=== PATIENT | female | born 1945 | race Caucasian/White ===

== ENCOUNTER 2017-01-23 23:46 | Inpatient (IN) | payer OTHER ==
[~2017-01-23] VITALS: Ht 162.6 cm; Wt 96.0 kg
[2017-01-24] VITALS (27 sets, daily range): BP systolic 75–146; BP diastolic 49–84; PULSE 64–132; TEMP 37–38.5; O2SAT 30–100; BMI 34.2
[2017-01-24] MEDS ORDERED: SODIUM CHLORIDE 0.9% 1000ML 1,000 ML IV SCH (01:45)
--- NOTE | 2017-01-24 01:50 | History and Physical ---
History & Physical Date & Time of Service: Jan 24, 2017 at 01:50 Chief Complaint: Sepsis, Unknown Source Primary Care Physician: Chato Tavarez M.D. History of Present Illness Source: family, hospital records Patient presented to the ED in [place] with family members for concern for sepsis earlier today. According to hospital records the patient was suffering from " burning up", cough and vomiting frequently in the am. Throughout the day the patient had started to develop an altered level of consciousness and brought her to the E D for evaluation. The patient was assessed and was extremely agitated in the ED. She was given 4 mg of Haldol and 4 mg of Ativan for agitation. She was found to have a lactate of 2.6 and a WBC of 11.5. The axillary temp was WNL however her rectal temp was found to be 102.5F. The patient received 2 G of Rocephin in their ED and 2 L of fluids. No source of sepsis was noted. Our hospitalist was contacted for transfer. She did receive an additional bolus of fluid en route. Past Medical/Surgical History Acute SC with stent placement HTN DMII Appendectomy Hysterectomy Family History Unable to obtain Social History Smoking Status: Unknown if Ever Smoked Smokeless Tobacco Use: Unknown Marital Status: Housing status: lives with family Immunizations History of Influenza Vaccine: Unknown History of Tetanus Vaccine?: Unknown History of Pneumococcal: Unknown History of Hepatitis B Vaccine: Unknown Allergies Coded Allergies: No Known Allergies (Unverified , 01/24/17) Home Medications Scheduled Alprazolam (Alprazolam), 1 TAB PO DAILY Atorvastatin (Lipitor), 1 TAB PO DAILY Citalopram Hydrobromide (Citalopram Hydrobromide), 1 TAB PO DAILY Clopidogrel (Plavix), 75 MG PO DAILY Famotidine (Pepcid), 40 MG PO DAILY Folic Acid (Folvite), 1 TAB PO DAILY Furosemide (Lasix), 1 TAB PO DAILY Gabapentin (Neurontin), 100 MG PO BID Glipizide (Glucotrol), 1 TAB PO BID Insulin Human NPH (Humulin N), DAILY Scheduled PRN Hydrocodone/Acetaminophen 10MG/325MG (Reliance 10MG/325MG), 1 TAB PO BID PRN for Pain Miscellaneous Medications Insulin Lispro (Human) (Humalog Kwikpen), SC Review of Systems Unable to obtain reliable ROS secondary to sedation Physical Exam General Appearance: + pertinent finding (somnolent) Head: normocephalic, atraumatic Eyes: normal inspection ENT: normal ENT inspection Neck: supple Respiratory/Chest: normal breath sounds, no respiratory distress, no accessory muscle use Cardiovascular: regular rate, rhythm, no murmur, normal peripheral pulses Abdomen/GI: normal bowel sounds, non tender, soft Back: normal inspection Extremities/Musculoskelatal: no calf tenderness, no pedal edema, normal range of motion Neurologic/Psych: + disoriented, + pertinent finding (somnolent) Skin: warm/dry, no rash, + pertinent finding (flushed) Lymphatic: no adenopathy Impression Assessment and Plan Sepsis of an unknown source - ICU admission - As there is known source for sepsis and exam is essentially benign decision was made for CT chest/ abd / pelvis - CBC/ CMP/ INR/ PTT - Lipase - Troponin/ CKMB/ CPK - Lyme/ Influenza - EKG - CT head considering level of agitation/ combativeness/ ALOC - Empirically cover with zosyn/ vanc/ levofloxacin - NSS @ 1250 cc/h - NPO - blood cultures DMII - Glipizide held - Insulin ISS with BSG AC/ HS - glycemic control consult HTN /CAD - Atorvastatin 40 mg held - Plavix and lasix 20 mg held Depression/ anxiety - Citalopram 20 mg held - alprazolam 0.5 mg daily held; Ativan 1 mg IV is available Neuropathy - Gabapentin 100 mg bid held - Hydrocodone- acet 10-325 mg held GERD - Famotidine 40 mg held - Protonix 40 mg IV daily for GI prophylaxis DVT Prophylaxis - SCD, heparin bid Son: Dimitri [phone] Attending Addendum: I have physically seen and examined this patient, have directed the resident's medical activities, and agree with the H&P as noted above with the following exceptions as noted. The patient is sedated, normocephalic and atraumatic, lying in bed and in no acute distress. HEENT--PERRL, EOMI, mucous membranes and oropharynx dry. Neck--supple, no JVD or bruits, thyroid normal, trachea midline, no adenopathy. Heart--normal S1 and S2, no extra beats, no murmurs, rubs or gallops. Lungs--decreased breath sounds throughout, no respiratory distress, no accessory muscle use. Abdomen--normal bowel sounds and soft, nontender and nondistended, no hernias or masses, no organomegaly. Extremities--no cyanosis, clubbing or edema. There are good distal pulses b/l. Dermatologic--normal skin turgor, normal color, warm and dry, no abnormal lymph nodes, no rash. Neurologic--cranial nerves II through XII grossly intact. Rheumatologic--normal range of motion. Psychiatric--sedated, intermittently disoriented Assessment and Plan: Sepsis, presumptive UTI-- Admit to the ICU. Order full Laboratories including cardiac enzymes noted above. Check Lyme and influenza Order CTA of the head, chest abdomen and pelvis to look for source. Empirically treat with Zosyn IV, vancomycin IV and Levaquin IV. NSS at 125 ML's per hour Follow urine and blood cultures. Check EKG. Diabetes mellitus-- Oral medications held Place on Accu-Cheks before meals and at bedtime or 4 times a day with NovoLog coverage per scale CAD/hypertension/CABG-- Hold atorvastatin, Plavix and Lasix until taking oral meds. Anxiety with depression-- Hold citalopram and alprazolam until taking by mouth. As a 1 mg IV every 4 hours when necessary GERD-- Hold oral famotidine. Protonix 40 mg IV daily. Neuropathy-- Hold gabapentin taking oral. Level of Care Critical Care Advanced Directives Existing Advance Directive: No Existing Living Will: No Existing Power of Sql Report Developer: No Resuscitation Status FULL RESUSCITATION VTE Prophylaxis VTE Risk Assessment Done? Y/N: Yes Risk Level: Moderate Given or contraindicated: Unfractionated heparin SQ, SCD's Social Service Consult None Apply Note Total Time: Critical Care 30 - 74 minutes Additional Copies To Chato Tavarez M.D.
[2017-01-24] MEDS ORDERED: LORAZEPAM 2 MG/ML 1 ML VIAL ONE (01:54)
[2017-01-24] MEDS ORDERED: LORAZEPAM INJ 1 MG in SYRINGE 0.5 ML IV PRN (02:00)
[2017-01-24] MEDS ORDERED: OPTIRAY 320 IV PRN (02:00)
[2017-01-24] MEDS ORDERED: PHARMACY GLYCEMIC MGMT CONSULT PRN (02:06)
[2017-01-24] MEDS ORDERED: PATIENT'S ALLERGY INFO NEEDS ENTERED SCH (02:15)
[2017-01-24] MEDS ORDERED: PATIENT'S HEIGHT AND/OR WEIGHT NEEDED SCH (02:15)
[2017-01-24] MEDS: LORAZEPAM 2 MG/ML 1 ML VIAL IV PRN ×3 (02:57→14:38)
[2017-01-24] MEDS ORDERED: LEVOFLOXACIN / D5W 750 MG in PREMIXED IN D5W 150 ML IV STA (02:58)
[2017-01-24] MEDS ORDERED: PIPERACILL/TAZOBAC IV 3.375 GM in DEXTROSE 5% 100ML 100 ML IV STA (02:59)
[2017-01-24] MEDS ORDERED: FOLI1TAB7 PO (03:04)
[2017-01-24] MEDS ORDERED: ATOR-24 PO (03:04)
[2017-01-24] MEDS ORDERED: CLOP1TAB15 PO (03:04)
[2017-01-24] MEDS ORDERED: FURO-85 PO (03:04)
[2017-01-24] MEDS ORDERED: HYDR-4079 PO (03:04)
[2017-01-24] MEDS ORDERED: INSU100I2 SC (03:04)
[2017-01-24] MEDS ORDERED: GLIP10TA9 PO (03:04)
[2017-01-24] MEDS ORDERED: ALPR-411 PO (03:04)
[2017-01-24] MEDS ORDERED: GABA-112 PO (03:04)
[2017-01-24] MEDS ORDERED: CITA20TA4 PO (03:04)
[2017-01-24] MEDS ORDERED: INSHNI (03:04)
[2017-01-24] MEDS ORDERED: FAMO40TA6 PO (03:04)
[2017-01-24 03:28] LABS: BASO % 0.1 %; BASO ABS # 0.02 K/uL (0-0.2); COMPLETE YES; HEMATOCRIT 41.6 % (37-47); IG% 0.3 %; LYMPH % 7.4 %; LYMPH ABS # 1.15 K/uL (1.2-3.4); MEAN CELL VOLUME 86.8 fL (80-100); MEAN CORPUSCULAR HGB CONC 33.4 g/dl (32-36); MEAN PLATELET VOLUME 11.5 fL (7.4-10.4); MONO % 2.7 %; NEUT % 89.5 %; PLATELET COUNT 262 K/uL (130-400); RED BLOOD COUNT 4.79 M/uL (4.2-5.4); WHITE BLOOD COUNT 15.46 K/uL (4.8-10.8)
[2017-01-24 03:35] LABS: PARTIAL THROMBOPLASTIN RATIO 0.9
[2017-01-24] MEDS ORDERED: NURSING VERBAL MED ORDER STA ×2 (03:49→06:25)
[2017-01-24 03:51] LABS: ALT/SGPT 18 U/L (12-78); AST/SGOT 15 U/L (15-37); BLOOD UREA NITROGEN 9 mg/dl (7-18); BUN/CREATININE RATIO 10.8 (10-20); CALCIUM 8.1 mg/dl (8.5-10.1); CARBON DIOXIDE 25 mmol/L (21-32); CHLORIDE 103 mmol/L (98-107); CREATININE 0.87 mg/dl (0.60-1.20); GLUCOSE 263 mg/dl (70-99); MAGNESIUM 1.3 mg/dl (1.8-2.4); POTASSIUM 3.8 mmol/L (3.5-5.1); SODIUM 138 mmol/L (136-145)
[2017-01-24] MEDS ORDERED: LORAZEPAM 2 MG/ML 1 ML VIAL IV STA (03:53)
[2017-01-24 03:58] LABS: ALB/GLOB RATIO 0.8 (0.9-2); ALKALINE PHOSPHATASE 97 U/L (45-117); CKMB/CK RATIO 7.2 (0-3.0)
[2017-01-24] MEDS ORDERED: INSULIN ASPART 100 UNITS/ML 3 ML PEN SC STA ×2 (04:03→06:48)
[2017-01-24] MEDS ORDERED: LANTUS PER UNIT CHARGE SQ STA (04:03)
[2017-01-24] MEDS ORDERED: METOPROLOL TARTRATE 1 MG/ML VIAL IV STA ×2 (04:14→04:33)
[2017-01-24] MEDS ORDERED: VANCOMYCIN CONSULT ACTIVE PRN (04:15)
[2017-01-24 04:16] LABS: LYME DISEASE AB IGG NEG (NEG); LYME DISEASE AB IGM NEG (NEG)
[2017-01-24] MEDS ORDERED: METOPROLOL TARTRATE 1 MG/ML VIAL ONE (04:22)
[2017-01-24] MEDS ORDERED: VANCOMYCIN INJ 2,000 MG in SODIUM CHLORIDE 0.9% 500ML 500 ML IV SCH (04:30)
[2017-01-24] MEDS ORDERED: INFLUENZA ADMINISTRATION CHARGE ONE (04:30)
[2017-01-24] MEDS ORDERED: INFLUENZA VACCINE HIGH DOSE 65+ 0.5 ML SYR IM. ONE (04:30)
[2017-01-24] MEDS: NSS + 20MEQ KCL 1000ML 1,000 ML IV SCH ×2 (04:30→18:36)
[2017-01-24] MEDS ORDERED: PIPERACILL/TAZOBAC CONSULT ACTIVE PRN (04:30)
[2017-01-24 04:40] LABS: INFLUENZA A PCR Neg for Influ A (NEG); INFLUENZA B PCR Neg for Influ B (NEG)
[2017-01-24] MEDS: MAGNESIUM SULFATE 1GM / D5W 1 GM in PREMIXED IN D5W 100 ML IV SCH ×2 (05:13→06:12)
--- NOTE | 2017-01-24 06:33 | DIAGNOSTIC IMAGING REPORT ---
HEAD WITHOUT CONTRAST (CT) CLINICAL HISTORY: 72 years-old Female with ALOC. Acute loss of consciousness. TECHNIQUE: Multiple axial CT images of the head were obtained without contrast. A dose lowering technique was utilized adhering to the principles of ALARA. COMPARISON: None. FINDINGS: Limited study secondary to motion No acute intracranial hemorrhage, midline shift, mass, large territorial ischemia or abnormal extra-axial collection. Mild atrophy with chronic microvascular ischemic changes. The calvarium is intact. The paranasal sinuses, mastoid air cells, and middle ear cavities are clear. IMPRESSION: 1. No acute intracranial abnormality. 2. Mild atrophy with chronic microvascular ischemic changes. The above report was generated using voice recognition software. It may contain grammatical, syntax or spelling errors. Electronically signed by: Kevan Parra M.D. 01/24/2017 6:32 AM Dictated Date/Time: 01/24/2017 6:30 AM
--- NOTE | 2017-01-24 06:40 | DIAGNOSTIC IMAGING REPORT ---
CT ABD/PELVIS IV CONTRAST ONLY CLINICAL HISTORY: sepsis unknown source COMPARISON STUDY: None. TECHNIQUE: Following the IV administration of 92 mL of Optiray-320, CT scan of the abdomen and pelvis was performed from the lung bases to the proximal femurs. Images are reviewed in the axial, sagittal, and coronal planes. IV contrast was administered without complication. A dose lowering technique was utilized adhering to the principles of ALARA. CT DOSE: FINDINGS: Lower chest: There is respiratory motion artifact. There are dependent atelectatic changes. Liver: The contrast-enhanced liver is normal in size, contour, and attenuation. There is no intrahepatic biliary ductal dilatation. The hepatic veins and portal veins are patent. Gallbladder: Unremarkable. Spleen: Normal in size and attenuation. Pancreas: Unremarkable. Adrenal glands: Unremarkable. Kidneys: There is a 13 mm left renal cyst. There is no hydronephrosis. Bowel: There are no transition zones indicate bowel obstruction. There are multiple colonic diverticula present. There is no acute diverticulitis. There are no findings to indicate acute appendicitis. Peritoneum: There is no intraperitoneal free air or abdominal ascites. 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 There is no evidence of abdominal aortic aneurysm. Adenopathy: None. Pelvic viscera: The uterus appears surgically absent. There is indwelling Soares catheter. Air within the bladder is likely iatrogenic. Skeletal structures: No destructive osseous lesions are seen. IMPRESSION: 1. Study compromised due to patient motion artifact 2. No evidence of bowel obstruction. No evidence of free air 3. No acute inflammatory changes Electronically signed by: Nemesio Wright M.D. 01/24/2017 6:39 AM Dictated Date/Time: 01/24/2017 6:36 AM
[2017-01-24] MEDS ORDERED: NURSING VERBAL MED ORDER ONE ×2 (06:45→21:15)
--- NOTE | 2017-01-24 06:48 | DIAGNOSTIC IMAGING REPORT ---
CT ANGIOGRAM OF THE CHEST CLINICAL HISTORY: Sepsis. Clinical suspected pulmonary embolism. COMPARISON STUDY: No previous studies for comparison. TECHNIQUE: Following the IV administration of 92 mL of Optiray-320, CT angiogram of the thorax was performed from the thoracic inlet to the lung bases utilizing the pulmonary embolus protocol. Images are reviewed in the axial, sagittal, and coronal planes. IV contrast was administered without complication. MIP imaging was performed. A dose lowering technique was utilized adhering to the principles of ALARA. CT DOSE: 3692.36 mGy.cm FINDINGS: No pathologically enlarged axillary mediastinal or hilar lymph nodes were visualized. There was no evidence of thoracic aortic dilatation. Evaluation of the pulmonary arteries are limited due to respiratory motion artifact. No central emboli are visualized. No pleural effusions are visualized. The examination is compromised due to motion artifact. There is no focal pulmonary consolidation. There are minor dependent atelectatic changes. The heart is enlarged. IMPRESSION: 1. Significantly limited study secondary to motion artifact 2. No pulmonary emboli identified 3. No evidence of focal pulmonary consolidation 4. Cardiomegaly Electronically signed by: Nemesio Wright M.D. 01/24/2017 6:46 AM Dictated Date/Time: 01/24/2017 6:43 AM
[2017-01-24] MEDS: INSULIN ASPART 100 UNITS/ML 3 ML PEN SC SCH ×4 (06:51→20:33)
[2017-01-24] MEDS ORDERED: ETOMIDATE 2 MG/ML 20 ML VIAL IV ONE (07:14)
[2017-01-24] MEDS ORDERED: GLYCOPYRROLATE INJ 0.2 MG/ML VIAL IM ONE (09:00)
[2017-01-24] MEDS ORDERED: VANCOMYCIN INJ 1,000 MG in SODIUM CHLORIDE 0.9% 250ML 250 ML IV SCH (09:00)
[2017-01-24] MEDS ORDERED: KETAMINE HCL INJ 100 MG/ML 5ML VIAL IM ONE (09:00)
[2017-01-24] MEDS ORDERED: MIDAZOLAM HCL 1 MG/ML 2ML VIAL IM ONE (09:00)
[2017-01-24 09:09] LABS: ISTAT ALLEN TEST Pass; ISTAT ARTERIAL BLOOD GAS HCO3 23 meq/L (19-24); ISTAT ARTERIAL BLOOD GAS PCO2 35 mmHg (35-46); ISTAT ARTERIAL BLOOD GAS PO2 96 mmHg (80-95); ISTAT ARTERIAL BLOOD GAS pH 7.43 (7.35-7.45); ISTAT CARBON DIOXIDE 24 mEq/l (24-31); ISTAT DELIVERY SYSTEM Cannula; ISTAT SITE L Radial
--- NOTE | 2017-01-24 10:00 | Critical Care Consultation ---
Critical Care Consultation Date of Consultation: Jan 24, 2017. Attending Physician: Ezra Mast M.D. Reason for Consultation: AMS, need to watch airway History of Present Illness 72F p/w AMS x 1 day duration. Was agitated in the ER and received 4mg of Haldol and 4mg of Ativan. Pt is unable to provide a history due to AMS. She has a 1 to 1 in the room because she was pulling at her lines. Wells catheter in place. Will try to talk to the family when they arrive. Per H&P AMS lasted from one day duration. Pt is being treated for sepsis with an unknown source. Possibilities include urosepsis or meningitis. Pt would need to be sedated for an LP. At present pt's airways appears secure. Sating well on room air. Wells is draining yellow urine, close evidence of clots. From chart review pt appears to have PMHx of depression, HLD and ICDM2. SHx: Lives in [place] Update:11am: spoke with daughter, pt lives with and daughter's step brother, according to the and son the pt was AMS since 4pm, daughter believes that the time course could be extended. PMHx : CABG in [place] one year ago, possible TIA many years ago, ICDM2, HTN , HLD. Plan of care was explained to the pt and all questions were answered. Family History Patient reports no known family medical history. Social History Smoking Status: Unknown if Ever Smoked Smokeless Tobacco Use: Unknown Marital Status: Allergies Coded Allergies: No Known Allergies (Unverified , 01/24/17) Home Medications Scheduled Alprazolam (Alprazolam), 1 TAB PO DAILY Atorvastatin (Lipitor), 1 TAB PO DAILY Citalopram Hydrobromide (Citalopram Hydrobromide), 1 TAB PO DAILY Clopidogrel (Plavix), 75 MG PO DAILY Famotidine (Pepcid), 40 MG PO DAILY Folic Acid (Folvite), 1 TAB PO DAILY Furosemide (Lasix), 1 TAB PO DAILY Gabapentin (Neurontin), 100 MG PO BID Glipizide (Glucotrol), 1 TAB PO BID Insulin Human NPH (Humulin N), DAILY Scheduled PRN Hydrocodone/Acetaminophen 10MG/325MG ([place] 10MG/325MG), 1 TAB PO BID PRN for Pain Miscellaneous Medications Insulin Lispro (Human) (Humalog Kwikpen), SC Current Inpatient Medications Current Inpatient Medications Medications (Trade) Dose Ordered Sig/Clint Route Start Time Stop Time Status Last Admin Dose Admin Sodium Chloride 1,000 ml @ 125 mls/hr Q8H IV 01/24/17 01:45 02/23/17 01:44 Future Hold 01/24/17 02:52 125 MLS/HR Lorazepam 1 mg/ Syringe 1 ml @ 0.5 mls/min Q4H PRN IV 01/24/17 02:00 02/23/17 01:59 Ioversol (Optiray 320) 100 ml UD PRN IV 01/24/17 02:00 01/28/17 01:59 Insulin Aspart (novoLOG ASPART) SLIDING SCALE G... ACHS SC 01/24/17 07:00 02/23/17 06:59 01/24/17 06:51 4 UNITS Miscellaneous Information (Consult Glycemic Management Pharmacy) 1 ea DAILY PRN N/A 01/24/17 02:06 02/23/17 02:05 Lorazepam (Ativan Inj) 1 mg Q4H PRN IV 01/24/17 03:00 02/23/17 02:59 01/24/17 06:26 1 MG Levofloxacin 750 mg/Prmx 150 ml @ 100 mls/hr DAILY@0300 IV 01/25/17 03:00 01/25/17 04:29 Vancomycin HCl (Consult) 1 ea UD PRN N/A 01/24/17 04:15 02/23/17 04:14 Piperacillin Sod/ Tazobactam Sod (Consult) 1 ea UD PRN N/A 01/24/17 04:30 02/23/17 04:29 Potassium Chloride/Sodium Chloride 1,000 ml @ 125 mls/hr Q8H IV 01/24/17 04:15 02/23/17 04:14 01/24/17 04:30 125 MLS/HR Review of Systems Unable to obtain a complete ROS because patient is at present altered when examined in the AM. Constitutional: + fever Physical Exam Date Time Temp Pulse Resp B/P (MAP) Pulse Ox O2 Delivery O2 Flow Rate FiO2 01/24/17 08:00 95 Nasal Cannula 2.0 01/24/17 06:02 127 24 104/79 (85) 95 01/24/17 06:00 127 20 97 01/24/17 05:02 38.2 113 20 146/57 (95) 98 01/24/17 04:45 38.2 104 17 99 01/24/17 04:43 110 128/73 01/24/17 04:40 38.3 107 13 128/73 (92) 97 01/24/17 04:30 136 120/67 01/24/17 04:27 38.3 115 16 120/67 (86) 95 01/24/17 04:15 38.4 132 19 97 01/24/17 04:01 38.4 129 12 123/70 (90) 96 01/24/17 04:00 100 Nasal Cannula 2.0 01/24/17 03:12 38.4 126 23 133/65 (92) 100 01/24/17 03:10 38.4 130 18 98 01/24/17 02:46 144/80 (109) 01/24/17 01:45 38.5 126 28 146/84 98 Nasal Cannula 2.0 General Appearance: moderate distress, other (Pt is rolling around in the bed, not talking, intermittently she has jumbled speech. ) Eyes: PERRLA, EOMI Respiratory: breath sounds normal, clear to auscultation, clear to percussion, no respiratory distress, no tenderness, accessory muscle use Cardiovasular: normal S1S2, no M/G/R, other (tachycardic) Abdomen: non tender, normal bowel sounds, no rebound Genitourinary - Female: other (wells in place draining yellow urine) Back: normal inspection, no midline tenderness, no CVA tenderness Upper Extremities: no edema Lower Extremities: no edema Pulses: dorsalis pedis (R) (2+), dorsalis pedis (L) (2+) Neuro: disoriented, confused, other (patient does not answer questions appropriately, she does retract to pain. GCS of 12(-2 for verbal, -1 for motor)) Psychiatric: other (cannot appreciate affect, pt appears mildly to moderately agitated.) Laboratory Results Last 24 Hours Test 01/24/17 01:45 01/24/17 02:40 01/24/17 02:43 01/24/17 03:10 Creatine Kinase MB Ratio 7.2 Blood Gas Sample Site L Radial Bedside Blood Gas pH (LAB) 7.43 Bedside Blood Gas pCO2 (LAB) 35 mmHg Bedside Blood Gas pO2 (LAB) 96 mmHg Bedside Blood Gas HCO3 (LAB) 23 meq/L Bedside Blood Gas Total CO2 24 mEq/l Bedside Blood Gas Base Excess (LAB) -1.0 meq/L Bedside Blood Gas O2 Saturation 97.0 % Dinh Test Pass Oxygen Delivery Device Cannula Influenza Type A (RT-PCR) Neg for Influ A Influenza Type B (RT-PCR) Neg for Influ B White Blood Count 15.46 K/uL Red Blood Count 4.79 M/uL Hemoglobin 13.9 g/dL Hematocrit 41.6 % Mean Corpuscular Volume 86.8 fL Mean Corpuscular Hemoglobin 29.0 pg Mean Corpuscular Hemoglobin Concent 33.4 g/dl Platelet Count 262 K/uL Mean Platelet Volume 11.5 fL Neutrophils (%) (Auto) 89.5 % Lymphocytes (%) (Auto) 7.4 % Monocytes (%) (Auto) 2.7 % Eosinophils (%) (Auto) 0.0 % Basophils (%) (Auto) 0.1 % Neutrophils # (Auto) 13.83 K/uL Lymphocytes # (Auto) 1.15 K/uL Monocytes # (Auto) 0.42 K/uL Eosinophils # (Auto) 0.00 K/uL Basophils # (Auto) 0.02 K/uL RDW Standard Deviation 43.5 fL RDW Coefficient of Variation 13.8 % Immature Granulocyte % (Auto) 0.3 % Immature Granulocyte # (Auto) 0.04 K/uL Prothrombin Time 11.0 SECONDS Prothromb Time International Ratio 1.0 Activated Partial Thromboplast Time 24.6 SECONDS Partial Thromboplastin Ratio 0.9 Sodium Level 138 mmol/L Potassium Level 3.8 mmol/L Chloride Level 103 mmol/L Carbon Dioxide Level 25 mmol/L Anion Gap 10.0 mmol/L Blood Urea Nitrogen 9 mg/dl Creatinine 0.87 mg/dl Estimated GFR () 77.7 Estimated GFR (Non- 67.0 BUN/Creatinine Ratio 10.8 Random Glucose 263 mg/dl Lactic Acid Level 2.9 mmol/L Calcium Level 8.1 mg/dl Magnesium Level 1.3 mg/dl Total Bilirubin 0.5 mg/dl Direct Bilirubin 0.1 mg/dl Aspartate Amino Transf (AST/SGOT) 15 U/L Alanine Aminotransferase (ALT/SGPT) 18 U/L Alkaline Phosphatase 97 U/L Total Creatine Kinase 95 U/L Creatine Kinase MB 6.8 ng/ml Troponin I 1.050 ng/ml Total Protein 7.5 gm/dl Albumin 3.4 gm/dl Globulin 4.1 gm/dl Albumin/Globulin Ratio 0.8 Lipase 79 U/L Lyme Disease IgG Antibody NEG Lyme Disease IgM Antibody NEG Hepatitis C Antibody Screen NEG Test 01/24/17 07:[address] ANGIOGRAM OF THE CHEST CLINICAL HISTORY: Sepsis. Clinical suspected pulmonary embolism. COMPARISON STUDY: No previous studies for comparison. TECHNIQUE: Following the IV administration of 92 mL of Optiray-320, CT angiogram of the thorax was performed from the thoracic inlet to the lung bases utilizing the pulmonary embolus protocol. Images are reviewed in the axial, sagittal, and coronal planes. IV contrast was administered without complication. MIP imaging was performed. A dose lowering technique was utilized adhering to the principles of ALARA. CT DOSE: 3692.36 mGy.cm FINDINGS: No pathologically enlarged axillary mediastinal or hilar lymph nodes were visualized. There was no evidence of thoracic aortic dilatation. Evaluation of the pulmonary arteries are limited due to respiratory motion artifact. No central emboli are visualized. No pleural effusions are visualized. The examination is compromised due to motion artifact. There is no focal pulmonary consolidation. There are minor dependent atelectatic changes. The heart is enlarged. IMPRESSION: 1. Significantly limited study secondary to motion artifact 2. No pulmonary emboli identified 3. No evidence of focal pulmonary consolidation 4. Cardiomegaly HEAD WITHOUT CONTRAST (CT) CLINICAL HISTORY: 72 years-old Female with ALOC. Acute loss of consciousness. TECHNIQUE: Multiple axial CT images of the head were obtained without contrast. A dose lowering technique was utilized adhering to the principles of ALARA. COMPARISON: None. FINDINGS: Limited study secondary to motion No acute intracranial hemorrhage, midline shift, mass, large territorial ischemia or abnormal extra-axial collection. Mild atrophy with chronic microvascular ischemic changes. The calvarium is intact. The paranasal sinuses, mastoid air cells, and middle ear cavities are clear. IMPRESSION: 1. No acute intracranial abnormality. 2. Mild atrophy with chronic microvascular ischemic changes. The above report was generated using voice recognition software. It may contain grammatical, syntax or spelling errors. CT ABD/PELVIS IV CONTRAST ONLY CLINICAL HISTORY: sepsis unknown source COMPARISON STUDY: None. TECHNIQUE: Following the IV administration of 92 mL of Optiray-320, CT scan of the abdomen and pelvis was performed from the lung bases to the proximal femurs. Images are reviewed in the axial, sagittal, and coronal planes. IV contrast was administered without complication. A dose lowering technique was utilized adhering to the principles of ALARA. CT DOSE: FINDINGS: Lower chest: There is respiratory motion artifact. There are dependent atelectatic changes. Liver: The contrast-enhanced liver is normal in size, contour, and attenuation. There is no intrahepatic biliary ductal dilatation. The hepatic veins and portal veins are patent. Gallbladder: Unremarkable. Spleen: Normal in size and attenuation. Pancreas: Unremarkable. Adrenal glands: Unremarkable. Kidneys: There is a 13 mm left renal cyst. There is no hydronephrosis. Bowel: There are no transition zones indicate bowel obstruction. There are multiple colonic diverticula present. There is no acute diverticulitis. There are no findings to indicate acute appendicitis. Peritoneum: There is no intraperitoneal free air or abdominal ascites. 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 There is no evidence of abdominal aortic aneurysm. Adenopathy: None. Pelvic viscera: The uterus appears surgically absent. There is indwelling Wells catheter. Air within the bladder is likely iatrogenic. Skeletal structures: No destructive osseous lesions are seen. IMPRESSION: 1. Study compromised due to patient motion artifact 2. No evidence of bowel obstruction. No evidence of free air 3. No acute inflammatory changes Assessment & Plan Reason Critically Ill: Need to monitor airway. 72F with AMS, admitted to the ICU, placed on Abx, sepsis of unknown etiology. CT head negative, CT Abdomen negative. ABG WNL. Urine tox screen pending. No prior hospital records to review. Neuro: * CAM ICU positive. * Sepsis of unknown origin, urosepsis vs meningitis. * CT Head negative. * According to med list pt takes Alprazolam and Hydrocodone- acet 10-325 mg daily, agitation may be an element of benzo/opioid withdrawal. * c/w Ativan 1mg Q4H PRN for anxiety. * Hold opioid pain meds. * Depression: Hold Citalopram 20mg * Neuropathy: Hold the 100mg Gabapentin. * Follow up UA and will order urine tox screen. CV - * Sinus tach with possible RBBB, awaiting official read. * Elevated Troponins: 1.05, will follow up Troponin at noon. * Echo ordered and pending, pt will likely require sedation for echo. * Pt is on Plavix at home, we will talk to family or patient once she stabilizes as to why. * HLD: Holding Lipitor 40mg daily. Resp - * CTA showed no acute process. * ABG showed a pH of 7.43, PO2 of 96 and a PCO2 of 35. * Pt is requiring 2LNC - it is unsure whether she requires it, we will try to wean this afternoon. Renal/ - * Creatinine is 0.87 * UA pending. * Urine tox pending. GI/Diet - * CT Abdo showed no acute pathology. * LFTs and Lipase WNL. * NPO for now. IVF of D5+1/2NSS+20meqKCL at 125mls/hr (we have lost our IV sites). * Protonix 40 mg IV daily for GI prophylaxis Endo - * Blood Sugars >200. * Pt received 15units of Lantus in the ER, will order Glycemic control consult. * Electrolytes: Na+ 138 K+3.8 * Mg 1.3, will give 1g Mag Oxide today. * No h/o thyroid illness. Will obtain TSH today. Heme - * Hgb 13.9 , Platelets 262 WNL. * Will hold off DVT Proph until LP, SCDs until then. ID - * Febrile, tachycardic, BPs good, WBC count of 10,000. * Empiric 2mg Rocephin Q12, 2g Amicillin Q4H. * Lyme and Influenza negative. * Consider LP today if pt doesnt improve. * Follow up urine and blood cultures. MSK - * PT and OT once medically stable. Dispo - ICU Social: Son Dimitri [phone], daughter is in Room. Lines - We lost two IV sites, RIGHT IJ Placement today. Full Code Resident Physician Supervision Note: I was present with Dr. Burns during the history and exam. I discussed the case with the resident and agree with the findings and plan as documented in the note. I personally examined this patient, reviewed her clinical and laboratory data, interpreted x-ray and formulated the plan of care. In summary, the patient is a 72 year old female with history of coronary artery disease, CABG hyperlipidemia, TIA 4 years ago, diabetes mellitus who developed fever, chills, became confused and agitated. She was brought to [facility] emergency room. Physical examination and CT scan did not reveal any obvious source of infection. CT scan of the chest without PE or infiltrates, mild cardiomegaly, CT of head without any intra-cranial abnormality with mild atrophy only, CT of abdomen and pelvis without obstruction or free air. Patient was treated with vancomycin and ceftriaxone and was transferred critically ill to the cardiac vascular intensive care ICU. On my physical examination, patient is agitated, moving all extremities, trying to stop in the bed. She does not follow commands. She was able to use short sentences, speech was clear. Lungs were clear, abdomen was soft, lower 70s were well- perfused. Suspected sepsis likely from urinary source. Patient has severe metabolic encephalopathy versus hyper active delirium. Meningitis cannot be ruled out. Unfortunately patient is too agitated in order to proceed with LP. We'll try to keep sedated with Haldol, midazolam, Precedex drip. Patient developed marginal hypotension and hypercapnia. BiPAP was initiated for acute respiratory failure. I believe it would not be safe to continue with BiPAP as patient has doubtful ability to protect her airway. We will proceed with intubation and full mechanical valve support. That would help with LP procedure. We will treat patient for suspected meningitis including vancomycin , ceftriaxone, ampicillin as patient is older than 65, start acyclovir. Antibiotic regimen would appropriately cover urinary tract pathogens too. History of coronary artery disease, status post 3 vessel CABG done 3 years ago. Troponins are slightly elevated. This reflects more demand ischemia then acute myocardial infarction. We'll trend troponins to make sure that there are declining. EKG did not reveal any significant ST changes. I spent 45 minutes of critical care time involved in managing this patient. This does not include placement of central line and intubation. Resident Involvement: Resident Care Provided Care Provided: [facility]
[2017-01-24 11:03] LABS: URINE APPEARANCE TURBID (CLEAR); URINE BILIRUBIN NEG (NEG); URINE COLOR DK YELLOW; URINE EPITHELIAL CELL AUTO >30 /lpf (0-5); URINE NITRITE NEG (NEG); URINE SPECIFIC GRAVITY > 1.045 (1.000-1.030); UROBILINOGEN NEG (NEG)
[2017-01-24 11:04] LABS: MANUAL MICROSCOPIC REQUIRED? NO; REVIEW REQ? YES
[2017-01-24] MEDS ORDERED: MAGNESIUM SULFATE 1GM / D5W 1 GM in PREMIXED IN D5W 100 ML IV ONE (11:30)
[2017-01-24] MEDS: CEFTRIAXONE SOD INJ 2000 MG in DEXTROSE 5% 50ML IV SCH ×2 (11:50→23:41)
[2017-01-24] MEDS: AMPICILLIN IV 2,000 MG in SODIUM CHLOR 0.9% AD-VAN 100ML 100 ML IV SCH ×3 (11:50→20:41)
[2017-01-24] MEDS ORDERED: INSULIN HUMAN REGULAR BOLUS IV ONE (12:15)
[2017-01-24] MEDS ORDERED: ACYCLOVIR CONSULT ACTIVE PRN (12:30)
[2017-01-24 12:32] LABS: THYROID STIMULATING HORMONE 4.63 uIu/ml (0.300-4.500)
--- NOTE | 2017-01-24 12:37 | Pharmacy Progress Note ---
Pharmacy Abx Dose Short Note Date of Service Jan 24, 2017. Assessment & Plan Pharmacy is consulted for the following: * Vancomycin IV * Acyclovir IV * Glycemic control Assessment * 72 year old female admitted for mental status changes, agitated delirium, fever, cough, nausea/vomiting, sepsis from unknown source --> currently suspect urosepsis vs meningitis. 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 * BlCx's and Urine Cx pending. UA may have been contaminated (>30 epis). Lyme and influenza negative. * LP to be performed later today. May be able to deescalate abx regimen after cell counts available. * Tmax 38.5 last 24 hrs, leukocytosis present, sinus tachy present, BP stable * eCrCl ~70-80cc/min Plan Vancomycin * Loading dose: 2000mg (~22mg/kg) began infusing at 0655, however patient's agitation led to loss of IV site multiple times. Infusion not completed until ~ [id number] * Maintenance dose: 1250mg (~13.8mg/kg) IV Q 12 hours * Goal trough level for meningitis : 15 to 20 mcg/mL * Trough level ordered for: 01/26/17 w/ maintenance dose Acyclovir * BMI 34.2, dosing to be based upon ideal body weight in the setting of obesity : 10mg/kg IBW IV Q 8 hours (550mg per dose) * No adjustment required as eCrCl > 50cc/min Glycemic Control * BSG 263 on first check. * Lantus 15 units x 1 given along w/ 3 + 4 units of SQ Novolog correction overnight * BSG down to 200 at this time * Given multiple IV ABX's required and need for Precedex sedation, will continue with a SQ Basal / Bolus regimen for now as BSG is responding to current treatment. * SQ regimen will be based upon moderate-severe stress level and weight: * Give 4 units IV regular insulin now * Lantus 15 units SQ Q 12 hours * Novolog SQ Q 4 hours * Goal range 120 - 150 mg/dL * Correction factor 18 mg/dL/unit * Carb ratio 1 unit per 6 grams carbs consumed * If BSG spikes above 250, begin IV insulin infusion: goal range 140-180mg/dL; moderate stress Pharmacy will continue to follow and will adjust dose/frequency as necessary. Thank you.
[2017-01-24 12:59] LABS: ISTAT ALLEN TEST Pass; ISTAT ARTERIAL BLOOD GAS HCO3 25 meq/L (19-24); ISTAT ARTERIAL BLOOD GAS PCO2 66 mmHg (35-46); ISTAT ARTERIAL BLOOD GAS PO2 147 mmHg (80-95); ISTAT ARTERIAL BLOOD GAS pH 7.19 (7.35-7.45); ISTAT CARBON DIOXIDE 27 mEq/l (24-31); ISTAT DELIVERY SYSTEM SimpleMask; ISTAT SITE R Radial
[2017-01-24] MEDS: ACYCLOVIR SOD INJ 550 MG in DEXTROSE 5% 100ML 100 ML IV SCH ×2 (13:08→23:41)
[2017-01-24] MEDS: DexMEDEtomidine HCL IV 200 MCG in SODIUM CHLORIDE 0.9% 50ML 48 ML IV PRN (14:01)
[2017-01-24] MEDS ORDERED: LANTUS PER UNIT CHARGE SQ SCH (16:00)
[2017-01-24] MEDS: INSULIN GLARGINE SOLOSTAR 100 UNITS/ML 3 ML PEN SC SCH (16:27)
[2017-01-24] MEDS ORDERED: RAPID SEQUENCE INDUCTION BAG ONE ×2 (17:51→21:46)
[2017-01-24] MEDS ORDERED: MIDAZOLAM 125MG/250ML D5W IV ONE (17:56)
--- NOTE | 2017-01-24 18:59 | Family Medicine Progress Note ---
Progress Note Date of Service Jan 24, 2017. Subjective Pt evaluation today including: conversation w/ family, physical exam, chart review, lab review Pain: unable to assess as non-verbal and agitated PO Intake: NPO Voiding: wells catheter in place This AM pt was very agitated and twisting in bed. Pt was nonverbal. Was unable to assess pain. According to daughter, she was febrile and in extreme pain ( probably abdominal) on 01/23 around 6pm when she arrived and had AMS. According to her step dad and brother, she had become uncomfortable at 4pm. Constitutional: + fever Abdomen: + pain Neurologic: + problem reported (AMS) Medications Current Inpatient Medications Medications (Trade) Dose Ordered Sig/Clint Route Start Time Stop Time Status Last Admin Dose Admin Lorazepam 1 mg/ Syringe 1 ml @ 0.5 mls/min Q4H PRN IV 01/24/17 02:00 02/23/17 01:59 Ioversol (Optiray 320) 100 ml UD PRN IV 01/24/17 02:00 01/28/17 01:59 Miscellaneous Information (Consult Glycemic Management Pharmacy) 1 ea DAILY PRN N/A 01/24/17 02:06 02/23/17 02:05 Lorazepam (Ativan Inj) 1 mg Q4H PRN IV 01/24/17 03:00 02/23/17 02:59 01/24/17 14:38 1 MG Vancomycin HCl (Consult) 1 ea UD PRN N/A 01/24/17 04:15 02/23/17 04:14 Potassium Chloride/Sodium Chloride 1,000 ml @ 125 mls/hr Q8H IV 01/24/17 04:15 02/23/17 04:14 01/24/17 18:36 125 MLS/HR Dexmedetomidine HCl 200 mcg/ Sodium Chloride 50 ml @ 0 mls/hr Q0M PRN IV 01/24/17 10:00 01/28/17 09:59 01/24/17 14:01 6.6 MLS/HR Ceftriaxone Sodium 2000 mg/ Dextrose 70 ml @ 140 mls/hr Q12H IV 01/24/17 11:00 02/03/17 10:59 01/24/17 11:50 140 MLS/HR Ampicillin Sodium 2000 mg/Sodium Chloride 108 ml @ 216 mls/hr Q4H IV 01/24/17 12:00 02/03/17 11:59 01/24/17 16:08 216 MLS/HR Insulin Aspart (novoLOG ASPART) SLIDING SCALE G... Q4 SC 01/24/17 16:00 02/23/17 15:59 01/24/17 16:26 208 UNITS Acyclovir Sodium 550 mg/Dextrose 111 ml @ 100 mls/hr Q8H IV 01/24/17 13:00 02/03/17 12:59 01/24/17 13:08 100 MLS/HR Acyclovir Sodium (Consult) 1 ea UD PRN N/A 01/24/17 12:30 02/23/17 12:29 Insulin Glargine (Lantus Solostar Pen) 15 units Q12H SC 01/24/17 16:00 02/23/17 15:59 01/24/17 16:27 15 UNITS Vancomycin HCl 1250 mg/Sodium Chloride 275 ml @ 125 mls/hr Q12H IV 01/25/17 00:00 02/04/17 00:00 Midazolam HCl 250 ml @ 2 mls/hr Q24H PRN IV 01/24/17 18:30 02/23/17 18:29 Objective Vital Signs Date Time Temp Pulse Resp B/P (MAP) Pulse Ox O2 Delivery O2 Flow Rate FiO2 01/24/17 18:25 30 01/24/17 16:00 95 BiPAP 30 01/24/17 14:56 82 93 30 01/24/17 12:00 95 Oxymask 6.0 01/24/17 08:00 95 Nasal Cannula 2.0 01/24/17 06:02 127 24 104/79 (85) 95 01/24/17 06:00 127 20 97 01/24/17 05:02 38.2 113 20 146/57 (95) 98 01/24/17 04:45 38.2 104 17 99 01/24/17 04:43 110 128/73 01/24/17 04:40 38.3 107 13 128/73 (92) 97 01/24/17 04:30 136 120/67 01/24/17 04:27 38.3 115 16 120/67 (86) 95 01/24/17 04:15 38.4 132 19 97 01/24/17 04:01 38.4 129 12 123/70 (90) 96 01/24/17 04:00 100 Nasal Cannula 2.0 01/24/17 03:12 38.4 126 23 133/65 (92) 100 01/24/17 03:10 38.4 130 18 98 01/24/17 02:46 144/80 (109) 01/24/17 01:45 38.5 126 28 146/84 98 Nasal Cannula 2.0 Physical Exam General Appearance: + moderate distress (unable to lie still ) Respiratory/Chest: lungs clear, normal breath sounds Cardiovascular: regular rate, rhythm Abdomen: normal bowel sounds, non tender, soft Extremities: normal inspection, no pedal edema Neurologic/Psychiatric: + disoriented, + pertinent finding (agitated) Skin: warm/dry Laboratory Results 01/24/17 03:10 Red Blood Count 4.79, Mean Corpuscular Volume 86.8, Mean Corpuscular Hemoglobin 29.0, Mean Corpuscular Hemoglobin Concent 33.4, Mean Platelet Volume 11.5, Neutrophils (%) (Auto) 89.5, Lymphocytes (%) (Auto) 7.4, Monocytes (%) (Auto) 2.7, Eosinophils (%) (Auto) 0.0, Basophils (%) (Auto) 0.1, Neutrophils # (Auto) 13.83, Lymphocytes # (Auto) 1.15, Monocytes # (Auto) 0.42, Eosinophils # (Auto) 0.00, Basophils # (Auto) 0.02 01/24/17 03:10 Test 01/24/17 02:43 01/24/17 03:10 01/24/17 10:45 01/24/17 11:52 Influenza Type A (RT-PCR) Neg for Influ A (NEG) Influenza Type B (RT-PCR) Neg for Influ B (NEG) White Blood Count 15.46 K/uL (4.8-10.8) Red Blood Count 4.79 M/uL (4.2-5.4) Hemoglobin 13.9 g/dL (12.0-16.0) Hematocrit 41.6 % (37-47) Mean Corpuscular Volume 86.8 fL (80-100) Mean Corpuscular Hemoglobin 29.0 pg (25-34) Mean Corpuscular Hemoglobin Concent 33.4 g/dl (32-36) Platelet Count 262 K/uL (130-400) Mean Platelet Volume 11.5 fL (7.4-10.4) Neutrophils (%) (Auto) 89.5 % Lymphocytes (%) (Auto) 7.4 % Monocytes (%) (Auto) 2.7 % Eosinophils (%) (Auto) 0.0 % Basophils (%) (Auto) 0.1 % Neutrophils # (Auto) 13.83 K/uL (1.4-6.5) Lymphocytes # (Auto) 1.15 K/uL (1.2-3.4) Monocytes # (Auto) 0.42 K/uL (0.11-0.59) Eosinophils # (Auto) 0.00 K/uL (0-0.5) Basophils # (Auto) 0.02 K/uL (0-0.2) RDW Standard Deviation 43.5 fL (36.4-46.3) RDW Coefficient of Variation 13.8 % (11.5-14.5) Immature Granulocyte % (Auto) 0.3 % Immature Granulocyte # (Auto) 0.04 K/uL (0.00-0.02) Prothrombin Time 11.0 SECONDS (9.0-12.0) Prothromb Time International Ratio 1.0 (0.9-1.1) Activated Partial Thromboplast Time 24.6 SECONDS (21.0-31.0) Partial Thromboplastin Ratio 0.9 Anion Gap 10.0 mmol/L (3-11) Estimated GFR () 77.7 Estimated GFR (Non- 67.0 BUN/Creatinine Ratio 10.8 (10-20) Calcium Level 8.1 mg/dl (8.5-10.1) Magnesium Level 1.3 mg/dl (1.8-2.4) Total Bilirubin 0.5 mg/dl (0.2-1) Direct Bilirubin 0.1 mg/dl (0-0.2) Aspartate Amino Transf (AST/SGOT) 15 U/L (15-37) Alanine Aminotransferase (ALT/SGPT) 18 U/L (12-78) Alkaline Phosphatase 97 U/L (45-117) Total Creatine Kinase 95 U/L (26-192) Creatine Kinase MB 6.8 ng/ml (0.5-3.6) Creatine Kinase MB Ratio 7.2 (0-3.0) Total Protein 7.5 gm/dl (6.4-8.2) Albumin 3.4 gm/dl (3.4-5.0) Globulin 4.1 gm/dl (2.5-4.0) Albumin/Globulin Ratio 0.8 (0.9-2) Lipase 79 U/L (73-393) Lyme Disease IgG Antibody NEG (NEG) Lyme Disease IgM Antibody NEG (NEG) Hepatitis C Antibody Screen NEG (NEG) Urine Color DK YELLOW Urine Appearance TURBID (CLEAR) Urine pH 5.0 (4.5-7.5) Urine Specific [place] > 1.045 (1.000-1.030) Urine Protein 2+ (NEG) Urine Glucose (UA) 3+ (NEG) Urine Ketones NEG (NEG) Urine Occult Blood 3+ (NEG) Urine Nitrite NEG (NEG) Urine Bilirubin NEG (NEG) Urine Urobilinogen NEG (NEG) Urine Leukocyte Esterase NEG (NEG) Urine WBC (Auto) 10-30 /hpf (0-5) Urine RBC (Auto) >30 /hpf (0-4) Urine Hyaline Casts (Auto) 1-5 /lpf (0-5) Urine Epithelial Cells (Auto) >30 /lpf (0-5) Urine Bacteria (Auto) NEG (NEG) Urine Renal Epithelial Cells /lpf (0-5) Urine Crystals URIC ACID (NONE PRSENT) Urine Pathogenic Casts /lpf (0) Urine Yeast (Auto) (NONE PRSENT) Lactic Acid Level 2.2 mmol/L (0.4-2.0) Troponin I 6.300 ng/ml (0-0.045) Thyroid Stimulating Hormone (TSH) 4.630 uIu/ml (0.300-4.500) Test 01/24/17 12:49 01/24/17 15:45 01/24/17 16:04 Blood Gas Sample Site R Radial Bedside Blood Gas pH (LAB) 7.19 (7.35-7.45) Bedside Blood Gas pCO2 (LAB) 66 mmHg (35-46) Bedside Blood Gas pO2 (LAB) 147 mmHg (80-95) Bedside Blood Gas HCO3 (LAB) 25 meq/L (19-24) Bedside Blood Gas Total CO2 27 mEq/l (24-31) Bedside Blood Gas Base Excess (LAB) -4.0 meq/L (-9-1.8) Bedside Blood Gas O2 Saturation 98.0 % (90-95) Dinh Test Pass Oxygen Delivery Device SimpleMask Bedside Glucose 208 mg/dl (70-90) Date/Time Source Procedure Growth Status 01/24/17 02:07 Nasal MRSA DNA Surveillance Screen - Final Specimen Negative for MRSA by DNA Probe Complete Assessment and Plan 72y/oF with hx of CAD, CABG, TIA 4 years ago, DM, HLD with sepsis of unknown etiology likely urosepsis vs. meningitis and metabolic encephalopathy. Occasionally hypotensive, Sepsis of an unknown source - ICU admission - CTA - no PE or consolidation, mild cardiomegaly - CT head (given agitation/AMS), abdomen and pelvis - no acute intracranial bleed or pathology, inflammatory changes, bowel obstruction or free air - Lipase and LFT wnl - Lyme/ Influenza neg - Empirically cover with - vanc, ceftriaxone, ampicillin and acyclovir - NSS @ 1250 cc/h - NPO - blood cultures pending - UCx pending Stress Ischemia vs. NV - hx of CAD/CABG - elevated troponin 1 -> 6 - EKG with non-specific T wave changes - Will trend troponin - cardiology consulted Metabolic encephalopathy - Likely due to urosepsis vs. meningitis (cannot rule out as too agitated for LP ) - Continue Vanc, ceftriaxone, ampicillin and acyclovir Agitation - Sedated with haldol, midazolam, and precedex drip Acute respiratory failure - hypercarbic - pCO2 66 - On Bipap DMII - Glipizide held - Insulin ISS with BSG AC/ HS - glycemic control consult HTN /CAD - Atorvastatin 40 mg held - Plavix and lasix 20 mg held Depression/ anxiety - Citalopram 20 mg held - alprazolam 0.5 mg daily held Neuropathy - Gabapentin 100 mg bid held - Hydrocodone- acet 10-325 mg held GERD - Famotidine 40 mg held - Protonix 40 mg IV daily for GI prophylaxis DVT Prophylaxis - SCD Son: Dimitri [phone] Resident Involvement: Resident Care Provided Care Provided: Adult Hospital Medicine Reviewed: Pt Seen/Exam by Me History sedated. unable to give any history on bipap Constitutional: denies: fever General Appearance: no apparent distress Respiratory: lungs clear (anteriorly), other (on bipap) Cardiovascular: regular rate, rhythm Gastrointestinal: normal bowel sounds, soft Neurologic/Psychiatric: other (sedated) Skin Characteristics: warm/dry Assessment/Plan Resident Physician Supervision Note: I independently interviewed and examined the patient and verified the kruger history and physical, reviewed labs and image studies, discussed the case with the resident Dr. Fatima and agree with the findings and care plan.
[2017-01-24] MEDS ORDERED: CLOPIDOGREL BISULFATE 75 MG TAB PO ONE (19:08)
[2017-01-24 19:12] LABS: ISTAT ALLEN TEST Pass; ISTAT ARTERIAL BLOOD GAS HCO3 21 meq/L (19-24); ISTAT ARTERIAL BLOOD GAS PCO2 52 mmHg (35-46); ISTAT ARTERIAL BLOOD GAS PO2 70 mmHg (80-95); ISTAT ARTERIAL BLOOD GAS pH 7.22 (7.35-7.45); ISTAT CARBON DIOXIDE 23 mEq/l (24-31); ISTAT DELIVERY SYSTEM Ventilator; ISTAT FIO2 30 %; ISTAT PEEP 6; ISTAT RATE 16; ISTAT SITE R Radial; VE 9.2; Vt 450
[2017-01-24] MEDS ORDERED: SODIUM CHLORIDE 0.9% 1000ML 1,000 ML IV ONE ×2 (19:30→20:30)
--- NOTE | 2017-01-24 20:25 | DIAGNOSTIC IMAGING REPORT ---
CHEST ONE VIEW PORTABLE CLINICAL HISTORY: ETT/NG insertion COMPARISON STUDY: Chest CT January 24, 2017. FINDINGS: The tip of the endotracheal tube is at the origin of the right mainstem bronchus. The tube could be withdrawn 2 cm. The tip of the nasogastric tube is below the lower aspect of this image but at least within the mid body of the stomach. There is no pneumothorax or pleural effusion. There is pulmonary vascular congestion without overt pulmonary edema. There is possible left basilar opacity. There are median sternotomy wires. Cardiomegaly is noted. IMPRESSION: 1. Tip of endotracheal tube at the takeoff of the right mainstem bronchus. The endotracheal tube could be withdrawn [address] Robert at time of dictation. 2. Pulmonary vascular congestion without overt pulmonary edema. 3. Possible left basilar atelectasis versus consolidation. Electronically signed by: Pola Castellanos M.D. 01/24/2017 8:24 PM Dictated Date/Time: 01/24/2017 8:17 PM
[2017-01-24] MEDS: ENOXAPARIN 100 MG/1ML SYR SQ SCH (20:31)
[2017-01-24] MEDS ORDERED: NOREPINEPHRINE BIT INJ 8 MG in DEXTROSE 5% 500ML 500 ML IV PRN (21:15)
--- NOTE | 2017-01-24 22:33 | DIAGNOSTIC IMAGING REPORT ---
CHEST ONE VIEW PORTABLE CLINICAL HISTORY: POST INTUBATION COMPARISON STUDY: Chest radiograph January 24, 2017 at 8:01 PM. FINDINGS: The tip of the endotracheal tube is 3.4 cm above the kilo. Tip of nasogastric tube is below the lower aspect of image but at least within the mid body of the stomach. This study is compromised due to body habitus and portable technique and suboptimal penetration. There is pulmonary vascular congestion without overt pulmonary edema. Possible left lower lung opacity. No pneumothorax is identified. Median sternotomy wires are present. IMPRESSION: 1. Tip of endotracheal tube 3.4 cm above the kilo. 2. Moderate cardiomegaly with pulmonary vascular congestion. 3. Possible left basilar opacity. Electronically signed by: Pola Castellanos M.D. 01/24/2017 10:32 PM Dictated Date/Time: 01/24/2017 10:29 PM
--- NOTE | 2017-01-24 22:33 | EMERGENCY ROOM VISIT NOTE ---
ED Visit Note First contact with patient: 22:32 I was called to evaluate the patient because she had removed her endotracheal tube. The patient was intubated for sepsis. I was called by the telephone solicitor supervisor and there was a request made for an endotracheal tube to be replaced. The patient was medicated using Etomidate. Endotracheal Intubation Indication sepsis. The patient was on 100% oxygen via NRB prior to the procedure. Suction, airway equipment, RSI drugs, respiratory equipment, and appropriate personnel were prepared prior to the initiation of the procedure. A time out was taken. Induction was performed with Etomidate. After observing the clinical benefit of the medications, the airway was easily visualized utilizing a 4.0 Mac Blade. A 7.5 size ETT tube was placed atraumatically to 22 cm using standard technique. The cuff inflated without signs of malfunction. There were bilateral breath sounds, positive colormetric change, no gastric sounds, a good capnography waveform, and post procedure pulse oximetry was 96%. There were no complications.
[2017-01-25] VITALS (47 sets, daily range): BP systolic 88–131; BP diastolic 49–75; PULSE 57–92; TEMP 36.9–37.9; O2SAT 40–100; BMI 36.2
[2017-01-25] MEDS: AMPICILLIN IV 2,000 MG in SODIUM CHLOR 0.9% AD-VAN 100ML 100 ML IV SCH ×7 (00:17→23:11)
[2017-01-25] MEDS: VANCOMYCIN INJ 1,250 MG in SODIUM CHLORIDE 0.9% 250ML 250 ML IV SCH ×3 (00:17→23:12)
[2017-01-25] MEDS: INSULIN ASPART 100 UNITS/ML 3 ML PEN SC SCH ×6 (00:18→20:00)
[2017-01-25] MEDS: NSS + 20MEQ KCL 1000ML 1,000 ML IV SCH ×3 (02:19→18:00)
[2017-01-25] MEDS ORDERED: LEVOFLOXACIN / D5W 750 MG in PREMIXED IN D5W 150 ML IV SCH (03:00)
[2017-01-25] MEDS: INSULIN GLARGINE SOLOSTAR 100 UNITS/ML 3 ML PEN SC SCH ×2 (04:02→17:49)
[2017-01-25] MEDS: ACYCLOVIR SOD INJ 550 MG in DEXTROSE 5% 100ML 100 ML IV SCH ×3 (04:45→20:29)
[2017-01-25 05:49] LABS: BASO % 0.1 %; BASO ABS # 0.02 K/uL (0-0.2); COMPLETE YES; EOS % 0.4 %; HEMATOCRIT 36.9 % (37-47); IG% 0.4 %; LYMPH % 19.4 %; LYMPH ABS # 2.65 K/uL (1.2-3.4); MEAN CELL VOLUME 88.9 fL (80-100); MEAN CORPUSCULAR HEMOGLOBIN 28.9 pg (25-34); MEAN CORPUSCULAR HGB CONC 32.5 g/dl (32-36); MEAN PLATELET VOLUME 11.5 fL (7.4-10.4); MONO % 7.9 %; NEUT % 71.8 %; PLATELET COUNT 210 K/uL (130-400); RED BLOOD COUNT 4.15 M/uL (4.2-5.4); WHITE BLOOD COUNT 13.67 K/uL (4.8-10.8)
[2017-01-25 06:25] LABS: BUN/CREATININE RATIO 18.2 (10-20); CALCIUM 7.3 mg/dl (8.5-10.1); CREATININE 0.85 mg/dl (0.60-1.20); MAGNESIUM 2.1 mg/dl (1.8-2.4); POTASSIUM 3.9 mmol/L (3.5-5.1)
[2017-01-25] MEDS: DexMEDEtomidine HCL IV 200 MCG in SODIUM CHLORIDE 0.9% 50ML 48 ML IV PRN (07:38)
[2017-01-25] MEDS: ENOXAPARIN 100 MG/1ML SYR SQ SCH ×2 (08:44→20:28)
[2017-01-25] MEDS: CLOPIDOGREL BISULFATE 75 MG TAB PO SCH (08:44)
--- NOTE | 2017-01-25 08:52 | Critical Care Progress Note ---
Critical Care Progress Note Date of Service Jan 25, 2017. ICU Day ICU Day Number: [address] Yesica Miller The patient was seen and examined at bedside. Pt was intubated around 6pm yesterday and self extubated around 10pm. One to one was replaced in the room. Pt gets severely agitated. She is currently on 0.4mg of Precedex and 4mg of Versed. Pt is intubated and sedated. Will discuss plan of care with daughter and /or significant other (?) when they arrive. Ros: Unable to obtain due to pt's baseline medical condition. Objective General Appearance: mild distress, sedated, intubated. Eyes: PERRLA, EOMI. Respiratory: breath sounds normal, clear to auscultation, clear to percussion, no respiratory distress, no tenderness, accessory muscle use CV: normal S1S2, no M/G/R, other (tachycardic) Abdomen: non tender, normal bowel sounds, no rebound Genitourinary - Female: other (wells in place, dark red urine) Back: normal inspection, no midline tenderness, no CVA tenderness Upper Extremities: no edema Lower Extremities: no edema, R Groin Central line in place. Pulses: dorsalis pedis (R) (2+), dorsalis pedis (L) (2+) Neuro: disoriented, confused, other (patient does not answer questions appropriately, she does retract to pain. GCS of 12(-2 for verbal, -1 for motor)) Psychiatric: other (cannot appreciate affect.) Current SOFA Score SOFA Score Response (Comments) Value Platelets (x10) > 150 0 Bilirubin (mg/dL) < 1.2 0 Yomaira Coma Score 13 - 14 1 Level of Hypotension No Hypotension 0 Creatinine (mg/dL) < 1.2 0 Total 1 Assessment & Plan Reason Critically Ill: Intubated and sedated. 72F with AMS, admitted to the ICU, placed on Abx, sepsis of unknown etiology. CT head negative, CT Abdomen negative. ABG WNL. Urine tox screen pending. Pt was intubated around 6pm on 01/24/2017 and self extubated around 10pm that evening. No prior hospital records to review. Neuro: * CAM ICU positive. * Sepsis of unknown origin, urosepsis vs meningitis. (THere were no meningeal signs in the history) * CT Head negative. * According to med list pt takes Alprazolam and Hydrocodone- acet 10-325 mg daily, agitation may be an element of benzo/opioid withdrawal. * c/w Ativan 1mg Q4H PRN for anxiety. * Will add Fentanyl drip PRN for sedation. * Pt is currently intubated and sedated with Precedex and Versed. * Mood: Will start Seroquel 50mg QID via NG tube. * Neuropathy: Hold the 100mg Gabapentin. * UA does not suggest UTI - Urine tox was a send out, will wait for results to come back. CV - * EKG from yesterday evening shows * T wave inversion now evident in Anterolateral leads * ST elevation now present in Inferior leads. * Pt has a history of CABG approx 1 year ago in [place] (according to daughter) * Elevated Troponins: 1-->10-->12 this AM, Cardiology consulted ([facility] [place] * Echo ordered. * Restarting Home Plavix. * starting ASA 81mg daily. * Therapeutic Lovenox 90mg BID for ME. * HLD: Holding Lipitor 40mg daily. ID - * Continues to be febrile, tachycardic, BPs good, WBC 10K-->13K * Empiric 2mg Rocephin Q12, + 2g Amicillin Q4H. Day #2, adding on Vancomycin and Acyclovir. * Lyme and Influenza negative. * LP is still an option although we are treating empiric for meningitis. * Follow up urine and blood cultures. Resp - * CTA showed no acute process. * Pt is intubated and sedated on Versed and Precedex. * Will attempt extubation today once patient is appropriately sedated. Renal/ - * Creatinine is 0.87-->0.85 * UA does not suggest infection. * Urine tox pending. GI/Diet - * CT Abdo showed no acute pathology. * LFTs and Lipase WNL. * NG tube in place, consider tube feedings. * IVF of NSS+20meqKCL at 125mls/hr * Protonix 40 mg IV daily for GI prophylaxis Endo - * Blood Sugars >200. * Pt received 15units of Lantus in the ER, will order Glycemic control consult. * HBA1C is pending. * Electrolytes: Na+ 142 K+3.9 * Mg 2.1. * TSH 4.6, assume sick euthyroid state. Heme - * Hgb 13.9-->12, Platelets 262-->210. * Therapeutic AC as above. MSK - * PT and OT once medically stable. Dispo - ICU Social: Son Dimitri [phone], Daughter was present at bedside yesterday. Lines - Right Groin Central Venous Cath, PICC today. Full Code - will discuss code status with next of kin, daughter. Resident Physician Supervision Note: I was present with Dr. Burns during the history and exam. I discussed the case with the resident and agree with the findings and plan as documented in the note. I personally examined this patient, reviewed her clinical and laboratory data, interpreted x-ray and formulated the plan of care. In summary, the patient is a 72 year old female with history of coronary artery disease, CABG, hyperlipidemia, TIA, suboptimally controlled diabetes mellitus who developed fever, chills, became confused and agitated. She was brought to [facility] emergency room on 01/24/2017. Physical examination and CT scan did not reveal any obvious source of infection. CT scan of the chest without PE or infiltrates, mild cardiomegaly, CT of head without any intra-cranial abnormality with mild atrophy only, CT of abdomen and pelvis without obstruction or free air. Patient was transferred critically ill to surgical intensive care unit. Differential diagnosis included urinary tract infection even though urinalysis was not very impressive as it contained 30 WBCs but no leukocyte esterase or nitrites. Consideration was given to diagnosis of meningitis. Patient was started on vancomycin, ceftriaxone, ampicillin and acyclovir. LP was impossible as patient was agitated and combative. She also developed significant leak of troponin's for what Plavix was restarted, aspirin and therapeutic dose of Lovenox were added precluding procedure. Later during the day yesterday patient became more coherent. She was able to answer some questions of mine denying any neck stiffness, head or neck pain or nausea. I will still consider continuing with anti-meningitis antibacterial and antiviral coverage till tomorrow. We'll attempt to extubate patient tomorrow and obtain more history. If there is any significant improvement tomorrow diagnosis of meningitis would be less likely. If clinical suspicion is still unequivocal we will proceed with LP as Lovenox will be stopped after last dose tonight. Meanwhile, I will continue with full mechanical ventilator support for airway protection and hypercapnia. We will start patient on Seroquel 50 mg every 8 hours for hypoactive 30, continue with Hefty sedation with midazolam and fentanyl. From cardiac vascular perspective patient likely developed subendocardial ischemia from sepsis. Cardiology consultation was obtained and patient was discussed with cardiology service. Echocardiography revealed borderline hypokinesis with any obvious wall motion abnormality. We'll continue with aspirin, Plavix, give 1 more dose of Lovenox. We will start patient on metoprolol whenever blood pressure allows it. EKG revealed some ST changes in inferior leads, again no obvious hypokinesis on echocardiography in according area. Diabetes is suboptimally controlled. We'll adjust insulin dosing. I extensively discussed patient's clinical condition and further management with patient's son and daughter at the bedside. We'll obtain PICC line, discontinue femoral central line. I spent totally 45 minutes of critical care time evaluating and managing this patient. Dr. Robert Consults & Procedures Consultants: Legal Job Titles Cardiology - [facility] [place] for elevated Troponins and EKG changes. Procedures: R. Central Line. Will need PICC line. Data Medications: Current Inpatient Medications Medications (Trade) Dose Ordered Sig/Clint Route Start Time Stop Time Status Last Admin Dose Admin Lorazepam 1 mg/ Syringe 1 ml @ 0.5 mls/min Q4H PRN IV 01/24/17 02:00 02/23/17 01:59 Ioversol (Optiray 320) 100 ml UD PRN IV 01/24/17 02:00 01/28/17 01:59 Miscellaneous Information (Consult Glycemic Management Pharmacy) 1 ea DAILY PRN N/A 01/24/17 02:06 02/23/17 02:05 Lorazepam (Ativan Inj) 1 mg Q4H PRN IV 01/24/17 03:00 02/23/17 02:59 01/24/17 14:38 1 MG Vancomycin HCl (Consult) 1 ea UD PRN N/A 01/24/17 04:15 02/23/17 04:14 Potassium Chloride/Sodium Chloride 1,000 ml @ 125 mls/hr Q8H IV 01/24/17 04:15 02/23/17 04:14 01/25/17 02:19 125 MLS/HR Dexmedetomidine HCl 200 mcg/ Sodium Chloride 50 ml @ 0 mls/hr Q0M PRN IV 01/24/17 10:00 01/28/17 09:59 01/25/17 07:38 2.3 MLS/HR Ceftriaxone Sodium 2000 mg/ Dextrose 70 ml @ 140 mls/hr Q12H IV 01/24/17 11:00 02/03/17 10:59 01/24/17 23:41 140 MLS/HR Ampicillin Sodium 2000 mg/Sodium Chloride 108 ml @ 216 mls/hr Q4H IV 01/24/17 12:00 02/03/17 11:59 01/25/17 03:32 216 MLS/HR Insulin Aspart (novoLOG ASPART) SLIDING SCALE G... Q4 SC 01/24/17 16:00 02/23/17 15:59 01/25/17 04:01 1 UNITS Acyclovir Sodium 550 mg/Dextrose 111 ml @ 100 mls/hr Q8H IV 01/24/17 13:00 02/03/17 12:59 01/25/17 04:45 100 MLS/HR Acyclovir Sodium (Consult) 1 ea UD PRN N/A 01/24/17 12:30 02/23/17 12:29 Insulin Glargine (Lantus Solostar Pen) 15 units Q12H SC 01/24/17 16:00 02/23/17 15:59 01/25/17 04:02 15 UNITS Vancomycin HCl 1250 mg/Sodium Chloride 275 ml @ 125 mls/hr Q12H IV 01/25/17 00:00 02/04/17 00:00 01/25/17 00:17 125 MLS/HR Midazolam HCl 250 ml @ 2 mls/hr Q24H PRN IV 01/24/17 18:30 02/23/17 18:29 Clopidogrel Bisulfate (plAVix TAB) 75 mg QAM PO 01/25/17 09:00 02/24/17 08:59 Enoxaparin Sodium (Lovenox Inj) 90 mg Q12H SQ 01/24/17 20:00 02/23/17 19:59 01/24/17 20:31 90 MG Norepinephrine Bitartrate 8 mg/ Dextrose 508 ml @ 0 mls/hr Q0M PRN IV 01/24/17 21:15 02/23/17 21:14 01/24/17 21:30 16.8 MLS/HR Heparin Sodium (Porcine) (Heparin 10 Unit/ ml 5 ml Flush) 5 ml PRN PRN FLUSH 01/25/17 00:15 02/24/17 00:14 Vital Signs: Date Time Temp Pulse Resp B/P (MAP) Pulse Ox O2 Delivery O2 Flow Rate FiO2 01/25/17 07:30 40 01/25/17 06:16 37.4 68 22 88/53 (62) 01/25/17 05:38 40 01/25/17 05:30 37.3 66 18 127/70 (83) 99 01/25/17 05:15 37.2 63 18 122/63 (68) 01/25/17 04:45 37.2 60 18 124/67 (81) 01/25/17 04:31 37.1 60 18 120/66 (89) 99 01/25/17 04:15 37.1 62 18 126/68 (77) 01/25/17 04:00 40 Mechanical Ventilator 01/25/17 04:00 30 01/25/17 04:00 37.0 63 18 126/72 (83) 01/25/17 03:46 37.0 71 20 123/63 (78) 99 01/25/17 03:30 37.0 62 18 124/74 (95) 01/25/17 03:15 37.0 61 18 121/74 (93) 01/25/17 03:01 37.0 61 18 121/68 (83) 99 01/25/17 02:45 37.0 63 18 121/73 (93) 99 01/25/17 02:31 37.0 61 18 121/70 (84) 99 01/25/17 02:20 40 01/25/17 02:00 37.0 66 18 119/68 (81) 98 01/25/17 01:45 36.9 65 21 119/71 (89) 01/25/17 01:30 36.9 62 18 118/70 (88) 01/25/17 01:15 37.0 65 18 116/67 (88) 01/25/17 01:00 37.0 66 18 117/65 (88) 01/25/17 00:45 37.0 69 18 117/75 (90) 100 01/25/17 00:30 37.1 67 18 114/66 (82) 01/25/17 00:15 37.1 66 18 118/67 (81) 01/25/17 00:00 37.1 67 18 117/66 (84) 01/25/17 00:00 37.1 67 18 117/66 (84) 01/25/17 00:00 40 Mechanical Ventilator 01/25/17 00:00 30 01/24/17 23:45 37.1 70 20 106/68 (83) 100 01/24/17 23:31 37.1 64 18 109/65 (90) 100 01/24/17 23:15 37.1 64 18 113/71 (82) 01/24/17 23:00 37.1 66 18 113/71 (84) 01/24/17 22:45 37.0 67 18 117/71 (83) 01/24/17 22:30 40 01/24/17 22:00 37.0 76 0 130/84 (96) 01/24/17 21:30 37.1 65 18 82/51 (55) 01/24/17 21:00 37.3 65 18 75/51 (55) 01/24/17 20:30 37.4 66 18 80/49 (54) 01/24/17 20:00 70 19 94/61 (65) 96 01/24/17 20:00 30 01/24/17 20:00 30 Mechanical Ventilator 01/24/17 19:55 30 01/24/17 18:25 30 01/24/17 16:00 95 BiPAP 30 01/24/17 14:56 82 93 30 01/24/17 12:00 95 Oxymask 6.0 Laboratory Results: Last 24 Hours Test 01/24/17 10:45 01/24/17 11:06 01/24/17 11:52 01/24/17 12:49 Urine Color DK YELLOW Urine Appearance TURBID Urine pH 5.0 Urine Specific [place] > 1.045 Urine Protein 2+ Urine Glucose (UA) 3+ Urine Ketones NEG Urine Occult Blood 3+ Urine Nitrite NEG Urine Bilirubin NEG Urine Urobilinogen NEG Urine Leukocyte Esterase NEG Urine WBC (Auto) 10-30 /hpf Urine RBC (Auto) >30 /hpf Urine Hyaline Casts (Auto) 1-5 /lpf Urine Epithelial Cells (Auto) >30 /lpf Urine Bacteria (Auto) NEG Urine Renal Epithelial Cells /lpf Urine Crystals URIC ACID Urine Pathogenic Casts /lpf Urine Yeast (Auto) Bedside Glucose 200 mg/dl Lactic Acid Level 2.2 mmol/L Troponin I 6.300 ng/ml Thyroid Stimulating Hormone (TSH) 4.630 uIu/ml Blood Gas Sample Site R Radial Bedside Blood Gas pH (LAB) 7.19 Bedside Blood Gas pCO2 (LAB) 66 mmHg Bedside Blood Gas pO2 (LAB) 147 mmHg Bedside Blood Gas HCO3 (LAB) 25 meq/L Bedside Blood Gas Total CO2 27 mEq/l Bedside Blood Gas Base Excess (LAB) -4.0 meq/L Bedside Blood Gas O2 Saturation 98.0 % Dinh Test Pass Oxygen Delivery Device SimpleMask Test 01/24/17 15:45 01/24/17 16:04 01/24/17 18:59 01/24/17 19:47 Bedside Glucose 208 mg/dl Blood Gas Sample Site R Radial Bedside Blood Gas pH (LAB) 7.22 Bedside Blood Gas pCO2 (LAB) 52 mmHg Bedside Blood Gas pO2 (LAB) 70 mmHg Bedside Blood Gas HCO3 (LAB) 21 meq/L Bedside Blood Gas Total CO2 23 mEq/l Bedside Blood Gas Base Excess (LAB) -6.0 meq/L Bedside Blood Gas O2 Saturation 91.0 % Dinh Test Pass Oxygen Delivery Device Ventilator Bedside Oxygen Rate (breaths/min) 16 Blood Gas Minute Ventilation 9.2 Bedside FiO2 30 % Blood Gas Tidal Volume 450 Blood Gas PEEP 6 Troponin I 10.300 ng/ml Test 01/24/17 20:25 01/25/17 00:14 01/25/17 03:58 01/25/17 05:17 Bedside Glucose 244 mg/dl 216 mg/dl 178 mg/dl White Blood Count 13.67 K/uL Red Blood Count 4.15 M/uL Hemoglobin 12.0 g/dL Hematocrit 36.9 % Mean Corpuscular Volume 88.9 fL Mean Corpuscular Hemoglobin 28.9 pg Mean Corpuscular Hemoglobin Concent 32.5 g/dl Platelet Count 210 K/uL Mean Platelet Volume 11.5 fL Neutrophils (%) (Auto) 71.8 % Lymphocytes (%) (Auto) 19.4 % Monocytes (%) (Auto) 7.9 % Eosinophils (%) (Auto) 0.4 % Basophils (%) (Auto) 0.1 % Neutrophils # (Auto) 9.81 K/uL Lymphocytes # (Auto) 2.65 K/uL Monocytes # (Auto) 1.08 K/uL Eosinophils # (Auto) 0.06 K/uL Basophils # (Auto) 0.02 K/uL RDW Standard Deviation 47.0 fL RDW Coefficient of Variation 14.5 % Immature Granulocyte % (Auto) 0.4 % Immature Granulocyte # (Auto) 0.05 K/uL Sodium Level 142 mmol/L Potassium Level 3.9 mmol/L Chloride Level 113 mmol/L Carbon Dioxide Level 23 mmol/L Anion Gap 6.0 mmol/L Blood Urea Nitrogen 16 mg/dl Creatinine 0.85 mg/dl Est Creatinine Clear Calc Drug Dose 68.1 ml/min Estimated GFR () 79.9 Estimated GFR (Non- 68.9 BUN/Creatinine Ratio 18.2 Random Glucose 194 mg/dl Calcium Level 7.3 mg/dl Magnesium Level 2.1 mg/dl Troponin I 12.100 ng/ml Resident Involvement: Resident Care Provided Care Provided: Adult Hospital Medicine
[2017-01-25] MEDS ORDERED: QUETIAPINE FUMARATE 25 MG TAB PO ONE (09:15)
[2017-01-25] MEDS: LANSOPRAZOLE SOLUTAB 30 MG NG SCH (09:39)
[2017-01-25] MEDS: FENTANYL 1250MCG/250ML NSS IV PRN ×2 (09:39→23:54)
[2017-01-25] MEDS: ASPIRIN 81 MG CHEW NG SCH (09:40)
[2017-01-25] MEDS: CEFTRIAXONE SOD INJ 2000 MG in DEXTROSE 5% 50ML IV SCH ×2 (10:37→23:11)
--- NOTE | 2017-01-25 11:14 | Pharmacy Progress Note ---
Glycemic Control Progress Note Date of Service Jan 25, 2017. Scope Glycemic Pharmacist consulted for glycemic control to write orders per [facility] inpatient glycemic control protocol. Objective Accuchecks BSG (last 24hrs): Test 01/24/17 16:04 01/24/17 20:25 01/25/17 00:14 01/25/17 03:58 Bedside Glucose 208 mg/dl (70-90) 244 mg/dl (70-90) 216 mg/dl (70-90) 178 mg/dl (70-90) Test 01/25/17 05:17 Random Glucose 194 mg/dl (70-99) HbA1c: Test 01/25/17 05:17 Recent Pertinent Medications The patient is currently receiving: * Basal insulin: Lantus 15 units every 12 hours * Correctional Insulin: Novolog Correction per scale Q4H Goal Range: Low 120 mg/dL - High 150 mg/dL Correction Factor: 18 mg/dL/unit * Prandial insulin: Per carb ratio of 1 unit per 6 grams CHO consumed Outpatient Anti-Diabetic Meds Oral Agents Basal Insulin Bolus Insulin Assessment & Plan ASSESSMENT: * See progress note from 01/24/17 for more background info, in short: * Pt receiving SQ basal bolus insulin regimen for hyperglycemia secondary to baseline DM (outpatient regimen on hold), stress/infection, pressors, mechanical ventilation * BSGs over the past 24 hours have ranged 200-263 mg/dL * Pt was initiated on wt based/stress of 2 basal bolus regimen, which is now starting to control BSGs * Fasting BSG this AM =143 mg/dL * Continue current regimen and make changes as needed * Of note, trickle feeds may be initiated this afternoon - at trickle I am less concerned for hyperglycemia, but plan will likely need to change depending on how tube feeds progress over the next 24 hours PLAN FOR INPATIENT GLYCEMIC CONTROL: * Oral Agents * Continue to hold outpatient oral diabetes medications. * Basal insulin * Lantus 15-22 units SQ BID * Bolus insulin * NovoLog per scale Q4H * Goal Range: Low 120 mg/dL - High 150 mg/dL * Correction Factor: 18 mg/dL/unit * Nutritional / Prandial insulin per carb ratio of 1 unit per 6 grams CHO consumed * If BSGs climb at any point >220 mg/dL - initiate insulin drip per moderate stress protocol and overlap with Lantus * Please note that the plan above was derived based on current level of insulin resistance and hospital stress. These recommendations are appropriate for inpatient admission only. Plan of care upon discharge will need to be reassessed to avoid potential outpatient hypo/hyperglycemia. Thank you.
[2017-01-25 11:22] LABS: ESTIMATED AVERAGE GLUCOSE 220 mg/dl; HA1C FLAG Normal (Normal)
--- NOTE | 2017-01-25 11:31 | ECHOCARDIOGRAM REPORT ---
*NOTICE TO RECEIVING REPUBLICAN AGENCY This information is strictly Confidential and protected under [place] law. [place] law prohibits you from making any further disclosure of this information unless further disclosure is expressly permitted by the written consent of the person to whom it pertains or is authorized by law. A general authorization for the release of medical or other information is not sufficient for this purpose. Hospital accepts no responsibility if the information is made available to any other person, INCLUDING THE PATIENT. Interpretation Summary * Name: AGUSTO ARCHIBALD Study Date: 01/24/2017 02:05 PM BP: 88/53 mmHg * Patient Location: .MSICU\S\E106\S\1 HR: 68 * : 1945 (M/d/yyy) Gender: Female Height: 64 in * Age: 72 yrs Ethnicity: CA Weight: 199 lb * Ordering Physician: Maria De Jesus Wagner * Referring Physician: UNKNOWN * Performed By: Jemma Galeano RDCS * * Reason For Study: ELEVATED TROPONIN * BSA: 2.0 m2 * -- Conclusions -- * Left ventricular systolic function is mildly reduced to borderline normal. * Borderline to mild global hypokinesis. * Ejection Fraction = 45-50%. * There is mild concentric left ventricular hypertrophy. * Diastolic dysfunction, Grade II (pseudonormalization pattern). * There is mild to moderate mitral regurgitation. * There is mild tricuspid regurgitation. Procedure Details * A contrast injection of Definity was performed to improve assessment of LV function. * Contrast was injected into an intravenous site in the right arm. * One vial of Definity ultrasound contrast was diluted in normal saline to a total volume of 10 ml. A total of '2' ml of solution was administered during imaging. * Lot # [id number] of Definity utilized for procedure. * Expiration date JAN 23. * The attending nurse who injected the contrast agent was GUNNAR CHANEY. Left Ventricle * The left ventricle is normal in size. * There is mild concentric left ventricular hypertrophy. * Ejection Fraction = 45-50%. * Left ventricular systolic function is mildly reduced to borderline normal. * Borderline to mild global hypokinesis. * No regional wall motion abnormalities noted. Right Ventricle * The right ventricle is grossly normal size. * The right ventricular systolic function is normal as assessed by tricuspid annular plane systolic excursion (TAPSE) (normal >1.5 cm). Atria * The left atrium is mildly dilated. * The right atrium is mildly dilated. * There is no evidence of atrial septal defect, but resolution does not allow assessment for a patent foramen ovale. Mitral Valve * The mitral valve is grossly normal. * There is no mitral valve stenosis. * There is mild to moderate mitral regurgitation. Tricuspid Valve * The tricuspid valve is not well visualized, but is grossly normal. * There is mild tricuspid regurgitation. Aortic Valve * Aortic valve sclerosis bordering on mild stenosis. * There is no significant aortic regurgitation. Pulmonic Valve * The pulmonary valve is not well seen, but the Doppler examination is normal without significant regurgitation or stenosis. Great Vessels * The aortic root is normal size. * The pulmonary is not well visualized. Pericardium/Pleural * There is no pericardial effusion. Great Vessels * Dilated inferior vena cava with reduced collapsability with sniff indicates an elevated right atrial pressure of 15 mmHg Left Ventricular Diastolic Function * Diastolic dysfunction, Grade II (pseudonormalization pattern). MMode 2D Measurements and Calculations IVSd 1.4 cm IVSs 1.8 cm LVIDd 5.2 cm LVIDs 3.9 cm LVPWd 1.1 cm LVPWs 1.9 cm IVS/LVPW 1.2 FS 24.6 % EDV(Teich) 129.9 ml ESV(Teich) 67.0 ml EF(Teich) 48.4 % EDV(cubed) 141.2 ml ESV(cubed) 60.6 ml EF(cubed) 57.1 % % IVS thick 31.0 % % LVPW thick 69.3 % LV mass(C)d 260.3 grams LV mass(C)dI 133.4 grams/m\S\2 LV mass(C)s 314.4 grams LV mass(C)sI 161.1 grams/m\S\2 SV(Teich) 62.9 ml SI(Teich) 32.2 ml/m\S\2 SV(cubed) 80.6 ml SI(cubed) 41.3 ml/m\S\2 Ao root diam 3.9 cm Ao root area 11.9 cm\S\2 LA dimension 5.2 cm LA/Ao 1.3 LVAd ap4 35.7 cm\S\2 LVLd ap4 8.7 cm EDV(MOD-sp4) 117.3 ml EDV(sp4-el) 124.2 ml LVAs ap4 23.7 cm\S\2 LVLs ap4 7.0 cm ESV(MOD-sp4) 64.3 ml ESV(sp4-el) 68.4 ml EF(MOD-sp4) 45.2 % EF(sp4-el) 44.9 % SV(MOD-sp4) 53.0 ml SI(MOD-sp4) 27.2 ml/m\S\2 SV(sp4-el) 55.8 ml SI(sp4-el) 28.6 ml/m\S\2 Doppler Measurements and Calculations MV E max ben 113.8 cm/sec MV A max ben 69.0 cm/sec MV E/A 1.6 MV dec time 0.22 sec Ao V2 max 193.4 cm/sec Ao max PG 15.0 mmHg Ao max PG (full) 13.5 mmHg Ao V2 mean 132.5 cm/sec Ao mean PG 8.0 mmHg Ao mean PG (full) 7.1 mmHg Ao V2 VTI 39.3 cm LV V1 max PG 1.5 mmHg LV V1 mean PG 0.93 mmHg LV V1 max 61.1 cm/sec LV V1 mean 45.7 cm/sec LV V1 VTI 13.8 cm SV(Ao) 466.5 ml SI(Ao) 239.0 ml/m\S\2 TR max ben 215.1 cm/sec
[2017-01-25] MEDS: QUETIAPINE FUMARATE 25 MG TAB PO SCH ×3 (11:46→23:58)
--- NOTE | 2017-01-25 12:21 | CARDIOLOGY CONSULTATION ---
DATE OF CONSULTATION: 01/25/2017 PERTINENT HISTORY: Mrs. Gr is a 72-year-old white female admitted yesterday after being transferred to our institution from [facility]. The patient was admitted with sepsis and respiratory failure. This consultation was ordered as her troponin I level was elevated and she had an abnormal EKG, suggesting inferior wall injury. Her history is obtained from chart review and discussion with her son at the bedside. Apparently, the patient became acutely ill and was taken to the Emergency Room by her . According to the son, the patient had not experienced premorbid chest discomfort. She does have a history of a 3-vessel bypass, which was performed exactly 3 years ago, I doubt in [place]. The patient did require intravenous norepinephrine for blood pressure support during her initial 24 hours of hospitalization. She is currently off pressor support. Her initial troponin I level is undetectable in [facility]. It was 1.05 on presentation here and peaked at 12.1 this morning. Review of her EKGs noted what appears to be an inferior injury current on her EKG done this morning. Her initial EKG in our Emergency Room suggested inferior wall injury; however, baseline artifact makes it difficult to determine. This is also present on the EKG done at [facility]'s Emergency Room, again suggesting inferior injury, but limited by her baseline artifact. Currently, the patient is sedated and ventilated in the intensive care unit. Her son is at the bedside. PAST MEDICAL HISTORY: 1. Coronary artery disease. 2. Coronary artery bypass surgery -- 3 vessels - January 2014. 3. Hypertension. 4. Hypercholesterolemia. 5. Diabetes mellitus. 6. GERD. 7. Depression/anxiety. 8. Neuropathy. MEDICATIONS: 1. Vancomycin 1.25 g q. 12 hours. 2. Lovenox 90 mg subQ q. 12 hours. 3. Plavix 75 mg per day. 4. Aspirin 81 mg per day. 5. Seroquel 50 mg q. 6 hours. 6. Prevacid 30 mg daily. 7. Sliding scale insulin. 8. Acyclovir 550 mg IV q. 8 hours. 9. Ampicillin 2 grams IV q. 4 hours. 10. Ceftriaxone 2 grams IV q. 2 hours ALLERGIES: None. SOCIAL HISTORY: The patient is and lives with her . Does not use tobacco or alcohol. FAMILY HISTORY: Unobtainable. REVIEW OF SYSTEMS: Unobtainable. PHYSICAL EXAMINATION: GENERAL: This is an obese white female, lying supine in bed, ventilated and sedated. HEENT: Notes an endotracheal tube in place. NECK: Supple. No obvious bruits. Jugular venous pressure cannot be assessed. CARDIOVASCULAR: Reveals a regular rhythm with distant heart sounds. LUNGS: Note coarse breath sounds throughout. ABDOMEN: Obese and soft. EXTREMITIES: Reveal intact radial artery pulses bilaterally. Trace pretibial edema is noted. LABORATORY DATA: CBC notes a hemoglobin of 12.0, hematocrit 36.9, white count 13.6, and platelet count 210,000. Electrolytes note a sodium of 142, potassium 3.9, chloride 130, bicarb 23, BUN 16, creatinine 0.85, and glucose 194. Troponin I level at [facility] was undetectable. Troponin I levels here are 1.05, 6.3, 10.3, and 12.1. Initial CK is 95 with an MB fraction of 6.8. Chest x-ray notes cardiomegaly. Head CT shows no acute intracranial abnormality. There is mild atrophy. CT of the chest noted no evidence of pulmonary emboli. Abdominal CT noted no evidence of bowel obstruction or free air. EKG done in [facility] notes sinus rhythm and a nonspecific ST and T-wave abnormality. There may be an inferior injury current, which is minor. Initial EKG here notes sinus rhythm with an ST-T wave abnormality in the anterior leads. There may be inferior injury current and baseline artifact that makes it difficult to determine definitely. EKG yesterday at 19:21 noted sinus rhythm, an inferior injury pattern, and anterolateral ST and T-wave changes suggesting ischemia. Echocardiogram done today notes a borderline to mildly depressed left ventricular function with an ejection fraction of 40%-50%. There is global hypokinesis and no focal wall motion abnormality. There is mild to moderate mitral regurgitation. beauty sales advisor notes sinus rhythm. IMPRESSION: Mrs. Gr was admitted with sepsis and respiratory failure. She now has an elevated troponin I level and what appears to be inferior injury pattern on her EKG. However, I feel this is likely present on the initial tracing done in [facility]. Furthermore, her echocardiogram notes borderline to mild left ventricular dysfunction with global hypokinesis and no distinct wall motion abnormality. I suspect that her elevated troponin is related to her critical illness in the face of left ventricular hypertrophy and possible subendocardial ischemia. PLAN: 1. Continue critical supportive care as you are. 2. Would initiate intravenous beta shannon if blood pressure allows. 3. Further recommendations depending on her clinical course.
[2017-01-25] MEDS ORDERED: NURSING DECISION MEDICATION ORDER SCH (12:45)
--- NOTE | 2017-01-25 13:09 | Procedure Note ---
Procedure Note Procedure Date Jan 24, 2017. Procedure Description Procedure Name: 1. Central line placement. Indication: Sepsis, IV access need for antibiotic and sedative administration. Sedation: Ketamine 200 mg IM 1, Versed 2 mg IM 1. Patient was prepped and draped in the usual sterile manner including 5 barriers and chlorhexidine skin prep. After appropriate sedation was obtained portable ultrasound was used to visualize right groin vessels. Needle was inserted without any difficulty into the right femoral vein. Seldinger's technique was used, triple lumen antibiotic-coated catheter was inserted over the guidewire without any difficulty. Patient tolerated procedure well without any complications. I performed the entire procedure myself. 2. Intubation. Indication: Acute respiratory failure secondary to hypercapnia. Sedation: Ketamine 200 mg IV 1, Versed 2 mg IV 1, succinylcholine 100 mg IV 1. Patient was bagged with 100% O2. After appropriate sedation was obtained Mac number feeling the scope was used to visualize vocal cords. Endotracheal tube # 7.5 was inserted without any difficulty. There was good bilateral chest wall expansion, positive CO2 detector test. Patient tolerated procedure well. Chest x-ray revealed endotracheal tube just above kilo. It was pulled back by 2 cm. I performed the entire procedure myself. Both procedures were performed on 01/24/2017. Procedure time out: side/site verified, patient ID confirmed, correct procedure Consent obtained: written Performed by: attending Indications: therapeutic Contraindications: none Complications: none Patient tolerated procedure: well Post-procedure vital signs: reviewed and stable
[2017-01-25] MEDS ORDERED: MICONAZOLE NITRATE POWDER 43 GM EXT PRN (13:15)
[2017-01-25] MEDS ORDERED: PEPTAMEN INTENSE VHP 1000ML BAG OG PRN (14:15)
[2017-01-25 15:16] LABS: C-REACTIVE PROTEIN 4.43 mg/dl (0-0.29)
--- NOTE | 2017-01-25 18:54 | Family Medicine Progress Note ---
Progress Note Date of Service Jan 25, 2017. Subjective Pt evaluation today including: physical exam, chart review, lab review Pain: unable to assess pt sedated PO Intake: on NG tube feeds Voiding: wells catheter in place This PM pt was sedated and on mechanical ventilator. History was obtained from records and ICU team. Constitutional: No fever Psychiatric: + problem reported (delirius ) Medications Current Inpatient Medications Medications (Trade) Dose Ordered Sig/Clint Route Start Time Stop Time Status Last Admin Dose Admin Lorazepam 1 mg/ Syringe 1 ml @ 0.5 mls/min Q4H PRN IV 01/24/17 02:00 02/23/17 01:59 Ioversol (Optiray 320) 100 ml UD PRN IV 01/24/17 02:00 01/28/17 01:59 Miscellaneous Information (Consult Glycemic Management Pharmacy) 1 ea DAILY PRN N/A 01/24/17 02:06 02/23/17 02:05 Lorazepam (Ativan Inj) 1 mg Q4H PRN IV 01/24/17 03:00 02/23/17 02:59 01/24/17 14:38 1 MG Vancomycin HCl (Consult) 1 ea UD PRN N/A 01/24/17 04:15 02/23/17 04:14 Potassium Chloride/Sodium Chloride 1,000 ml @ 125 mls/hr Q8H IV 01/24/17 04:15 02/23/17 04:14 01/25/17 18:00 125 MLS/HR Dexmedetomidine HCl 200 mcg/ Sodium Chloride 50 ml @ 0 mls/hr Q0M PRN IV 01/24/17 10:00 01/28/17 09:59 01/25/17 07:38 2.3 MLS/HR Ceftriaxone Sodium 2000 mg/ Dextrose 70 ml @ 140 mls/hr Q12H IV 01/24/17 11:00 02/03/17 10:59 01/25/17 10:37 140 MLS/HR Ampicillin Sodium 2000 mg/Sodium Chloride 108 ml @ 216 mls/hr Q4H IV 01/24/17 12:00 02/03/17 11:59 01/25/17 15:58 216 MLS/HR Insulin Aspart (novoLOG ASPART) SLIDING SCALE G... Q4 SC 01/24/17 16:00 02/23/17 15:59 10/20/17 16:19 2 UNITS Acyclovir Sodium 550 mg/Dextrose 111 ml @ 100 mls/hr Q8H IV 01/24/17 13:00 02/03/17 12:59 01/25/17 12:16 100 MLS/HR Acyclovir Sodium (Consult) 1 ea UD PRN N/A 01/24/17 12:30 02/23/17 12:29 Vancomycin HCl 1250 mg/Sodium Chloride 275 ml @ 125 mls/hr Q12H IV 01/25/17 00:00 02/04/17 00:00 01/25/17 11:36 125 MLS/HR Midazolam HCl 250 ml @ 2 mls/hr Q24H PRN IV 01/24/17 18:30 02/23/17 18:29 Clopidogrel Bisulfate (plAVix TAB) 75 mg QAM PO 01/25/17 09:00 02/24/17 08:59 01/25/17 08:44 75 MG Enoxaparin Sodium (Lovenox Inj) 90 mg Q12H SQ 01/24/17 20:00 01/25/17 23:59 01/25/17 08:44 90 MG Norepinephrine Bitartrate 8 mg/ Dextrose 508 ml @ 0 mls/hr Q0M PRN IV 01/24/17 21:15 02/23/17 21:14 01/24/17 21:30 16.8 MLS/HR Heparin Sodium (Porcine) (Heparin 10 Unit/ ml 5 ml Flush) 5 ml PRN PRN FLUSH 01/25/17 00:15 02/24/17 00:14 Quetiapine Fumarate (seroQUEL TAB) 50 mg Q6 PO 01/25/17 12:00 02/24/17 11:59 01/25/17 17:46 50 MG Lansoprazole (Prevacid Solutab) 30 mg DAILY NG 01/25/17 09:06 02/24/17 09:05 01/25/17 09:39 30 MG Fentanyl Citrate 250 ml @ 0 mls/hr Q0M PRN IV 01/25/17 09:15 02/08/17 09:14 01/25/17 09:39 20 MLS/HR Aspirin (Aspirin Chew) 81 mg QAM NG 01/25/17 09:30 02/24/17 09:29 01/25/17 09:40 81 MG Miconazole Nitrate (Desenex Powder) 1 appln BID PRN EXT 01/25/17 13:15 02/24/17 13:14 Insulin Glargine (Lantus Solostar Pen) SEE PROTOCOL Q12 SC 01/25/17 18:00 02/24/17 17:59 01/25/17 17:49 22 UNITS Enteral Nutritional Formula (Peptamen Intense VHP) 1,000 ml UD PRN OG 01/25/17 14:15 02/24/17 14:14 01/25/17 15:58 1,000 ML Objective Vital Signs Date Time Temp Pulse Resp B/P (MAP) Pulse Ox O2 Delivery O2 Flow Rate FiO2 01/25/17 18:00 37.3 59 18 99/56 (71) 100 01/25/17 17:16 40 01/25/17 17:00 37.2 60 18 103/54 (71) 100 01/25/17 16:00 37.1 61 18 106/58 (67) 100 01/25/17 16:00 Mechanical Ventilator 40 01/25/17 16:00 40 01/25/17 15:00 37.1 65 18 108/60 (82) 100 01/25/17 14:45 40 01/25/17 14:00 37.2 61 18 97/56 (69) 99 01/25/17 13:00 37.3 61 18 99/55 (69) 98 01/25/17 12:31 37.3 62 18 100/57 (71) 100 01/25/17 12:00 37.4 61 18 99/55 (60) 01/25/17 12:00 Mechanical Ventilator 40 01/25/17 12:00 40 01/25/17 11:35 40 01/25/17 11:30 37.5 61 18 100/55 (60) 98 01/25/17 11:00 37.6 59 18 99/56 (61) 98 01/25/17 10:30 37.7 60 18 99/56 (61) 99 01/25/17 10:00 37.7 60 18 100/57 (71) 01/25/17 09:30 37.4 62 18 113/61 (84) 100 01/25/17 09:00 37.8 62 18 101/57 (71) 01/25/17 08:48 37.9 64 18 118/68 (86) 100 01/25/17 08:30 37.9 65 18 131/70 (93) 99 01/25/17 08:00 37.8 65 18 112/61 (86) 01/25/17 08:00 Mechanical Ventilator 40 01/25/17 08:00 40 01/25/17 08:00 Mechanical Ventilator 40 01/25/17 07:30 40 01/25/17 07:30 37.7 69 18 121/61 (70) 100 01/25/17 07:15 37.7 66 21 121/60 (74) 01/25/17 07:02 37.6 92 31 126/66 (102) 97 01/25/17 06:16 37.4 68 22 88/53 (62) 01/25/17 05:38 40 01/25/17 05:30 37.3 66 18 127/70 (83) 99 01/25/17 05:15 37.2 63 18 122/63 (68) 01/25/17 04:45 37.2 60 18 124/67 (81) 01/25/17 04:31 37.1 60 18 120/66 (89) 99 01/25/17 04:15 37.1 62 18 126/68 (77) 01/25/17 04:00 40 Mechanical Ventilator 01/25/17 04:00 30 01/25/17 04:00 37.0 63 18 126/72 (83) 01/25/17 03:46 37.0 71 20 123/63 (78) 99 01/25/17 03:30 37.0 62 18 124/74 (95) 01/25/17 03:15 37.0 61 18 121/74 (93) 01/25/17 03:01 37.0 61 18 121/68 (83) 99 01/25/17 02:45 37.0 63 18 121/73 (93) 99 01/25/17 02:31 37.0 61 18 121/70 (84) 99 01/25/17 02:20 40 01/25/17 02:00 37.0 66 18 119/68 (81) 98 01/25/17 01:45 36.9 65 21 119/71 (89) 01/25/17 01:30 36.9 62 18 118/70 (88) 01/25/17 01:15 37.0 65 18 116/67 (88) 01/25/17 01:00 37.0 66 18 117/65 (88) 01/25/17 00:45 37.0 69 18 117/75 (90) 100 01/25/17 00:30 37.1 67 18 114/66 (82) 01/25/17 00:15 37.1 66 18 118/67 (81) 01/25/17 00:00 37.1 67 18 117/66 (84) 01/25/17 00:00 37.1 67 18 117/66 (84) 01/25/17 00:00 40 Mechanical Ventilator 01/25/17 00:00 30 01/24/17 23:45 37.1 70 20 106/68 (83) 100 01/24/17 23:31 37.1 64 18 109/65 (90) 100 01/24/17 23:15 37.1 64 18 113/71 (82) 01/24/17 23:00 37.1 66 18 113/71 (84) 01/24/17 22:45 37.0 67 18 117/71 (83) 01/24/17 22:30 40 01/24/17 22:00 37.0 76 0 130/84 (96) 01/24/17 21:30 37.1 65 18 82/51 (55) 01/24/17 21:00 37.3 65 18 75/51 (55) 01/24/17 20:30 37.4 66 18 80/49 (54) 01/24/17 20:00 70 19 94/61 (65) 96 01/24/17 20:00 30 01/24/17 20:00 30 Mechanical Ventilator 01/24/17 19:55 30 Physical Exam General Appearance: + mild distress Respiratory/Chest: lungs clear, normal breath sounds Cardiovascular: regular rate, rhythm, no edema, no murmur Abdomen: normal bowel sounds, non tender (did not react to abdominal palpation - pt sedated), soft Extremities: no pedal edema, + pertinent finding (central line in R groin) Neurologic/Psychiatric: + pertinent finding (disoriented without sedation) Skin: warm/dry Notes: wells in place with dark red urine Laboratory Results 01/25/17 05:17 Red Blood Count 4.15, Mean Corpuscular Volume 88.9, Mean Corpuscular Hemoglobin 28.9, Mean Corpuscular Hemoglobin Concent 32.5, Mean Platelet Volume 11.5, Neutrophils (%) (Auto) 71.8, Lymphocytes (%) (Auto) 19.4, Monocytes (%) (Auto) 7.9, Eosinophils (%) (Auto) 0.4, Basophils (%) (Auto) 0.1, Neutrophils # (Auto) 9.81, Lymphocytes # (Auto) 2.65, Monocytes # (Auto) 1.08, Eosinophils # (Auto) 0.06, Basophils # (Auto) 0.02 01/25/17 05:17 Test 01/24/17 18:59 01/25/17 05:17 01/25/17 08:36 01/25/17 13:48 Blood Gas Sample Site R Radial Bedside Blood Gas pH (LAB) 7.22 (7.35-7.45) Bedside Blood Gas pCO2 (LAB) 52 mmHg (35-46) Bedside Blood Gas pO2 (LAB) 70 mmHg (80-95) Bedside Blood Gas HCO3 (LAB) 21 meq/L (19-24) Bedside Blood Gas Total CO2 23 mEq/l (24-31) Bedside Blood Gas Base Excess (LAB) -6.0 meq/L (-9-1.8) Bedside Blood Gas O2 Saturation 91.0 % (90-95) Dinh Test Pass Oxygen Delivery Device Ventilator Bedside Oxygen Rate (breaths/min) 16 Blood Gas Minute Ventilation 9.2 Bedside FiO2 30 % Blood Gas Tidal Volume 450 Blood Gas PEEP 6 White Blood Count 13.67 K/uL (4.8-10.8) Red Blood Count 4.15 M/uL (4.2-5.4) Hemoglobin 12.0 g/dL (12.0-16.0) Hematocrit 36.9 % (37-47) Mean Corpuscular Volume 88.9 fL (80-100) Mean Corpuscular Hemoglobin 28.9 pg (25-34) Mean Corpuscular Hemoglobin Concent 32.5 g/dl (32-36) Platelet Count 210 K/uL (130-400) Mean Platelet Volume 11.5 fL (7.4-10.4) Neutrophils (%) (Auto) 71.8 % Lymphocytes (%) (Auto) 19.4 % Monocytes (%) (Auto) 7.9 % Eosinophils (%) (Auto) 0.4 % Basophils (%) (Auto) 0.1 % Neutrophils # (Auto) 9.81 K/uL (1.4-6.5) Lymphocytes # (Auto) 2.65 K/uL (1.2-3.4) Monocytes # (Auto) 1.08 K/uL (0.11-0.59) Eosinophils # (Auto) 0.06 K/uL (0-0.5) Basophils # (Auto) 0.02 K/uL (0-0.2) RDW Standard Deviation 47.0 fL (36.4-46.3) RDW Coefficient of Variation 14.5 % (11.5-14.5) Immature Granulocyte % (Auto) 0.4 % Immature Granulocyte # (Auto) 0.05 K/uL (0.00-0.02) Anion Gap 6.0 mmol/L (3-11) Est Creatinine Clear Calc Drug Dose 68.1 ml/min Estimated GFR () 79.9 Estimated GFR (Non- 68.9 BUN/Creatinine Ratio 18.2 (10-20) Estimated Average Glucose 220 mg/dl Hemoglobin A1c 9.3 % (4.5-5.6) Calcium Level 7.3 mg/dl (8.5-10.1) Magnesium Level 2.1 mg/dl (1.8-2.4) Bedside Glucose (other) 143 mg/dl (70-99) Troponin I 9.190 ng/ml (0-0.045) C-Reactive Protein 4.43 mg/dl (0-0.29) Procalcitonin < 0.05 ng/ml (0-0.5) Test 01/25/17 15:59 Bedside Glucose 180 mg/dl (70-90) Assessment and Plan 72y/oF with hx of CAD, CABG, TIA 4 years ago, DM, HLD with sepsis of unknown etiology likely urosepsis vs. meningitis and metabolic encephalopathy. Intubated on vent with FiO2 of 40, occasionally hypotensive on levophed, sedated with precedex and versed, troponin downtrending - on ASA, plavix and lovenox, ABG wnl. Acute respiratory failure - hypercarbic - pCO2 55 - Initially on bipap. Now on mechanical ventilation with FiO2 of 40 - ? underlying OHS Sepsis of an unknown source - ICU admission - CTA - no PE or consolidation, mild cardiomegaly - CT head (given agitation/AMS), abdomen and pelvis - no acute intracranial bleed or pathology, inflammatory changes, bowel obstruction or free air - Lipase and LFT wnl - Lyme/ Influenza neg - CRP 4.4 on 01/25 - Empirically covering with - vanc, ceftriaxone, ampicillin and acyclovir day 2 - NG tube feeds - blood cultures - NGTD - UCx - NGTD - repeat procalcitonin <0.05 Stress Ischemia vs. [place] - hx of CAD/CABG - elevated troponin 12. Now downtrending to 9 - EKG with non-specific T wave changes - ECHO: EF = 45-50%, LV systolic function mildly reduced, mild global hypokinesis, mild concentric LVH, diastolic dys grade II, mild-mod MV regurg, mild tricuspid regurg - cardiology consulted - Started on Plavix, ASA and Lovenox 90mg BID for [place] - Initiate BB when BP allows Metabolic encephalopathy - Likely due to urosepsis vs. meningitis (cannot rule out as too agitated for LP ), medication, respiratory failure - Intubated and on mechanical ventilation to help recover - Utox pending Agitation - Sedated with haldol, midazolam, and precedex drip DMII - Glipizide held - Insulin ISS with BSG AC/ HS - glycemic control consult HTN /CAD - Atorvastatin 40 mg held - Lasix 20 mg held Depression/ anxiety - Citalopram 20 mg held - alprazolam 0.5 mg daily held Neuropathy - Gabapentin 100 mg bid held - Hydrocodone- acet 10-325 mg held GERD - Famotidine 40 mg held - Protonix 40 mg IV daily for GI prophylaxis DVT Prophylaxis - SCD Resident Involvement: Resident Care Provided Care Provided: Adult Hospital Medicine Reviewed: Pt Seen/Exam by Me History intubated now. gets agitated on waking up. on sedation. has one on one at bedside Constitutional: denies: fever General Appearance: other (on vent. restless on waking up) Respiratory: lungs clear (anteriorly), other (on vent) Cardiovascular: regular rate, rhythm Gastrointestinal: normal bowel sounds, soft Neurologic/Psychiatric: other (sedated) Skin Characteristics: warm/dry Assessment/Plan Resident Physician Supervision Note: I independently interviewed and examined the patient and verified the kruger history and physical, reviewed labs and image studies, discussed the case with the resident Dr. Fatima and agree with the findings and care plan.
[2017-01-26] VITALS (42 sets, daily range): BP systolic 94–164; BP diastolic 50–129; PULSE 56–141; TEMP 36.9–37.6; O2SAT 97–100
[2017-01-26] MEDS: INSULIN ASPART 100 UNITS/ML 3 ML PEN SC SCH ×6 (00:02→20:00)
[2017-01-26] MEDS: NSS + 20MEQ KCL 1000ML 1,000 ML IV SCH (02:03)
[2017-01-26] MEDS: MIDAZOLAM 125MG/250ML D5W 250 ML IV PRN (02:04)
[2017-01-26] MEDS: AMPICILLIN IV 2,000 MG in SODIUM CHLOR 0.9% AD-VAN 100ML 100 ML IV SCH ×4 (03:26→16:22)
[2017-01-26] MEDS: ACYCLOVIR SOD INJ 550 MG in DEXTROSE 5% 100ML 100 ML IV SCH ×2 (05:31→12:49)
[2017-01-26] MEDS: QUETIAPINE FUMARATE 25 MG TAB PO SCH (06:12)
[2017-01-26 06:34] LABS: BASO % 0.2 %; BASO ABS # 0.02 K/uL (0-0.2); COMPLETE YES; EOS % 2.2 %; HEMATOCRIT 35.5 % (37-47); IG% 0.4 %; LYMPH % 16.6 %; LYMPH ABS # 1.81 K/uL (1.2-3.4); MEAN CORPUSCULAR HEMOGLOBIN 28.3 pg (25-34); MEAN CORPUSCULAR HGB CONC 31.8 g/dl (32-36); MEAN PLATELET VOLUME 11.8 fL (7.4-10.4); MONO % 8.8 %; NEUT % 71.8 %; PLATELET COUNT 176 K/uL (130-400); RED BLOOD COUNT 3.99 M/uL (4.2-5.4); WHITE BLOOD COUNT 10.91 K/uL (4.8-10.8)
[2017-01-26] MEDS ORDERED: METOPROLOL TARTRATE 1 MG/ML VIAL ONE (07:17)
[2017-01-26 07:21] LABS: BUN/CREATININE RATIO 22.4 (10-20); CALCIUM 7.6 mg/dl (8.5-10.1); CREATININE 0.65 mg/dl (0.60-1.20); MAGNESIUM 2.1 mg/dl (1.8-2.4); POTASSIUM 4.1 mmol/L (3.5-5.1)
[2017-01-26] MEDS ORDERED: NURSING VERBAL MED ORDER ONE ×2 (07:45→17:30)
[2017-01-26] MEDS: ASPIRIN 81 MG CHEW NG SCH (08:42)
[2017-01-26] MEDS: LANSOPRAZOLE SOLUTAB 30 MG NG SCH (08:42)
[2017-01-26] MEDS: CLOPIDOGREL BISULFATE 75 MG TAB PO SCH (08:43)
[2017-01-26] MEDS: INSULIN GLARGINE SOLOSTAR 100 UNITS/ML 3 ML PEN SC SCH ×2 (08:45→20:32)
[2017-01-26] MEDS ORDERED: ASPIRIN 81 MG ECTAB PO SCH (09:00)
--- NOTE | 2017-01-26 09:57 | Critical Care Progress Note ---
Critical Care Progress Note Date of Service Jan 26, 2017. Attending Dr. Yesica Miller I personally examined this patient, reviewed her clinical and laboratory data, interpreted x-ray and formulated the plan of care. In summary, the patient is a 72 year old female with history of coronary artery disease, CABG, hyperlipidemia, TIA, suboptimally controlled diabetes mellitus who developed fever, chills, became confused and agitated few days prior to admission. She was brought to [facility] emergency room on 01/24/2017. Physical examination and CT scan did not reveal any obvious source of infection. CT scan of the chest without PE or infiltrates, mild cardiomegaly, CT of head without any intra-cranial abnormality with mild atrophy only, CT of abdomen and pelvis without obstruction or free air. Patient was transferred critically ill to surgical intensive care unit. Uneventful night. Patient gets agitated off sedation. Objective General Appearance: mild distress, sedated, intubated. Eyes: PERRLA, EOMI. Respiratory: breath sounds normal, clear to auscultation, clear to percussion, no respiratory distress, no tenderness, accessory muscle use CV: normal S1S2, no M/G/R, other (tachycardic) Abdomen: non tender, normal bowel sounds, no rebound Genitourinary - Female: wells in place. Back: normal inspection, no midline tenderness, no CVA tenderness Upper Extremities: no edema Lower Extremities: no edema, R Groin Central line in place. Pulses: dorsalis pedis (R) (2+), dorsalis pedis (L) (2+) Neuro: Sedated. Off sedation, patient gets agitated, moves all extremities. No appreciable weakness. Pupils were equal, round and reactive to light. Face was symmetric. Psychiatric: Off sedation patient is agitated Current SOFA Score SOFA Score Response (Comments) Value Platelets (x10) > 150 0 Bilirubin (mg/dL) < 1.2 0 [place] Coma Score 13 - 14 1 Level of Hypotension No Hypotension 0 Creatinine (mg/dL) < 1.2 0 Total 1 Assessment & Plan 1. Sepsis. Differential diagnosis included urinary tract infection even though urinalysis was not very impressive as it contained 30 WBCs but no leukocyte esterase or nitrites. No other obvious source of infection based on physical examination and CT scan of the head, abdomen, chest and pelvis. Diagnosis of meningitis was considered as patient presented with severe confusion and combativeness even though she was denying any headaches or neck stiffness during short episodes of lucidity. LP was postponed until this morning as patient has been treated with aspirin, Plavix and therapeutic dose of Lovenox for suspected acute coronary syndrome. LP 2. Coronary artery disease, history of CABG 3 years ago, non-STEMI, leak of enzymes likely from demand ischemia in the setting of sepsis, marginal hypotension. We'll continue with Plavix, discontinue aspirin and Lovenox, start patient on metoprolol as her blood pressure is more stable. New atrial fibrillation converted again back to normal sinus rhythm. Echocardiography revealed mild left ventricular hypertrophy, borderline global hypokinesia and no wall motion abnormality. 3. Acute respiratory failure for what will continue with full mechanical ventilator support. Expect extubation tomorrow. 4. Renal function is adequate. Fluid balance is positive for 12.5 L since admission. We will discontinue IV fluids, initiate diuresis. 5. Hyperactive delirium. Currently patient is heavily sedated with fentanyl and midazolam. We will increase Seroquel to 100 mg every 8 hours in preparation for extubation. 6. GI: We will continue with tube feeds. 7. Diabetes mellitus, hyperglycemia on Lantus and insulin sliding scale. 8. Start heparin subcutaneous for DVT prophylaxis in addition to SCDs. I updated patient's son and daughter about patient's clinical condition and further clinical management. I spent totally 45 minutes of critical care time evaluating and managing this patient. This is exclusive of lumbar puncture procedure. [place] Score Date Score Was Generated: Jan 26, 2017 Consults & Procedures Consultants: Training And Development Coordinator Cardiology [place] [facility] [place] elevated Troponins and EKG changes. Procedures: R. Central Line. Will need PICC line. Data Medications: Current Inpatient Medications Medications (Trade) Dose Ordered Sig/Clint Route Start Time Stop Time Status Last Admin Dose Admin Lorazepam 1 mg/ Syringe 1 ml @ 0.5 mls/min Q4H PRN IV 01/24/17 02:00 02/23/17 01:59 Ioversol (Optiray 320) 100 ml UD PRN IV 01/24/17 02:00 01/28/17 01:59 Miscellaneous Information (Consult Glycemic Management Pharmacy) 1 ea DAILY PRN N/A 01/24/17 02:06 02/23/17 02:05 Lorazepam (Ativan Inj) 1 mg Q4H PRN IV 01/24/17 03:00 02/23/17 02:59 01/24/17 14:38 1 MG Vancomycin HCl (Consult) 1 ea PRN N/A 01/24/17 04:15 02/23/17 04:14 Potassium Chloride/Sodium Chloride 1,000 ml @ 125 mls/hr Q8H IV 01/24/17 04:15 02/23/17 04:14 01/26/17 02:03 125 MLS/HR Dexmedetomidine HCl 200 mcg/ Sodium Chloride 50 ml @ 0 mls/hr Q0M PRN IV 01/24/17 10:00 01/28/17 09:59 01/25/17 07:38 2.3 MLS/HR Ceftriaxone Sodium 2000 mg/ Dextrose 70 ml @ 140 mls/hr Q12H IV 01/24/17 11:00 02/03/17 10:59 01/25/17 23:11 140 MLS/HR Ampicillin Sodium 2000 mg/Sodium Chloride 108 ml @ 216 mls/hr Q4H IV 01/24/17 12:00 02/03/17 11:59 01/26/17 07:29 216 MLS/HR Insulin Aspart (novoLOG ASPART) SLIDING SCALE G... Q4 SC 01/24/17 16:00 02/23/17 15:59 01/26/17 00:02 1 UNITS Acyclovir Sodium 550 mg/Dextrose 111 ml @ 100 mls/hr Q8H IV 01/24/17 13:00 02/03/17 12:59 01/26/17 05:31 100 MLS/HR Acyclovir Sodium (Consult) 1 [facility] PRN N/A 01/24/17 12:30 02/23/17 12:29 Vancomycin HCl 1250 mg/Sodium Chloride 275 ml @ 125 mls/hr Q12H IV 01/25/17 00:00 02/04/17 00:00 01/25/17 23:12 125 MLS/HR Midazolam HCl 250 ml @ 2 mls/hr Q24H PRN IV 01/24/17 18:30 02/23/17 18:29 01/26/17 02:04 2 MLS/HR Clopidogrel Bisulfate (plAVix TAB) 75 mg QAM PO 01/25/17 09:00 11/19/17 08:59 01/26/17 08:43 75 MG Norepinephrine Bitartrate 8 mg/ Dextrose 508 ml @ 0 mls/hr Q0M PRN IV 01/24/17 21:15 02/23/17 21:14 01/24/17 21:30 16.8 MLS/HR Heparin Sodium (Porcine) (Heparin 10 Unit/ ml 5 ml Flush) 5 ml PRN PRN FLUSH 01/25/17 00:15 02/24/17 00:14 Quetiapine Fumarate (seroQUEL TAB) 50 mg Q6 PO 01/25/17 12:00 02/24/17 11:59 01/26/17 06:12 50 MG Lansoprazole (Prevacid Solutab) 30 mg DAILY NG 01/25/17 09:06 02/24/17 09:05 01/26/17 08:42 30 MG Fentanyl Citrate 250 ml @ 0 mls/hr Q0M PRN IV 01/25/17 09:15 02/08/17 09:14 01/25/17 23:54 15 MLS/HR Aspirin (Aspirin Chew) 81 mg QAM NG 01/25/17 09:30 02/24/17 09:29 01/26/17 08:42 81 MG Miconazole Nitrate (Desenex Powder) 1 appln BID PRN EXT 01/25/17 13:15 02/24/17 13:14 Insulin Glargine (Lantus Solostar Pen) SEE PROTOCOL Q12 SC 01/25/17 18:00 02/24/17 17:59 01/26/17 08:45 15 UNITS Enteral Nutritional Formula (Peptamen Intense VHP) 1,000 ml UD PRN OG 01/25/17 14:15 02/24/17 14:14 01/25/17 15:58 1,000 ML Pneumococcal Polysaccharide Vaccine (Pneumovax-23 Inj) 25 mcg ONCE ONCE IM. 01/26/17 10:00 01/26/17 10:01 Vital Signs: Date Time Temp Pulse Resp B/P (MAP) Pulse Ox O2 Delivery O2 Flow Rate FiO2 01/26/17 09:01 37.1 117 18 107/67 (70) 100 01/26/17 08:01 37.2 118 18 106/62 (68) 98 01/26/17 08:00 Mechanical Ventilator 40 01/26/17 08:00 40 01/26/17 07:31 40 01/26/17 07:30 141 129/74 01/26/17 07:26 37.3 128 18 121/75 (90) 98 01/26/17 07:23 37.3 127 18 120/77 (84) 98 01/26/17 07:18 37.3 141 18 129/74 (86) 97 01/26/17 07:01 37.3 137 21 153/98 (117) 97 01/26/17 06:22 40 01/26/17 06:01 37.4 80 18 129/77 (109) 100 01/26/17 05:01 37.4 61 18 102/57 (75) 100 01/26/17 04:00 Mechanical Ventilator 40 01/26/17 04:00 37.5 61 18 104/53 (68) 100 01/26/17 04:00 40 01/26/17 03:00 37.5 63 18 111/56 (77) 100 01/26/17 02:45 40 01/26/17 02:00 37.6 63 18 103/55 (71) 100 01/26/17 01:01 37.6 61 18 100/53 (71) 100 01/26/17 00:01 Mechanical Ventilator 40 01/26/17 00:01 37.6 65 18 101/55 (77) 100 01/26/17 00:01 40 01/25/17 23:01 37.7 64 18 103/49 (71) 100 01/25/17 22:26 40 01/25/17 22:01 37.5 85 18 110/66 (89) 98 01/25/17 21:01 37.5 59 18 94/51 (65) 99 01/25/17 20:00 Mechanical Ventilator 40 01/25/17 20:00 37.5 58 18 94/52 (64) 98 01/25/17 20:00 40 01/25/17 19:45 40 01/25/17 19:01 37.4 57 18 92/52 (68) 99 01/25/17 18:00 37.3 59 18 99/56 (71) 100 01/25/17 17:16 40 01/25/17 17:00 37.2 60 18 103/54 (71) 100 01/25/17 16:00 37.1 61 18 106/58 (67) 100 01/25/17 16:00 Mechanical Ventilator 40 01/25/17 16:00 40 01/25/17 15:00 37.1 65 18 108/60 (82) 100 01/25/17 14:45 40 01/25/17 14:00 37.2 61 18 97/56 (69) 99 01/25/17 13:00 37.3 61 18 99/55 (69) 98 01/25/17 12:31 37.3 62 18 100/57 (71) 100 01/25/17 12:00 37.4 61 18 99/55 (60) 01/25/17 12:00 Mechanical Ventilator 40 01/25/17 12:00 40 01/25/17 11:35 40 01/25/17 11:30 37.5 61 18 100/55 (60) 98 01/25/17 11:00 37.6 59 18 99/56 (61) 98 01/25/17 10:30 37.7 60 18 99/56 (61) 99 01/25/17 10:00 37.7 60 18 100/57 (71) Laboratory Results: Last 24 Hours Test 01/25/17 11:58 01/25/17 13:48 01/25/17 15:59 01/25/17 20:19 Bedside Glucose 179 mg/dl 180 mg/dl 133 mg/dl Troponin I 9.190 ng/ml C-Reactive Protein 4.43 mg/dl Procalcitonin < 0.05 ng/ml Test 01/25/17 23:58 01/26/17 03:29 01/26/17 06:05 01/26/17 08:02 Bedside Glucose 162 mg/dl 119 mg/dl 131 mg/dl White Blood Count 10.91 K/uL Red Blood Count 3.99 M/uL Hemoglobin 11.3 g/dL Hematocrit 35.5 % Mean Corpuscular Volume 89.0 fL Mean Corpuscular Hemoglobin 28.3 pg Mean Corpuscular Hemoglobin Concent 31.8 g/dl Platelet Count 176 K/uL Mean Platelet Volume 11.8 fL Neutrophils (%) (Auto) 71.8 % Lymphocytes (%) (Auto) 16.6 % Monocytes (%) (Auto) 8.8 % Eosinophils (%) (Auto) 2.2 % Basophils (%) (Auto) 0.2 % Neutrophils # (Auto) 7.84 K/uL Lymphocytes # (Auto) 1.81 K/uL Monocytes # (Auto) 0.96 K/uL Eosinophils # (Auto) 0.24 K/uL Basophils # (Auto) 0.02 K/uL RDW Standard Deviation 48.0 fL RDW Coefficient of Variation 14.6 % Immature Granulocyte % (Auto) 0.4 % Immature Granulocyte # (Auto) 0.04 K/uL Sodium Level 145 mmol/L Potassium Level 4.1 mmol/L Chloride Level 117 mmol/L Carbon Dioxide Level 22 mmol/L Anion Gap 6.0 mmol/L Blood Urea Nitrogen 15 mg/dl Creatinine 0.65 mg/dl Est Creatinine Clear Calc Drug Dose 90.9 ml/min Estimated GFR () 103.5 Estimated GFR (Non- 89.3 BUN/Creatinine Ratio 22.4 Random Glucose 145 mg/dl Calcium Level 7.6 mg/dl Magnesium Level 2.1 mg/dl
[2017-01-26] MEDS ORDERED: PNEUMOCOCCAL ADMINISTRATION CHARGE ONE (10:00)
[2017-01-26] MEDS ORDERED: PNEUMOCOCCAL POLYSACCHARIDES 25 MCG/0.5 ML VIAL/SYR IM. ONE (10:00)
--- NOTE | 2017-01-26 10:37 | CARDIOLOGY PROGRESS NOTE ---
DATE: 01/26/2017 DATE: 01/26/2017 SUBJECTIVE: The patient remains sedated and ventilated in the intensive care unit. Her son is at the bedside. OBJECTIVE: VITAL SIGNS: Blood pressure is 107/67 with a regular pulse of 80. Respiratory rate is 18. The patient is afebrile at 37.1 degrees Celsius. Saturation 100% on 40% FIO2. NECK: Supple without obvious bruits. Jugular venous pressure cannot be assessed. CARDIOVASCULAR EXAMINATION: Reveals a regular rhythm with distant heart sounds. No murmurs or S3. LUNGS: No coarse breath sounds throughout. ABDOMEN: Soft without bruits. EXTREMITIES: Reveal intact radial artery pulses bilaterally. Trace pretibial edema is noted. LABORATORY DATA: CBC notes hemoglobin 11.3, hematocrit 35.5, white count 10.9, platelet count 176,000. Electrolytes note a sodium of 145, potassium 4.1, chloride 117, bicarb 22, BUN 15, creatinine 0.65, glucose 145. Troponin I level is down to 9.19 from a peak of 12.1. court recording monitor noted a paroxysm of atrial fibrillation earlier this morning. Currently in sinus rhythm. IMPRESSION AND PLAN: 1. Sepsis syndrome -- source not apparent at this time. Management per the ICU team. 2. Hypotension -- resolved. Has been off pressors for 24 hours. 3. Paroxysmal atrial fibrillation -- converted to sinus rhythm after a dose of intravenous metoprolol. Could consider use of intravenous amiodarone if necessary. 4. Coronary artery disease -- status post coronary artery bypass graft x3 in January 2014. 5. Hypercholesterolemia. 6. Diabetes mellitus. 7. Gastroesophageal reflux disease. 8. Diabetic neuropathy.
[2017-01-26] MEDS ORDERED: FUROSEMIDE INJ 10 MG in SYRINGE 0 ML IV ONE (11:00)
[2017-01-26] MEDS ORDERED: VANCOMYCIN TROUGH SCH (11:30)
[2017-01-26] MEDS: QUETIAPINE FUMARATE 100 MG TAB PO SCH ×2 (11:31→21:42)
[2017-01-26] MEDS: CEFTRIAXONE SOD INJ 2000 MG in DEXTROSE 5% 50ML IV SCH (11:31)
[2017-01-26] MEDS: METOPROLOL TARTRATE 1 MG/ML VIAL IV. SCH ×3 (11:32→18:00)
[2017-01-26] MEDS: VANCOMYCIN INJ 1,250 MG in SODIUM CHLORIDE 0.9% 250ML 250 ML IV SCH (12:50)
--- NOTE | 2017-01-26 12:50 | Family Medicine Progress Note ---
Progress Note Date of Service Jan 26, 2017. Subjective Pt evaluation today including: physical exam, chart review, lab review, review of studies, conversation w/ decorating consultant Pain: unable to assess for pain - pt sedated PO Intake: On OG tube feeds at 10ml/hr of Peptamen intense Voiding: wells catheter in place This AM pt remained sedated when examined. Constitutional: No fever Respiratory: + problem reported (intubated on mechanical ventilation) Neurologic: + problem reported (sedated and off sedation gets agitated ) Medications Current Inpatient Medications Medications (Trade) Dose Ordered Sig/Clint Route Start Time Stop Time Status Last Admin Dose Admin Lorazepam 1 mg/ Syringe 1 ml @ 0.5 mls/min Q4H PRN IV 01/24/17 02:00 02/23/17 01:59 Ioversol (Optiray 320) 100 ml UD PRN IV 01/24/17 02:00 01/28/17 01:59 Miscellaneous Information (Consult Glycemic Management Pharmacy) 1 ea DAILY PRN N/A 01/24/17 02:06 02/23/17 02:05 Lorazepam (Ativan Inj) 1 mg Q4H PRN IV 01/24/17 03:00 02/23/17 02:59 01/24/17 14:38 1 MG Vancomycin HCl (Consult) 1 ea UD PRN N/A 01/24/17 04:15 02/23/17 04:14 Dexmedetomidine HCl 200 mcg/ Sodium Chloride 50 ml @ 0 mls/hr Q0M PRN IV 01/24/17 10:00 01/28/17 09:59 01/25/17 07:38 2.3 MLS/HR Ceftriaxone Sodium 2000 mg/ Dextrose 70 ml @ 140 mls/hr Q12H IV 01/24/17 11:00 02/03/17 10:59 01/26/17 11:31 140 MLS/HR Ampicillin Sodium 2000 mg/Sodium Chloride 108 ml @ 216 mls/hr Q4H IV 01/24/17 12:00 02/03/17 11:59 01/26/17 11:31 216 MLS/HR Insulin Aspart (novoLOG ASPART) SLIDING SCALE G... Q4 SC 01/24/17 16:00 02/23/17 15:59 01/26/17 00:02 1 UNITS Acyclovir Sodium 550 mg/Dextrose 111 ml @ 100 mls/hr Q8H IV 01/24/17 13:00 02/03/17 12:59 01/26/17 05:31 100 MLS/HR Acyclovir Sodium (Consult) 1 ea UD PRN N/A 01/24/17 12:30 02/23/17 12:29 Vancomycin HCl 1250 mg/Sodium Chloride 275 ml @ 125 mls/hr Q12H IV 01/25/17 00:00 02/04/17 00:00 01/25/17 23:12 125 MLS/HR Midazolam HCl 250 ml @ 2 mls/hr Q24H PRN IV 01/24/17 18:30 02/23/17 18:29 01/26/17 02:04 2 MLS/HR Clopidogrel Bisulfate (plAVix TAB) 75 mg QAM PO 01/25/17 09:00 02/24/17 08:59 01/26/17 08:43 75 MG Norepinephrine Bitartrate 8 mg/ Dextrose 508 ml @ 0 mls/hr Q0M PRN IV 01/24/17 21:15 02/23/17 21:14 01/24/17 21:30 16.8 MLS/HR Heparin Sodium (Porcine) (Heparin 10 Unit/ ml 5 ml Flush) 5 ml PRN PRN FLUSH 01/25/17 00:15 02/24/17 00:14 Lansoprazole (Prevacid Solutab) 30 mg DAILY NG 01/25/17 09:06 02/24/17 09:05 01/26/17 08:42 30 MG Fentanyl Citrate 250 ml @ 0 mls/hr Q0M PRN IV 01/25/17 09:15 02/08/17 09:14 01/25/17 23:54 15 MLS/HR Miconazole Nitrate (Desenex Powder) 1 appln BID PRN EXT 01/25/17 13:15 02/24/17 13:14 Insulin Glargine (Lantus Solostar Pen) SEE PROTOCOL Q12 SC 01/25/17 18:00 02/24/17 17:59 01/26/17 08:45 15 UNITS Enteral Nutritional Formula (Peptamen Intense VHP) 1,000 ml UD PRN OG 01/25/17 14:15 02/24/17 14:14 01/25/17 15:58 1,000 ML Metoprolol Tartrate (Lopressor Iv) 5 mg Q4 IV. 01/26/17 12:00 02/25/17 11:59 01/26/17 12:06 2.5 MG Quetiapine Fumarate (seroQUEL TAB) 100 mg Q8 PO 01/26/17 12:00 02/05/17 11:59 01/26/17 11:31 100 MG Resident Involvement: Resident Care Provided Care Provided: [facility] Medicine Objective Vital Signs Date Time Temp Pulse Resp B/P (MAP) Pulse Ox O2 Delivery O2 Flow Rate FiO2 01/26/17 12:06 68 103/53 01/26/17 12:01 37.3 57 18 102/51 (62) 100 01/26/17 12:00 Mechanical Ventilator 40 01/26/17 12:00 40 01/26/17 11:45 37.3 61 18 98/53 (64) 100 01/26/17 11:28 37.2 67 18 103/53 (69) 100 01/26/17 11:00 37.2 66 18 102/56 (67) 100 01/26/17 10:49 37.2 62 0 99/53 (64) 100 01/26/17 10:28 37.1 64 15 96/50 (64) 100 01/26/17 10:25 37.1 64 23 96/52 (72) 100 01/26/17 10:01 37.1 103 18 95/64 (72) 100 01/26/17 09:01 37.1 117 18 107/67 (70) 100 01/26/17 08:01 37.2 118 18 106/62 (68) 98 01/26/17 08:00 Mechanical Ventilator 40 01/26/17 08:00 40 01/26/17 07:31 40 01/26/17 07:30 141 129/74 01/26/17 07:26 37.3 128 18 121/75 (90) 98 01/26/17 07:23 37.3 127 18 120/77 (84) 98 01/26/17 07:18 37.3 141 18 129/74 (86) 97 01/26/17 07:01 37.3 137 21 153/98 (117) 97 01/26/17 06:22 40 01/26/17 06:01 37.4 80 18 129/77 (109) 100 01/26/17 05:01 37.4 61 18 102/57 (75) 100 01/26/17 04:00 Mechanical Ventilator 40 01/26/17 04:00 37.5 61 18 104/53 (68) 100 01/26/17 04:00 40 01/26/17 03:00 37.5 63 18 111/56 (77) 100 01/26/17 02:45 40 01/26/17 02:00 37.6 63 18 103/55 (71) 100 01/26/17 01:01 37.6 61 18 100/53 (71) 100 01/26/17 00:01 Mechanical Ventilator 40 01/26/17 00:01 37.6 65 18 101/55 (77) 100 01/26/17 00:01 40 01/25/17 23:01 37.7 64 18 103/49 (71) 100 01/25/17 22:26 40 01/25/17 22:01 37.5 85 18 110/66 (89) 98 01/25/17 21:01 37.5 59 18 94/51 (65) 99 01/25/17 20:00 Mechanical Ventilator 40 01/25/17 20:00 37.5 58 18 94/52 (64) 98 01/25/17 20:00 40 01/25/17 19:45 40 01/25/17 19:01 37.4 57 18 92/52 (68) 99 01/25/17 18:00 37.3 59 18 99/56 (71) 100 01/25/17 17:16 40 01/25/17 17:00 37.2 60 18 103/54 (71) 100 01/25/17 16:00 37.1 61 18 106/58 (67) 100 01/25/17 16:00 Mechanical Ventilator 40 01/25/17 16:00 40 01/25/17 15:00 37.1 65 18 108/60 (82) 100 01/25/17 14:45 40 01/25/17 14:00 37.2 61 18 97/56 (69) 99 01/25/17 13:00 37.3 61 18 99/55 (69) 98 01/25/17 12:31 37.3 62 18 100/57 (71) 100 Physical Exam General Appearance: no apparent distress, + pertinent finding (sedated and intubated on mechanical ventilation) Respiratory/Chest: lungs clear, normal breath sounds, + pertinent finding ( intubated on mechanical ventilation with FiO2 of 40, rate 18, TV 450, peep 6) Cardiovascular: regular rate, rhythm, no murmur Abdomen: normal bowel sounds, non tender, soft Extremities: no pedal edema Neurologic/Psychiatric: + pertinent finding (medically sedated) Skin: warm/dry Laboratory Results 01/26/17 06:05 Red Blood Count 3.99, Mean Corpuscular Volume 89.0, Mean Corpuscular Hemoglobin 28.3, Mean Corpuscular Hemoglobin Concent 31.8, Mean Platelet Volume 11.8, Neutrophils (%) (Auto) 71.8, Lymphocytes (%) (Auto) 16.6, Monocytes (%) (Auto) 8.8, Eosinophils (%) (Auto) 2.2, Basophils (%) (Auto) 0.2, Neutrophils # (Auto) 7.84, Lymphocytes # (Auto) 1.81, Monocytes # (Auto) 0.96, Eosinophils # (Auto) 0.24, Basophils # (Auto) 0.02 01/26/17 06:05 Test 01/25/17 13:48 01/26/17 06:05 01/26/17 11:31 01/26/17 11:50 Troponin I 9.190 ng/ml (0-0.045) C-Reactive Protein 4.43 mg/dl (0-0.29) Procalcitonin < 0.05 ng/ml (0-0.5) White Blood Count 10.91 K/uL (4.8-10.8) Red Blood Count 3.99 M/uL (4.2-5.4) Hemoglobin 11.3 g/dL (12.0-16.0) Hematocrit 35.5 % (37-47) Mean Corpuscular Volume 89.0 fL (80-100) Mean Corpuscular Hemoglobin 28.3 pg (25-34) Mean Corpuscular Hemoglobin Concent 31.8 g/dl (32-36) Platelet Count 176 K/uL (130-400) Mean Platelet Volume 11.8 fL (7.4-10.4) Neutrophils (%) (Auto) 71.8 % Lymphocytes (%) (Auto) 16.6 % Monocytes (%) (Auto) 8.8 % Eosinophils (%) (Auto) 2.2 % Basophils (%) (Auto) 0.2 % Neutrophils # (Auto) 7.84 K/uL (1.4-6.5) Lymphocytes # (Auto) 1.81 K/uL (1.2-3.4) Monocytes # (Auto) 0.96 K/uL (0.11-0.59) Eosinophils # (Auto) 0.24 K/uL (0-0.5) Basophils # (Auto) 0.02 K/uL (0-0.2) RDW Standard Deviation 48.0 fL (36.4-46.3) RDW Coefficient of Variation 14.6 % (11.5-14.5) Immature Granulocyte % (Auto) 0.4 % Immature Granulocyte # (Auto) 0.04 K/uL (0.00-0.02) Anion Gap 6.0 mmol/L (3-11) Est Creatinine Clear Calc Drug Dose 90.9 ml/min Estimated GFR () 103.5 Estimated GFR (Non- 89.3 BUN/Creatinine Ratio 22.4 (10-20) Calcium Level 7.6 mg/dl (8.5-10.1) Magnesium Level 2.1 mg/dl (1.8-2.4) Bedside Glucose 115 mg/dl (70-90) Assessment and Plan 72y/oF with hx of CAD, CABG, TIA 4 years ago, DM, HLD with sepsis of unknown etiology and metabolic encephalopathy. Intubated on vent, sedated with fentanyl and versed, troponin downtrending - on ASA, plavix and lovenox, ABG wnl. NSR. Sepsis of an unknown source - ICU admission - CTA - no PE or consolidation, mild cardiomegaly - CT head (given agitation/AMS), abdomen and pelvis - no acute intracranial bleed or pathology, inflammatory changes, bowel obstruction or free air - Lipase and LFT wnl - Lyme/ Influenza neg - Empirically covering with - vanc, ceftriaxone, ampicillin and acyclovir day 3 - continue until tomorrow - OG tube feeds - 10mls/hr of peptamen intense tolerating - blood cultures - NGTD - UA not impressive - UCx - NGTD - repeat procalcitonin <0.05 - Will consider LP tomorrow to rule out possible meningitis given AMS if not improved Subendocardial Stress Ischemia vs. NV - hx of CAD/CABG - elevated troponin 12, downtrended to 9 - EKG with non-specific T wave changes - ECHO: EF = 45-50%, LV systolic function mildly reduced, mild global hypokinesis, mild concentric LVH, diastolic dys grade II, mild-mod MV regurg, mild tricuspid regurg - cardiology consulted - Started on Plavix, ASA and Lovenox 90mg (one more dose) for NV - Initiated BB today given improved BP and off pressors for 24 hrs - Afib briefly 130-150s - converted to sinus after a dose of IV metoprolol - per cards consider amiodarone IV if needed Metabolic encephalopathy - Likely due to urosepsis vs. meningitis (cannot rule out as too agitated for LP ) - Will consider LP tomorrow to rule out possible meningitis given AMS if not improved - Continue Vanc, ceftriaxone, ampicillin and acyclovir - day 3 until tomorrow - Intubated and on mechanical ventilation to help recover - Utox pending Agitation - Sedated with fentanyl and midazolam - increased seroquel dose Acute respiratory failure - hypercarbic - pCO2 52 - On mechanical ventilation with FiO2 of 40, peep 5, TV 450, RR 18 - extubate tomorrow if clinically improved DMII - Glipizide held - Insulin ISS with BSG AC/ HS - glycemic control consult HTN /CAD - Atorvastatin 40 mg held - Lasix 20 mg held - Metoprolol Depression/ anxiety - Citalopram 20 mg held - alprazolam 0.5 mg daily held Neuropathy - Gabapentin 100 mg bid held - Hydrocodone- acet 10-325 mg held GERD - Famotidine 40 mg held - Protonix 40 mg IV daily for GI prophylaxis DVT Prophylaxis - SCD D/C: PT/OT eval once clinically improved for discharge planning Note: Daughter Zandra primary decision maker Continued [facility] stay due to: other (pending clinical improvement) Discharge planning: other (pending PT/OT eval once clinically improved) Reviewed: Pt Seen/Exam by Me History Continues to be on vent. gets easily agitated on waking up Constitutional: denies: fever General Appearance: other (on vent. comfortable) Respiratory: lungs clear, no respiratory distress Cardiovascular: regular rate, rhythm Neurologic/Psychiatric: other (sedated on vent) Skin Characteristics: warm/dry Assessment/Plan Resident Physician Supervision Note: I independently interviewed and examined the patient and verified the kruger history and physical, reviewed labs and image studies, discussed the case with the resident Dr. Fatima and agree with the findings and care plan.
[2017-01-26] MEDS ORDERED: ROCURONIUM BROMIDE 10 MG/ML 10 ML VIAL IV SCH (14:00)
[2017-01-26] MEDS ORDERED: KETAMINE HCL INJ 50 MG/ML 10 ML VIAL IV SCH (14:00)
--- NOTE | 2017-01-26 14:34 | Pharmacy Progress Note ---
Pharmacy Abx Dose Short Note Date of Service Jan 26, 2017. Assessment & Plan Item Value Date Time Vancomycin Level Trough 13.9 mcg/ml 01/26/17 1131 Creatinine 0.65 mg/dl 01/26/17 06 Est Creatinine Clear Calc Drug Dose 90.9 ml/min 01/26/17 06 White Blood Count 10.91 K/uL H 01/26/17 06 Plan: Vancomycin * Maintenance dose: 1250mg (~13.8mg/kg) IV Q 12 hours. Will all of the IVs patient is receiving & difficulty maintaining IV access, administering doses on- time is difficult to achieve. Therefore, some flucuations in VANC may occur. * Goal trough level for meningitis : 15 to 20 mcg/mL, TROUGH level for today is near-therapeutic. * Will reorder VANC Trough level prior to 01/27/17 1200 dose Acyclovir: * BMI 34.2, dosing to be based upon ideal body weight in the setting of obesity : 10mg/kg IBW IV Q 8 hours (550mg per dose) * No adjustment required as eCrCl > 50cc/min Pharmacy will continue to follow and will adjust dose/frequency as necessary. Thank you.
[2017-01-26] MEDS: FENTANYL 1250MCG/250ML NSS IV PRN (14:53)
--- NOTE | 2017-01-26 16:16 | Procedure Note ---
Procedure Note Procedure Date Jan 26, 2017. Procedure Description Procedure Name: Lumbar puncture. Procedure time out: side/site verified, patient ID confirmed, correct procedure Consent obtained: written Performed by: attending Indications: diagnostic Contraindications: none Description: Indication: Sepsis, suspected meningitis. Sedation: Pre-existing sedation with fentanyl 100 migrans/hour, Versed 4 mg/ hour. In addition, patient needed to be paralyzed to assure the safety of procedure. According 100 mg 1 and ketamine 100 mg IV 1 were given After appropriate sedation and paralysis was obtained, patient was placed into the left lateral position. The area was prepped and draped in the usual sterile manner including 5 barriers and chlorhexidine skin prep. Skin was anesthetized with lidocaine 1% 5 mL locally. Needle was inserted at L3-L4 interspace. Clear fluid was obtained. No pressure was measured but it appeared to be low as CSF fluid was trickling slowly. Total in 3 mL of fluid was obtained. Patient tolerated procedure well. I performed the entire procedure myself. Complications: none Patient tolerated procedure: well Post-procedure vital signs: reviewed and stable
[2017-01-26 16:35] LABS: CSF APPEARANCE CLEAR; CSF COLOR COLORLESS
[2017-01-26 16:36] LABS: CSF CHEMISTRY TUBE # 1
[2017-01-26 16:50] LABS: CSF XANTHOCHROMIC NO XANTHOCHROMIA
[2017-01-26 16:54] LABS: CSF TOTAL PROTEIN 95.5 mg/dl (15.0-45.0)
[2017-01-26] MEDS: HEPARIN SOD 5000 UNIT/0.5 ML CARP SQ SCH (20:30)
[2017-01-27] VITALS (10 sets, daily range): BP systolic 110–157; BP diastolic 52–78; PULSE 58–110; TEMP 37.1–38.4; O2SAT 40–100
[2017-01-27] MEDS: METOPROLOL TARTRATE 1 MG/ML VIAL IV. SCH ×4 (00:04→16:26)
[2017-01-27] MEDS: INSULIN ASPART 100 UNITS/ML 3 ML PEN SC SCH ×6 (03:46→19:59)
[2017-01-27] MEDS: FENTANYL 1250MCG/250ML NSS IV PRN (04:02)
[2017-01-27] MEDS: QUETIAPINE FUMARATE 100 MG TAB PO SCH ×3 (05:36→20:36)
[2017-01-27 05:42] LABS: BASO % 0.2 %; BASO ABS # 0.02 K/uL (0-0.2); COMPLETE YES; EOS % 1.9 %; HEMATOCRIT 33.5 % (37-47); IG% 0.3 %; LYMPH % 13.5 %; LYMPH ABS # 1.16 K/uL (1.2-3.4); MEAN CELL VOLUME 88.6 fL (80-100); MEAN CORPUSCULAR HEMOGLOBIN 27.5 pg (25-34); MEAN PLATELET VOLUME 11.8 fL (7.4-10.4); MONO % 8.3 %; NEUT % 75.8 %; PLATELET COUNT 184 K/uL (130-400); RED BLOOD COUNT 3.78 M/uL (4.2-5.4)
[2017-01-27 06:10] LABS: BUN/CREATININE RATIO 26.2 (10-20); CALCIUM 7.9 mg/dl (8.5-10.1); CREATININE 0.57 mg/dl (0.60-1.20); MAGNESIUM 1.8 mg/dl (1.8-2.4); POTASSIUM 3.8 mmol/L (3.5-5.1)
[2017-01-27] MEDS: LANSOPRAZOLE SOLUTAB 30 MG NG SCH (08:46)
[2017-01-27] MEDS: FUROSEMIDE INJ 40 MG in SYRINGE 0 ML IV SCH ×2 (08:46→20:37)
[2017-01-27] MEDS: CLOPIDOGREL BISULFATE 75 MG TAB PO SCH (08:46)
[2017-01-27] MEDS: INSULIN GLARGINE SOLOSTAR 100 UNITS/ML 3 ML PEN SC SCH ×2 (08:48→20:35)
[2017-01-27] MEDS: HEPARIN SOD 5000 UNIT/0.5 ML CARP SQ SCH ×2 (08:49→20:36)
[2017-01-27] MEDS: MIDAZOLAM 125MG/250ML D5W 250 ML IV PRN (09:56)
--- NOTE | 2017-01-27 12:06 | CARDIOLOGY PROGRESS NOTE ---
DATE: 01/27/2017 SUBJECTIVE: Mrs. Gr remains sedated and ventilated in the intensive care unit. No further recurrence of her atrial fibrillation. OBJECTIVE: VITAL SIGNS: Blood pressure 114/58 with a regular pulse of 58. Respiratory rate is 18. The patient is afebrile at 37.3 degrees Celsius. Saturation 90% on 30% FIO2. NECK: Supple with full carotid upstrokes. No obvious bruits. Jugular venous pressure cannot be assessed. CARDIOVASCULAR: Reveals a regular rhythm with distant heart sounds. No murmurs, S3 or S4 noted. LUNGS: No coarse breath sounds throughout. ABDOMEN: Soft without bruits. EXTREMITIES: Reveal intact radial artery pulses bilaterally. Trace pedal edema is noted. DATA: CBC notes hemoglobin of 10.4, hematocrit 33.5, white count 8.6, platelet count 184,000. Electrolytes note a sodium of 144, potassium 3.8, chloride 115, bicarb 21, BUN 15, creatinine 0.57, glucose 150. Blood cultures revealed no growth. Lumbar puncture unremarkable at this point. Lyme titers are negative. IMPRESSION AND PLAN: 1. Sepsis syndrome. The source is still not identified. Management per the ICU team. 2. Hypotension -- resolved. 3. Paroxysmal atrial fibrillation - converted to sinus rhythm yesterday morning after a dose of intravenous metoprolol. Could consider use of intravenous amiodarone if arrhythmia recurs. 4. Coronary artery disease -- status post coronary artery bypass grafting x3 in January 2014. 5. Hypercholesterolemia. 6. Diabetes mellitus. 7. Gastroesophageal reflux disease. 8. Diabetic neuropathy.
--- NOTE | 2017-01-27 12:28 | Family Medicine Progress Note ---
Progress Note Date of Service Jan 27, 2017. Subjective Pt evaluation today including: conversation w/ patient, physical exam, chart review, lab review Pain: unable to assess as pt sedated PO Intake: tolerating GT feeds peptamen intense 40mls/hr Voiding: wells catheter in place This AM pt remains sedated and on vent. Sinus bradycardic on monitor. No vomiting reported by nursing. Constitutional: No fever Abdomen: No vomiting Neurologic: + problem reported (sedated) Medications Current Inpatient Medications Medications (Trade) Dose Ordered Sig/Clint Route Start Time Stop Time Status Last Admin Dose Admin Lorazepam 1 mg/ Syringe 1 ml @ 0.5 mls/min Q4H PRN IV 01/24/17 02:00 02/23/17 01:59 Ioversol (Optiray 320) 100 ml UD PRN IV 01/24/17 02:00 01/28/17 01:59 Miscellaneous Information (Consult Glycemic Management Pharmacy) 1 ea DAILY PRN N/A 01/24/17 02:06 02/23/17 02:05 Lorazepam (Ativan Inj) 1 mg Q4H PRN IV 01/24/17 03:00 02/23/17 02:59 01/24/17 14:38 1 MG Dexmedetomidine HCl 200 mcg/ Sodium Chloride 50 ml @ 0 mls/hr Q0M PRN IV 01/24/17 10:00 01/28/17 09:59 01/25/17 07:38 2.3 MLS/HR Insulin Aspart (novoLOG ASPART) SLIDING SCALE G... Q4 SC 01/24/17 16:00 02/23/17 15:59 01/26/17 00:02 1 UNITS Midazolam HCl 250 ml @ 2 mls/hr Q24H PRN IV 01/24/17 18:30 02/23/17 18:29 01/27/17 09:56 2 MLS/HR Clopidogrel Bisulfate (plAVix TAB) 75 mg QAM PO 01/25/17 09:00 02/24/17 08:59 01/27/17 08:46 75 MG Norepinephrine Bitartrate 8 mg/ Dextrose 508 ml @ 0 mls/hr Q0M PRN IV 01/24/17 21:15 02/23/17 21:14 01/24/17 21:30 16.8 MLS/HR Heparin Sodium (Porcine) (Heparin 10 Unit/ ml 5 ml Flush) 5 ml PRN PRN FLUSH 01/25/17 00:15 02/24/17 00:14 Lansoprazole (Prevacid Solutab) 30 mg DAILY NG 01/25/17 09:06 02/24/17 09:05 01/27/17 08:46 30 MG Fentanyl Citrate 250 ml @ 0 mls/hr Q0M PRN IV 01/25/17 09:15 02/08/17 09:14 01/27/17 04:02 20 MLS/HR Miconazole Nitrate (Desenex Powder) 1 appln BID PRN EXT 01/25/17 13:15 02/24/17 13:14 Insulin Glargine (Lantus Solostar Pen) SEE PROTOCOL Q12 SC 01/25/17 18:00 02/24/17 17:59 01/27/17 08:48 15 UNITS Enteral Nutritional Formula (Peptamen Intense VHP) 1,000 ml UD PRN OG 01/25/17 14:15 02/24/17 14:14 01/25/17 15:58 1,000 ML Quetiapine Fumarate (seroQUEL TAB) 100 mg Q8 PO 01/26/17 12:00 02/05/17 11:59 01/27/17 05:36 100 MG Heparin Sodium (Porcine) (Heparin Sq 5000 Unit/0.5ml) 5,000 unit Q12 SQ 01/26/17 21:00 02/25/17 20:59 01/27/17 08:49 5,000 UNIT Metoprolol Tartrate (Lopressor Iv) 2.5 mg Q6 IV. 01/26/17 18:00 02/25/17 17:59 01/27/17 00:04 2.5 MG Ceftriaxone Sodium 2000 mg/ Dextrose 70 ml @ 140 mls/hr Q24H IV 01/27/17 11:00 02/03/17 10:59 Furosemide 40 mg/ Syringe 4 ml @ 4 mls/min Q12 IV 01/27/17 09:00 02/26/17 08:59 01/27/17 08:46 4 MLS/MIN Objective Vital Signs Date Time Temp Pulse Resp B/P (MAP) Pulse Ox O2 Delivery O2 Flow Rate FiO2 01/27/17 11:32 30 01/27/17 08:00 40 01/27/17 08:00 Mechanical Ventilator 40 01/27/17 06:01 37.3 58 18 114/58 (77) 98 01/27/17 05:35 56 110/52 01/27/17 05:01 37.3 58 18 110/52 (75) 97 01/27/17 04:04 37.4 69 18 122/62 (87) 98 01/27/17 04:01 30 01/27/17 04:00 Mechanical Ventilator 40 01/27/17 04:00 40 01/27/17 03:01 37.4 67 18 140/67 (95) 99 01/27/17 02:01 37.3 63 18 136/63 (90) 100 01/27/17 01:20 30 01/27/17 01:01 37.3 62 18 127/61 (89) 100 01/27/17 00:10 37.2 58 18 126/61 (78) 100 01/27/17 00:04 61 132/63 01/27/17 00:01 37.1 63 18 132/63 (94) 100 01/27/17 00:01 Mechanical Ventilator 40 01/27/17 00:01 40 01/26/17 23:01 37.2 57 18 112/55 (70) 100 01/26/17 22:22 35 01/26/17 22:00 37.2 63 18 129/63 (93) 100 01/26/17 21:01 37.2 56 18 112/53 (76) 100 01/26/17 20:01 37.1 59 18 120/59 (89) 100 01/26/17 20:00 Mechanical Ventilator 40 01/26/17 20:00 40 01/26/17 19:01 36.9 57 18 121/55 (77) 100 01/26/17 19:00 40 01/26/17 18:01 36.9 58 18 117/55 (76) 100 01/26/17 18:00 57 01/26/17 17:01 37.0 61 18 120/56 (76) 100 01/26/17 16:31 37.0 62 18 114/52 (75) 100 01/26/17 16:01 37.0 70 18 140/66 (91) 100 01/26/17 16:00 Mechanical Ventilator 40 01/26/17 16:00 40 01/26/17 15:56 37.0 75 18 147/86 (106) 100 01/26/17 15:51 37.0 70 18 143/90 (112) 100 01/26/17 15:46 37.0 72 18 164/129 (136) 100 01/26/17 15:41 37.0 74 18 153/97 (108) 100 01/26/17 15:36 37.0 73 18 143/126 (132) 100 01/26/17 15:34 36.9 75 18 154/88 (110) 100 01/26/17 15:25 37.0 64 18 130/66 (95) 100 01/26/17 15:24 37.0 61 18 111/60 (81) 100 01/26/17 15:01 37.0 58 18 98/50 (67) 100 01/26/17 14:59 37.0 59 18 98/52 (67) 100 01/26/17 14:40 40 01/26/17 14:00 37.0 59 18 97/50 (65) 100 01/26/17 13:01 37.2 57 18 94/50 (67) 100 Physical Exam General Appearance: no apparent distress Eyes: normal inspection, PERRL Neck: supple Respiratory/Chest: lungs clear, normal breath sounds, + pertinent finding ( intubated on ventilator FiO2 30, rate 18, TV 450, peep 6) Cardiovascular: regular rate, rhythm, no murmur Abdomen: normal bowel sounds, non tender, soft Extremities: no pedal edema Neurologic/Psychiatric: + pertinent finding (sedated) Skin: warm/dry Laboratory Results 01/27/17 05:15 Red Blood Count 3.78, Mean Corpuscular Volume 88.6, Mean Corpuscular Hemoglobin 27.5, Mean Corpuscular Hemoglobin Concent 31.0, Mean Platelet Volume 11.8, Neutrophils (%) (Auto) 75.8, Lymphocytes (%) (Auto) 13.5, Monocytes (%) (Auto) 8.3, Eosinophils (%) (Auto) 1.9, Basophils (%) (Auto) 0.2, Neutrophils # (Auto) 6.52, Lymphocytes # (Auto) 1.16, Monocytes # (Auto) 0.71, Eosinophils # (Auto) 0.16, Basophils # (Auto) 0.02 01/27/17 05:15 Test 01/26/17 16:00 01/27/17 05:15 01/27/17 07:50 CSF Color COLORLESS CSF Appearance CLEAR CSF WBC 1 /uL (0-5) CSF RBC 1 /uL (0) CSF Xanthrochromic NO XANTHOCHROMIA CSF Cell Count Tube # 1 CSF Chemistry Tube # 1 CSF Glucose 93 mg/dl (40-70) CSF Total Protein 95.5 mg/dl (15.0-45.0) White Blood Count 8.60 K/uL (4.8-10.8) Red Blood Count 3.78 M/uL (4.2-5.4) Hemoglobin 10.4 g/dL (12.0-16.0) Hematocrit 33.5 % (37-47) Mean Corpuscular Volume 88.6 fL (80-100) Mean Corpuscular Hemoglobin 27.5 pg (25-34) Mean Corpuscular Hemoglobin Concent 31.0 g/dl (32-36) Platelet Count 184 K/uL (130-400) Mean Platelet Volume 11.8 fL (7.4-10.4) Neutrophils (%) (Auto) 75.8 % Lymphocytes (%) (Auto) 13.5 % Monocytes (%) (Auto) 8.3 % Eosinophils (%) (Auto) 1.9 % Basophils (%) (Auto) 0.2 % Neutrophils # (Auto) 6.52 K/uL (1.4-6.5) Lymphocytes # (Auto) 1.16 K/uL (1.2-3.4) Monocytes # (Auto) 0.71 K/uL (0.11-0.59) Eosinophils # (Auto) 0.16 K/uL (0-0.5) Basophils # (Auto) 0.02 K/uL (0-0.2) RDW Standard Deviation 47.8 fL (36.4-46.3) RDW Coefficient of Variation 14.7 % (11.5-14.5) Immature Granulocyte % (Auto) 0.3 % Immature Granulocyte # (Auto) 0.03 K/uL (0.00-0.02) Anion Gap 8.0 mmol/L (3-11) Est Creatinine Clear Calc Drug Dose 103.6 ml/min Estimated GFR () 108.1 Estimated GFR (Non- 93.3 BUN/Creatinine Ratio 26.2 (10-20) Calcium Level 7.9 mg/dl (8.5-10.1) Magnesium Level 1.8 mg/dl (1.8-2.4) Bedside Glucose 127 mg/dl (70-90) Assessment and Plan 72y/oF with hx of CAD, CABG, TIA 4 years ago, DM, HLD with sepsis of unknown etiology and metabolic encephalopathy. Intubated on vent, sedated with fentanyl and versed, sinus bradycardic with downtrending troponin on ASA, plavix and heparin, ABG wnl, LP gram stain neg. LP Cx pending. Acute respiratory failure - hypercarbic - pCO2 52 - Continues to be on mechanical ventilation with FiO2 of 30, peep 6, TV 450, RR 18 Sepsis of an unknown source - CTA - no PE or consolidation, mild cardiomegaly - CT head (given agitation/AMS), abdomen and pelvis - no acute intracranial bleed or pathology, inflammatory changes, bowel obstruction or free air - Lipase and LFT wnl - Lyme/ Influenza neg - blood cultures - NGTD - UA not impressive - UCx - NGTD - LP gram stain neg; Cx pending - repeat procalcitonin <0.05 - Stopped empiric coverage with vanc, ceftriaxone, ampicillin and acyclovir - - Continue ceftriaxone Subendocardial Stress Ischemia vs. NC - hx of CAD/CABG - elevated troponin 12, downtrended to 9 - EKG with non-specific T wave changes - ECHO: EF = 45-50%, LV systolic function mildly reduced, mild global hypokinesis, mild concentric LVH, diastolic dys grade II, mild-mod MV regurg, mild tricuspid regurg - cardiology consulted - Continue Plavix, ASA, heparin, metoprolol 2.5mg Metabolic encephalopathy of unknown origin - LP completed 01/26 to rule out possible meningitis - Intubated and on mechanical ventilation to help recover - Utox pending - Continue ceftriaxone Agitation - Sedated with fentanyl and versed - seroquel dose has been increased PAF - converted to NSR yesterday am. - seen by cardio. to consider antiarrhythmic if goes back into a fib DMII - Glipizide held - Insulin Lantus with SS BSG AC/ HS - glycemic control consult HTN /CAD - Atorvastatin 40 mg held - Lasix 20 mg - Metoprolol Depression/ anxiety - Citalopram 20 mg held - alprazolam 0.5 mg daily held Neuropathy - Gabapentin 100 mg bid held - Hydrocodone- acet 10-325 mg held GERD - Famotidine 40 mg held - lansoprazole DVT Prophylaxis - SCD D/C: PT/OT eval once clinically improved for discharge planning Note: Daughter Zandra primary decision maker Resident Involvement: Resident Care Provided Care Provided: Adult Hospital Medicine Reviewed: Pt Seen/Exam by Me History continues to be intubated. remains on sedation due to agitation Constitutional: denies: fever General Appearance: no apparent distress (intubated) Respiratory: lungs clear (anteriorly) Cardiovascular: regular rate, rhythm Gastrointestinal: normal bowel sounds, soft Neurologic/Psychiatric: other (sedated) Skin Characteristics: warm/dry Assessment/Plan Resident Physician Supervision Note: I independently interviewed and examined the patient and verified the kruger history and physical, reviewed labs and image studies, discussed the case with the resident Dr. Fatima and agree with the findings and care plan.
[2017-01-27] MEDS: CEFTRIAXONE SOD INJ 2000 MG in DEXTROSE 5% 50ML IV SCH (12:33)
[2017-01-27] MEDS ORDERED: NURSING VERBAL MED ORDER STA ×2 (12:56→14:15)
--- NOTE | 2017-01-27 13:10 | Critical Care Progress Note ---
Critical Care Progress Note Date of Service Jan 27, 2017. Attending Dr. Yesica Miller I personally examined this patient, reviewed her clinical and laboratory data, interpreted x-ray and formulated the plan of care. In summary, the patient is a 72 year old female with history of coronary artery disease, CABG, hyperlipidemia, TIA, suboptimally controlled diabetes mellitus who developed fever, chills, became confused and agitated few days prior to admission. She was brought to [facility] emergency room on 01/24/2017. Physical examination and CT scan did not reveal any obvious source of infection. CT scan of the chest without PE or infiltrates, mild cardiomegaly, CT of head without any intra-cranial abnormality with mild atrophy only, CT of abdomen and pelvis without obstruction or free air. Patient was transferred critically ill to surgical intensive care unit. 01/26: Uneventful night. Patient gets agitated off sedation. 01/27: Uneventful night. LP yesterday. Objective General Appearance: Sedated, intubated. Not in distress. Respiratory: breath sounds normal, clear to auscultation, clear to percussion, no respiratory distress, no tenderness, accessory muscle use CV: normal S1S2, no S3. Abdomen: non tender, normal bowel sounds, no rebound Genitourinary wells in place. Back: normal inspection, no midline tenderness, no CVA tenderness Upper Extremities: +2 edema Lower Extremities: no edema, Pulses: dorsalis pedis (R) (2+), dorsalis pedis (L) (2+) Neuro: Sedated. Off sedation, patient gets agitated, moves all extremities. No appreciable weakness. Pupils were equal, round and reactive to light. Face was symmetric. Psychiatric: Off sedation patient is agitated Current SOFA Score SOFA Score Response (Comments) Value Platelets (x10) > 150 0 Bilirubin (mg/dL) < 1.2 0 [place] Coma Score 13 - 14 1 Level of Hypotension No Hypotension 0 Creatinine (mg/dL) < 1.2 0 Total 1 Assessment & Plan 1. Sepsis. Etiology is not completely obvious. It could be related to urinary tract infection vs viral infection. Meningitis was ruled out as LP showed only 1 white blood cell count. Otherwise, CT scan of the head, chest, abdomen and pelvis did not reveal any obvious pathology. We'll complete 7 day course of Rocephin empirically as patient clinically appears to be improving. Cultures were not revealing. 2. Coronary artery disease, history of CABG 3 years ago, non-STEMI, leak of enzymes likely from demand ischemia in the setting of sepsis, marginal hypotension (troponin peaked at 12). Echocardiography revealed borderline global hypokinesis without any wall motion abnormality. Patient was evaluated by cardiology, no further intervention is planned. We'll continue with Plavix, and metoprolol. Paroxysmal atrial fibrillation currently sinus rhythm. We will gradually increase metoprolol as tolerated. 3. Acute respiratory failure for what will continue with full mechanical ventilator support. Pressure support was initiated, patient got extubated. She is still lethargic but appears to be able to protect airway. 4. Renal function is adequate. Fluid balance is positive for 11 L since admission. We will continue with diuresis, replace potassium. 5. Hyperactive delirium. Fentanyl and midazolam were stopped prior to extubation. Patient is still pretty somnolent due to residual effect of benzodiazepines and narcotics. Seroquel was titrated to 100 mg every 8 hours. We'll gradually titrated it to off as long as her delirium continues to improve. 6. GI: NG tube was discontinued. We'll initiate by mouth intake when patient is more awake. 7. Diabetes mellitus, hyperglycemia on Lantus and insulin sliding scale. 8. Heparin subcutaneous for DVT prophylaxis in addition to SCDs. I updated patient's son and daughter about patient's clinical condition and further clinical management. I spent totally 32 minutes of critical care time evaluating and managing this patient. ANVIK II Score Date Score Was Generated: Jan 26, 2017 Consults & Procedures Consultants: Admin Prog Coord Cardiology - [facility] [place] for elevated Troponins and EKG changes. Procedures: R. Central Line. Will need PICC line. Data Medications: Current Inpatient Medications Medications (Trade) Dose Ordered Sig/Clint Route Start Time Stop Time Status Last Admin Dose Admin Lorazepam 1 mg/ Syringe 1 ml @ 0.5 mls/min Q4H PRN IV 01/24/17 02:00 02/23/17 01:59 Ioversol (Optiray 320) 100 ml UD PRN IV 01/24/17 02:00 01/28/17 01:59 Miscellaneous Information (Consult Glycemic Management Pharmacy) 1 ea DAILY PRN N/A 01/24/17 02:06 02/23/17 02:05 Lorazepam (Ativan Inj) 1 mg Q4H PRN IV 01/24/17 03:00 02/23/17 02:59 01/24/17 14:38 1 MG Dexmedetomidine HCl 200 mcg/ Sodium Chloride 50 ml @ 0 mls/hr Q0M PRN IV 01/24/17 10:00 01/28/17 09:59 01/25/17 07:38 2.3 MLS/HR Insulin Aspart (novoLOG ASPART) SLIDING SCALE G... Q4 SC 01/24/17 16:00 02/23/17 15:59 01/26/17 00:02 1 UNITS Midazolam HCl 250 ml @ 2 mls/hr Q24H PRN IV 01/24/17 18:30 02/23/17 18:29 01/27/17 09:56 2 MLS/HR Clopidogrel Bisulfate (plAVix TAB) 75 mg QAM PO 01/25/17 09:00 02/24/17 08:59 01/27/17 08:46 75 MG Norepinephrine Bitartrate 8 mg/ Dextrose 508 ml @ 0 mls/hr Q0M PRN IV 01/24/17 21:15 02/23/17 21:14 01/24/17 21:30 16.8 MLS/HR Heparin Sodium (Porcine) (Heparin 10 Unit/ ml 5 ml Flush) 5 ml PRN PRN FLUSH 01/25/17 00:15 02/24/17 00:14 Lansoprazole (Prevacid Solutab) 30 mg DAILY NG 01/25/17 09:06 02/24/17 09:05 01/27/17 08:46 30 MG Fentanyl Citrate 250 ml @ 0 mls/hr Q0M PRN IV 01/25/17 09:15 02/08/17 09:14 01/27/17 04:02 20 MLS/HR Miconazole Nitrate (Desenex Powder) 1 appln BID PRN EXT 01/25/17 13:15 02/24/17 13:14 Insulin Glargine (Lantus Solostar Pen) SEE PROTOCOL Q12 SC 01/25/17 18:00 02/24/17 17:59 01/27/17 08:48 15 UNITS Enteral Nutritional Formula (Peptamen Intense VHP) 1,000 ml UD PRN OG 01/25/17 14:15 11/19/17 14:14 01/25/17 15:58 1,000 ML Quetiapine Fumarate (seroQUEL TAB) 100 mg Q8 PO 01/26/17 12:00 02/05/17 11:59 01/27/17 05:36 100 MG Heparin Sodium (Porcine) (Heparin Sq 5000 Unit/0.5ml) 5,000 unit Q12 SQ 01/26/17 21:00 02/25/17 20:59 01/27/17 08:49 5,000 UNIT Metoprolol Tartrate (Lopressor Iv) 2.5 mg Q6 IV. 01/26/17 18:00 02/25/17 17:59 01/27/17 12:34 2.5 MG Ceftriaxone Sodium 2000 mg/ Dextrose 70 ml @ 140 mls/hr Q24H IV 01/27/17 11:00 02/03/17 10:59 01/27/17 12:33 140 MLS/HR Furosemide 40 mg/ Syringe 4 ml @ 4 mls/min Q12 IV 01/27/17 09:00 02/26/17 08:59 01/27/17 08:46 4 MLS/MIN Furosemide 40 mg/ Syringe 4 ml @ 4 mls/min TODAY@1315 ONCE IV 01/27/17 13:15 01/27/17 13:16 Potassium Chloride (Klor-Con M10) 40 meq TODAY@1315 ONCE PO 01/27/17 13:15 01/27/17 13:16 Vital Signs: Date Time Temp Pulse Resp B/P (MAP) Pulse Ox O2 Delivery O2 Flow Rate FiO2 01/27/17 12:37 37.8 72 97 125/59 (81) 40 01/27/17 12:34 74 125/59 01/27/17 12:00 40 01/27/17 12:00 Mechanical Ventilator 40 01/27/17 11:32 30 01/27/17 08:00 40 01/27/17 08:00 Mechanical Ventilator 40 01/27/17 06:01 37.3 58 18 114/58 (77) 98 01/27/17 05:35 56 110/52 01/27/17 05:01 37.3 58 18 110/52 (75) 97 01/27/17 04:04 37.4 69 18 122/62 (87) 98 01/27/17 04:01 30 01/27/17 04:00 Mechanical Ventilator 40 01/27/17 04:00 40 01/27/17 03:01 37.4 67 18 140/67 (95) 99 01/27/17 02:01 37.3 63 18 136/63 (90) 100 01/27/17 01:20 30 01/27/17 01:01 37.3 62 18 127/61 (89) 100 01/27/17 00:10 37.2 58 18 126/61 (78) 100 01/27/17 00:04 61 132/63 01/27/17 00:01 37.1 63 18 132/63 (94) 100 01/27/17 00:01 Mechanical Ventilator 40 01/27/17 00:01 40 01/26/17 23:01 37.2 57 18 112/55 (70) 100 01/26/17 22:22 35 01/26/17 22:00 37.2 63 18 129/63 (93) 100 01/26/17 21:01 37.2 56 18 112/53 (76) 100 01/26/17 20:01 37.1 59 18 120/59 (89) 100 01/26/17 20:00 Mechanical Ventilator 40 01/26/17 20:00 40 01/26/17 19:01 36.9 57 18 121/55 (77) 100 01/26/17 19:00 40 01/26/17 18:01 36.9 58 18 117/55 (76) 100 01/26/17 18:00 57 01/26/17 17:01 37.0 61 18 120/56 (76) 100 01/26/17 16:31 37.0 62 18 114/52 (75) 100 01/26/17 16:01 37.0 70 18 140/66 (91) 100 01/26/17 16:00 Mechanical Ventilator 40 01/26/17 16:00 40 01/26/17 15:56 37.0 75 18 147/86 (106) 100 01/26/17 15:51 37.0 70 18 143/90 (112) 100 01/26/17 15:46 37.0 72 18 164/129 (136) 100 01/26/17 15:41 37.0 74 18 153/97 (108) 100 01/26/17 15:36 37.0 73 18 143/126 (132) 100 01/26/17 15:34 36.9 75 18 154/88 (110) 100 01/26/17 15:25 37.0 64 18 130/66 (95) 100 01/26/17 15:24 37.0 61 18 111/60 (81) 100 01/26/17 15:01 37.0 58 18 98/50 (67) 100 01/26/17 14:59 37.0 59 18 98/52 (67) 100 01/26/17 14:40 40 01/26/17 14:00 37.0 59 18 97/50 (65) 100 Laboratory Results: Last 24 Hours Test 01/26/17 16:00 01/26/17 16:15 01/26/17 19:59 01/27/17 00:01 CSF Color COLORLESS CSF Appearance CLEAR CSF WBC 1 /uL CSF RBC 1 /uL CSF Xanthrochromic NO XANTHOCHROMIA CSF Cell Count Tube # 1 CSF Chemistry Tube # 1 CSF Glucose 93 mg/dl CSF Total Protein 95.5 mg/dl Bedside Glucose 126 mg/dl 127 mg/dl 119 mg/dl Test 01/27/17 03:41 01/27/17 03:54 01/27/17 05:15 01/27/17 07:50 Bedside Glucose 127 mg/dl 132 mg/dl 127 mg/dl White Blood Count 8.60 K/uL Red Blood Count 3.78 M/uL Hemoglobin 10.4 g/dL Hematocrit 33.5 % Mean Corpuscular Volume 88.6 fL Mean Corpuscular Hemoglobin 27.5 pg Mean Corpuscular Hemoglobin Concent 31.0 g/dl Platelet Count 184 K/uL Mean Platelet Volume 11.8 fL Neutrophils (%) (Auto) 75.8 % Lymphocytes (%) (Auto) 13.5 % Monocytes (%) (Auto) 8.3 % Eosinophils (%) (Auto) 1.9 % Basophils (%) (Auto) 0.2 % Neutrophils # (Auto) 6.52 K/uL Lymphocytes # (Auto) 1.16 K/uL Monocytes # (Auto) 0.71 K/uL Eosinophils # (Auto) 0.16 K/uL Basophils # (Auto) 0.02 K/uL RDW Standard Deviation 47.8 fL RDW Coefficient of Variation 14.7 % Immature Granulocyte % (Auto) 0.3 % Immature Granulocyte # (Auto) 0.03 K/uL Sodium Level 144 mmol/L Potassium Level 3.8 mmol/L Chloride Level 115 mmol/L Carbon Dioxide Level 21 mmol/L Anion Gap 8.0 mmol/L Blood Urea Nitrogen 15 mg/dl Creatinine 0.57 mg/dl Est Creatinine Clear Calc Drug Dose 103.6 ml/min Estimated GFR () 108.1 Estimated GFR (Non- 93.3 BUN/Creatinine Ratio 26.2 Random Glucose 150 mg/dl Calcium Level 7.9 mg/dl Magnesium Level 1.8 mg/dl Test 01/27/17 11:59 Bedside Glucose 128 mg/dl
[2017-01-27] MEDS ORDERED: POTASSIUM CHLORIDE 10 MEQ TABCR PO ONE (13:15)
[2017-01-27] MEDS ORDERED: POTASSIUM CHLORIDE 20 MEQ/15 ML UDC PO SCH (13:15)
[2017-01-27] MEDS ORDERED: FUROSEMIDE INJ 40 MG in SYRINGE 0 ML IV ONE (13:15)
--- NOTE | 2017-01-27 14:16 | Pharmacy Progress Note ---
Glycemic Control Progress Note Date of Service Jan 27, 2017. Scope Glycemic Pharmacist consulted for glycemic control to write orders per [facility] inpatient glycemic control protocol. Objective Accuchecks BSG (last 24hrs): Test 01/26/17 16:15 01/26/17 19:59 01/27/17 00:01 01/27/17 03:41 Bedside Glucose 126 mg/dl (70-90) 127 mg/dl (70-90) 119 mg/dl (70-90) 127 mg/dl (70-90) Test 01/27/17 03:54 01/27/17 05:15 01/27/17 07:50 01/27/17 11:59 Bedside Glucose 132 mg/dl (70-90) 127 mg/dl (70-90) 128 mg/dl (70-90) Random Glucose 150 mg/dl (70-99) HbA1c: Test 01/25/17 05:17 Hemoglobin A1c 9.3 % (4.5-5.6) H Recent Pertinent Medications The patient is currently receiving: * Basal insulin: Lantus 15 units every 12 hours * Correctional Insulin: Novolog Correction per scale ACHS Goal Range: Low 120 mg/dL - High 150 mg/dL Correction Factor: 18 mg/dL/unit * Prandial insulin: Per carb ratio of 1 unit per 6 grams CHO consumed Outpatient Anti-Diabetic Meds Oral Agents Basal Insulin Bolus Insulin Assessment & Plan ASSESSMENT: * See progress note from 01/25/17 for more background info, in short: * Pt receiving SQ basal bolus insulin regimen for hyperglycemia secondary to baseline DM (outpatient regimen on hold), stress/infection * Pt was started on Peptamen bariatric trickle feeds on 01/25/17 pm (10 ml/hr) with a goal of 50 ml/hr. Peptamen rate was advanced to 40 ml/hr on 01/27 @ 0000. BSGs have remained unchanged despite advancement. * Patient is currently receiving an average of 30 units of insulin per day * 30 units of basal insulin * 0 units of prandial/correctional insulin * BSGs ranging 115 - 135 mg/dl over the past 24hrs * Changes needed to insulin regimen: * AM Fasting BSG = 124 mg/dl. This is at goal range for patient based on inpatient targets and co-morbidities. No change to Lantus. * Post-prandial BSGs are in range therefore no changes needed to CF/CR. * If post-prandial BSGs become elevated while on tube feeds, will consider change to regular insulin, which is preferred for patients on continuous tube feeds. (Peptamen 40 ml/hr x 24 hr = 74.8 g carbohydrate. Based on CR of 9, recommend starting scheduled regular insulin 2 units q6 + regular correctional insulin as needed). PLAN FOR INPATIENT GLYCEMIC CONTROL: * Oral Agents * Continue to hold outpatient oral diabetes medications. * Basal insulin * Continue Lantus 15-18 units SQ BID * Bolus insulin * NovoLog per scale q4h * Goal Range: Low 120 mg/dL - High 150 mg/dL * Correction Factor: 18 mg/dL/unit * Nutritional / Prandial insulin per carb ratio of 1 unit per 6 grams CHO consumed * If BSGs climb at any point to >220 mg/dL - initiate insulin drip per moderate stress protocol and overlap with Lantus * Please note that the plan above was derived based on current level of insulin resistance and hospital stress. These recommendations are appropriate for inpatient admission only. Plan of care upon discharge will need to be reassessed to avoid potential outpatient hypo/hyperglycemia. Thank you.
[2017-01-27] MEDS ORDERED: ACETAMINOPHEN IV 1000MG/100ML IV ONE (14:30)
[2017-01-27 14:41] LABS: ISTAT CARBON DIOXIDE VENOUS 24 mEq/l (24-31); ISTAT VENOUS BLOOD GAS HCO3 23 meq/L (23-28); ISTAT VENOUS BLOOD GAS PCO2 44 mmHg (38.0-50.0); ISTAT VENOUS BLOOD GAS PO2 40 mmHg (30-55); ISTAT VENOUS BLOOD GAS pH 7.33 (7.36-7.41)
[2017-01-27 18:11] LABS: URCREATININE 184.5 MG/DL (>/= 20)
[2017-01-28] VITALS (12 sets, daily range): BP systolic 115–148; BP diastolic 62–108; PULSE 65–118; TEMP 36.4–38.1; O2SAT 93–97; BMI 37.8
[2017-01-28] MEDS: METOPROLOL TARTRATE 1 MG/ML VIAL IV. SCH ×2 (00:04→05:38)
[2017-01-28] MEDS ORDERED: KETOROLAC TROMETHAMINE 30 MG/ML VIAL ONE (01:05)
[2017-01-28] MEDS ORDERED: NURSING VERBAL MED ORDER ONE ×2 (01:15→09:00)
[2017-01-28] MEDS ORDERED: KETOROLAC TROMETHAMINE 15 MG/ML VIAL IV. PRN (01:15)
[2017-01-28] MEDS: INSULIN ASPART 100 UNITS/ML 3 ML PEN SC SCH ×6 (04:00→20:22)
[2017-01-28 05:24] LABS: BASO % 0.2 %; BASO ABS # 0.02 K/uL (0-0.2); COMPLETE YES; EOS % 2.3 %; HEMATOCRIT 34.6 % (37-47); IG% 0.2 %; LYMPH % 19.2 %; LYMPH ABS # 1.73 K/uL (1.2-3.4); MEAN CELL VOLUME 87.6 fL (80-100); MEAN CORPUSCULAR HEMOGLOBIN 28.9 pg (25-34); MEAN CORPUSCULAR HGB CONC 32.9 g/dl (32-36); MEAN PLATELET VOLUME 11.3 fL (7.4-10.4); NEUT % 66.1 %; PLATELET COUNT 206 K/uL (130-400); RED BLOOD COUNT 3.95 M/uL (4.2-5.4); WHITE BLOOD COUNT 9.03 K/uL (4.8-10.8)
[2017-01-28] MEDS: QUETIAPINE FUMARATE 100 MG TAB PO SCH (05:38)
[2017-01-28 05:50] LABS: BUN/CREATININE RATIO 22.7 (10-20); CALCIUM 8.3 mg/dl (8.5-10.1); CREATININE 0.5 mg/dl (0.60-1.20); MAGNESIUM 1.4 mg/dl (1.8-2.4)
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
[2017-01-28] MEDS: CLOPIDOGREL BISULFATE 75 MG TAB PO SCH (07:27)
[2017-01-28] MEDS: LANSOPRAZOLE SOLUTAB 30 MG NG SCH (07:27)
[2017-01-28] MEDS: INSULIN GLARGINE SOLOSTAR 100 UNITS/ML 3 ML PEN SC SCH ×2 (07:29→20:27)
[2017-01-28] MEDS: HEPARIN SOD 5000 UNIT/0.5 ML CARP SQ SCH (07:29)
[2017-01-28] MEDS ORDERED: POTASSIUM CHLORIDE PWD 20 MEQ PACK PO ONE (09:15)
[2017-01-28] MEDS ORDERED: MAGNESIUM OXIDE 400 MG TAB PO ONE (09:15)
--- NOTE | 2017-01-28 10:10 | CARDIOLOGY PROGRESS NOTE ---
DATE: 01/28/2017 SUBJECTIVE: Mrs. Gr is resting comfortably in bed without complaints. She was successfully extubated yesterday. Her daughter is at the bedside and the cardiac issues were explained in detail. OBJECTIVE: VITAL SIGNS: Blood pressure is 127/76 with a regular pulse of 70. Respiratory rate is 20 and the patient is afebrile at 36.4 degrees Celsius. Saturations 93% on room air. NECK: Supple with full carotid upstrokes. There are no carotid bruits. Jugular venous pressure is flat at 90 degrees. There is no thyromegaly. CARDIOVASCULAR: Reveals a regular rhythm with distant heart sounds. No obvious murmurs. No S3. LUNGS: Clear without rales, rhonchi, or wheezes. ABDOMEN: Obese without bruits. EXTREMITIES: Reveal intact radial artery pulses bilaterally. Trace pedal edema noted. DATA: CBC notes hemoglobin 11.4, hematocrit 34.6, white count 9.0, platelet count 206,000. Electrolytes note a sodium of 143, potassium 3.0, chloride 108, bicarb 29, BUN 11, creatinine 0.5, glucose 84. spotter driver notes occasional PVCs. IMPRESSION AND PLAN: 1. Sepsis syndrome -- patient is improving. Source is still uncertain. 2. Hypotension -- resolved. 3. Paroxysmal atrial fibrillation -- converted to sinus rhythm after IV metoprolol. According to the daughter, the patient had an episode of atrial fibrillation following her bypass surgery in January 2014. She does typically follow up with Dr. Benitez in [place]. 4. Coronary artery disease -- status post coronary artery bypass graft x3 in January 2014. 5. Hypercholesterolemia. 6. Mild left ventricular dysfunction, borderline to mild global hypokinesis with an ejection fraction of 45%-50%. No individual wall motion abnormality identified. Suspect this was related to her critical illness at the time of presentation. 7. Diabetes mellitus. 8. Gastroesophageal reflux disease. 9. Neuropathy. MTDD
[2017-01-28 10:12] LABS: ISTAT ALLEN TEST Pass; ISTAT ARTERIAL BLOOD GAS HCO3 27 meq/L (19-24); ISTAT ARTERIAL BLOOD GAS PCO2 38 mmHg (35-46); ISTAT ARTERIAL BLOOD GAS PO2 60 mmHg (80-95); ISTAT ARTERIAL BLOOD GAS pH 7.46 (7.35-7.45); ISTAT CARBON DIOXIDE 28 mEq/l (24-31); ISTAT DELIVERY SYSTEM Room Air; ISTAT SITE R Radial
[2017-01-28] MEDS ORDERED: DOCUSATE SODIUM/SENNA 50/8.6MG TAB PO PRN (10:15)
[2017-01-28] MEDS: MAGNESIUM SULFATE 1GM / D5W 1 GM in PREMIXED IN D5W 100 ML IV SCH ×2 (10:22→10:45)
[2017-01-28] MEDS: CEFTRIAXONE SOD INJ 2000 MG in DEXTROSE 5% 50ML IV SCH (10:23)
[2017-01-28] MEDS ORDERED: METOPROLOL TARTRATE 25 MG TAB PO ONE ×2 (10:45→13:30)
[2017-01-28] MEDS: CHLOROTHIAZIDE INJ 500 MG in DEXTROSE 5% 50ML 50 ML IV SCH ×2 (10:45→21:48)
[2017-01-28] MEDS ORDERED: LISINOPRIL 10 MG TAB PO ONE (10:45)
--- NOTE | 2017-01-28 11:13 | Pharmacy Progress Note ---
Glycemic: Assessment & Plan Date of Service Jan 28, 2017. Assessment & Plan ASSESSMENT: * See progress note from 01/25/17 for more background info, in short: * Pt receiving SQ basal bolus insulin regimen for hyperglycemia secondary to baseline DM (outpatient regimen on hold - unknown insulin doses), stress/ infection * Pt was started on Peptamen bariatric over the weekend, which was advanced to goal, and BSGs were unchanged * Per ICU rounds this AM - plan is to discontinue feeds and advance diet to clears * Changes needed to insulin regimen: * AM Fasting BSG = 84 mg/dl. This is slightly below goal range for a patient in the ICU. Regimen is obviously basal heavy as patient has received 1 unit of Novolog over the past 72 hours. Reduce Lantus by 50% now that tube feeds are off and re-evaluate tomorrow. * Post-prandial BSGs are in range however CF/CR hasn't been utilized since admission. Loosen to wt based/stress of 2 and continue to monitor closely with Q 4 checks. PLAN FOR INPATIENT GLYCEMIC CONTROL: * Oral Agents * Continue to hold outpatient oral diabetes medications. * Basal insulin * Reduce to Lantus 8 units this AM * Continue Lantus 0-16 units BID based on BSG * Bolus insulin * NovoLog per scale ACHS + 00,04 * Goal Range: Low 120 mg/dL - High 150 mg/dL * Correction Factor: 25 mg/dL/unit * Nutritional / Prandial insulin per carb ratio of 1 unit per 9 grams CHO consumed * Please note that the plan above was derived based on current level of insulin resistance and hospital stress. These recommendations are appropriate for inpatient admission only. Plan of care upon discharge will need to be reassessed to avoid potential outpatient hypo/hyperglycemia. Thank you.
[2017-01-28] MEDS ORDERED: POLYETHYLENE (MIRALAX) 17 GM PACK PO PRN (11:15)
[2017-01-28] MEDS ORDERED: POLYETHYLENE (MIRALAX) 17 GM PACK PO ONE (11:15)
[2017-01-28] MEDS ORDERED: DOCUSATE SODIUM 100 MG CAP PO ONE (11:15)
--- NOTE | 2017-01-28 11:52 | Progress Note ---
Progress Note Date of Service Jan 28, 2017. Progress Note ID Consult Dictated #[id number] A/P: 1.Fever- infectious vs noninfectious -?aspiration event, would suggest repeat cxr, check dopplers, ? CAD (troponin + ) as potential source -All micro negative, would complete 7 days ctx -Thank you
--- NOTE | 2017-01-28 12:10 | INFECT. DISEASE CONSULTATION ---
DATE OF CONSULTATION: 01/28/2017 REQUESTING PHYSICIAN: Dr. Peña. HISTORY OF PRESENT ILLNESS: This is a 72-year-old female who was admitted from [facility] for concern of sepsis. She has had intermittent fevers throughout her hospital stay. On the , her T-max of 38.5. On the , it was 37.9. On the , it was 37.7 and overnight, it was 38.4. She is afebrile currently. She did have high CO2 levels and was intubated for a brief period of time, but is not extubated. Her initial chest x-ray showed questionable left basilar opacity; however, CAT scan of the chest did not show any consolidation. This was also negative for PE. She has had an extensive workup including blood cultures and urine cultures, both of which have been negative. A Lyme titer as well as a flu swab were negative. She did undergo a lumbar puncture a few days therapy with antibiotics and her cultures are negative to date. She only had 1 blood cell. She has a markedly positive troponins up to 12. Urinalysis had 10-20 WBCs and no white blood cells. Her first initial white blood cell did show a white blood cell count of 13.6; however, this has improved to 9. She was on significant antibiotics including Levaquin, vancomycin, acyclovir and Unasyn, but she has been downgraded to Rocephin monotherapy. She currently is awake and eating lunch on my examination. She is currently on clear liquids. She did have a positive urine drug screen for opiates and benzos. Her family is at the bedside and she states she is much better. She states she does not remember coming into the hospital. She denies any headache or shortness of breath. She has no pleuritic chest pain. Her daughter states she did have some dry cough prior to admission. She currently denies any chest pain. She has no nausea, vomiting, diarrhea or abdominal pain. She denies any arthralgias or myalgias. Her remaining review of systems is reviewed and unremarkable. PAST MEDICAL HISTORY: Significant for AK with stent placement, hypertension, and diabetes. PAST SURGICAL HISTORY: Significant for appendectomy and hysterectomy. FAMILY HISTORY: Noncontributory. SOCIAL HISTORY: Unremarkable. ALLERGIES: She has no known drug allergies. CURRENT MEDICATIONS: Include lisinopril, insulin, magnesium, Lopressor, Colace, potassium, Diamox, MiraLax, Senokot, Tylenol, Toradol, Rocephin, Lantus, subQ heparin, Desenex, Prevacid, and Ativan. PHYSICAL EXAMINATION: VITAL SIGNS: She is currently afebrile, pulse 70, respiratory rate 20, blood pressure is 127/66 and oxygen saturation is 93% on room air. GENERAL: She is awake, alert and oriented x3 on my examination. HEENT: Mucous membranes are dry. Extraocular muscles are intact. HEART: Regular. LUNGS: Clear with decreased breath sounds at the bases bilaterally. ABDOMEN: Soft, nontender, and nondistended. SKIN: Without rash. There is no edema. LABORATORY STUDIES: CBC reveals a white blood cell count of 9, hemoglobin 11.4, and platelets are 206. Sed rate is 44. Chemistry panel reveals a sodium of 143, potassium 3, chloride 108, bicarbonate 29, BUN 11, creatinine 0.5, and glucose is 84. LFTs are normal on admission. Troponins are positive. CSF showed 1 blood cell and elevated glucose and elevated protein. MATTHEW rheumatoid factor and double stranded DNA are pending. Lyme, flu and hepatitis C antibodies are negative. Blood cultures from the are no growth to date. A urine culture from the is no growth and final. CSF cultures from the are no growth and final. Her most recent chest x-ray is from the . ASSESSMENT AND PLAN: Fever. Question infectious versus noninfectious. If she continues with fever and negative cultures, Dopplers could be done to rule out deep venous thrombosis. Certainly her positive troponins could be leading to the fever as well. I am also concerned that she could have had aspiration event. She could continue a 7-day course empirically for this. She did have a positive urine drug screen for opiates and benzodiazepines, which could make an aspiration more likely at home prior to the admission. Thank you for this consultation. DAYANNA
[2017-01-28] MEDS ORDERED: METOPROLOL TARTRATE 1 MG/ML VIAL IV STA (12:29)
[2017-01-28] MEDS ORDERED: METOPROLOL TARTRATE 1 MG/ML VIAL ONE (12:29)
--- NOTE | 2017-01-28 13:29 | Critical Care Progress Note ---
Critical Care Progress Note Date of Service Jan 28, 2017. ICU Day ICU Day Number: [address] Chaves Subjective 72 year old female with PMH of CAD, CABG, HLD, TIA, DM who presented with fevers , chills and agitation. Initial investigations were positive for benzos and opiates with a WCC of 13. CT of head, chest, abd/pelvis were all negative. She also had an LP which did not appear infectious. She was on significant antibiotics including Levaquin, vancomycin, acyclovir and unasyn, but she has been downgraded to Rocephin monotherapy. Her mental status improved with bipap. We was found to have troponins with a max of 12 and was decided to treat this conservatively with medical management. Today the patient states that she feels much better. She did continue to spike a temp yesterday afternoon at 38.4 as well as 38.1 overnight. She denied any subjective fevers, chills or sweats. She denies any chest pain, shortness of breath or cough. Of note the patients daughter did note that the patient does snore while sleeping and has occasions where she will stop breathing for a few seconds at a time. She denies new joint pain, new rashes, skin changes, headache, nausea, vomiting , abdominal pain or diarrhea. She has not had a bowel movement since arriving to the hospital. Objective General Appearance: alert and in no clear distress Respiratory: breath sounds normal, clear to auscultation, clear to percussion, no respiratory distress, no tenderness, accessory muscle use CV: normal S1S2, no S3. Abdomen: non tender, normal bowel sounds, no rebound Genitourinary wells in place. Upper Extremities: +2 edema Lower Extremities: no edema, Pulses: strong peripheral pulses Neuro: patient alert to person, and place but not time. thinks its 1988. able to recall president Current SOFA Score SOFA Score Response (Comments) Value Platelets (x10) > 150 0 Bilirubin (mg/dL) < 1.2 0 [place] Coma Score 13 - 14 1 Level of Hypotension No Hypotension 0 Creatinine (mg/dL) < 1.2 0 Total 1 Assessment & Plan NEURO cam positive stop seroquel abg with pc02 of 38 and ph of 7.46 order ammonia level ID continue with rocephin recheck procalcitonin flu and lyme negative Bcx and Ucx negative wcc 9.03 this morning ID consulted - question aspiration event before hospitalization due to use of benzo's and opiates CARDIAC ef 45-50% with mild global hypokinesis trop peak of 12 and then 9, downtrending medical management with plavix and metoprolol started lisinopril start chlorothiazide and acetazolamide discuss anticoagulation with primary team and PCP, high risk for stroke RESP on 2L NC which is home requirement CXR on showed L basilar opacity and moderate cardiomegaly CPAP QHS due to hx of snoring and apneic events GI no bm since clears advance as tolerated senokot and dulcolax prn constpation lansoprazole PO ENDO diabetes mellitus HbA1c 9.3 bsg well controlled, decreased lantus to 8 units q12 wells in [address] +6 L since beginning of admission sodium 143 and potassium 3.0 today, mag 1.4 lasix held 60mg potassium PO given today with another 60mg tonight 2grams magnesium IV and 400 qhs clear liquid diet DVT prophylaxis - hep 5000 unit subq q12 PT/OT ordered FULL CODE Resident Physician Supervision Note: Dr. Lin was resident physician during care of patient. I separately evaluated patient and did history and exam. I discussed the case with the resident and generally agree with the findings and plan. Patient with improved mental status per nursing as well as patient's daughter. There may be some underlying dementia, patient was able to score 4 out of 5 in world backwards and was only able to remember one of 3 objects. It is unclear whether the patient has her been risk stratified for anticoagulation, her CHADS2 -VASC would indicate need for anticoagulation, however given the patient's dementia and declining functional status may preclude the patient from anticoagulation. The patient has had paroxysmal A. fib and has largely been in normal sinus rhythm during the course of her admission. Indicated both the patient as well as the patient's daughter that they should follow-up with a primary care provider for further evaluation and stratification of need of anticoagulation. Patient is still undergoing aggressive diuresis and potassium repletion. She is started on clears able to take oral medication and stable for downgraded out of the ICU Documented By: Aj Chaves DO MANZANITA II Score Date Score Was Generated: Jan 26, 2017 Consults & Procedures Consultants: [facility] - [facility] [place] on 01/25/2017 for elevated Troponins and EKG changes. Procedures: R. Central Line. Will need PICC line. Data Medications: Current Inpatient Medications Medications (Trade) Dose Ordered Sig/Clint Route Start Time Stop Time Status Last Admin Dose Admin Lorazepam 1 mg/ Syringe 1 ml @ 0.5 mls/min Q4H PRN IV 01/24/17 02:00 02/23/17 01:59 Miscellaneous Information (Consult Glycemic Management Pharmacy) 1 ea DAILY PRN N/A 01/24/17 02:06 02/23/17 02:05 Lorazepam (Ativan Inj) 1 mg Q4H PRN IV 01/24/17 03:00 02/23/17 02:59 01/24/17 14:38 1 MG Clopidogrel Bisulfate (plAVix TAB) 75 mg QAM PO 01/25/17 09:00 02/24/17 08:59 01/28/17 07:27 75 MG Heparin Sodium (Porcine) (Heparin 10 Unit/ ml 5 ml Flush) 5 ml PRN PRN FLUSH 01/25/17 00:15 02/24/17 00:14 Lansoprazole (Prevacid Solutab) 30 mg DAILY NG 01/25/17 09:06 02/24/17 09:05 01/28/17 07:27 30 MG Miconazole Nitrate (Desenex Powder) 1 appln BID PRN EXT 01/25/17 13:15 02/24/17 13:14 Insulin Glargine (Lantus Solostar Pen) SEE PROTOCOL Q12 SC 01/25/17 18:00 02/24/17 17:59 01/28/17 07:29 8 UNITS Heparin Sodium (Porcine) (Heparin Sq 5000 Unit/0.5ml) 5,000 unit Q12 SQ 01/26/17 21:00 02/25/17 20:59 01/28/17 07:29 5,000 UNIT Ceftriaxone Sodium 2000 mg/ Dextrose 70 ml @ 140 mls/hr Q24H IV 01/27/17 11:00 02/03/17 10:59 01/28/17 10:23 140 MLS/HR Ketorolac Tromethamine (Toradol Inj) 15 mg Q6H PRN IV. 01/28/17 01:15 02/02/17 01:14 Acetaminophen (Tylenol Tab) 650 mg Q4H PRN PO 01/28/17 03:15 02/27/17 03:14 Lisinopril (Zestril Tab) 10 mg QAM PO 01/29/17 09:00 02/28/17 08:59 Acetazolamide (Diamox Tab) 500 mg TID PO 01/28/17 14:00 02/27/17 13:59 Chlorothiazide Sodium 500 mg/ Dextrose 68 ml @ 200 mls/hr Q12H IV 01/28/17 10:00 01/28/17 22:21 01/28/17 10:45 200 MLS/HR Potassium Chloride (Klor-Con Pwd) 60 meq 1800 PO 01/28/17 18:00 01/28/17 23:59 Magnesium Oxide (Mag-Ox Tab) 400 mg HS PO 01/28/17 21:00 02/27/17 20:59 Metoprolol Tartrate (Lopressor Tab) 12.5 mg BID PO 01/28/17 21:00 02/27/17 20:59 Senna/Docusate Sodium (Senokot S Tab) 1 tab BID PRN PO 01/28/17 10:15 02/27/17 10:14 Insulin Aspart (novoLOG ASPART) SLIDING SCALE G... ACHS SC 01/28/17 12:00 02/27/17 11:59 01/28/17 12:37 2 UNITS Insulin Aspart (novoLOG ASPART) SLIDING SCALE G... 0200 ID 01/29/17 02:00 02/28/17 01:59 Docusate Sodium (coLACE CAP) 100 mg BID PO 01/28/17 21:00 02/27/17 20:59 Polyethylene (Miralax Powder Packet) 17 gm DAILY PRN PO 01/28/17 11:15 02/27/17 11:14 Metoprolol Tartrate (Lopressor Iv) 5 mg NOW STAT IV 01/28/17 12:29 01/28/17 12:30 UNV Vital Signs: Date Time Temp Pulse Resp B/P (MAP) Pulse Ox O2 Delivery O2 Flow Rate FiO2 01/28/17 12:33 118 115/64 01/28/17 12:00 Room Air 01/28/17 12:00 37.2 118 20 115/64 (81) 94 Room Air 01/28/17 08:00 Room Air 01/28/17 08:00 Nasal Cannula 01/28/17 08:00 36.4 78 20 127/76 (93) 93 Room Air 01/28/17 05:38 85 132/77 01/28/17 05:01 37.1 77 22 132/77 (95) 97 Nasal Cannula 2.0 01/28/17 04:01 37.3 88 17 145/79 (101) 96 Nasal Cannula 2.0 01/28/17 04:00 Nasal Cannula 2.0 01/28/17 03:01 37.5 88 24 141/73 (95) 97 Nasal Cannula 2.0 01/28/17 02:41 37.6 83 20 138/72 (94) 97 Nasal Cannula 2.0 01/28/17 02:01 37.9 84 25 138/72 (94) 95 Nasal Cannula 2.0 01/28/17 01:01 38.1 81 21 148/70 (96) 97 Nasal Cannula 2.0 01/28/17 00:04 88 142/108 01/28/17 00:01 Nasal Cannula 2.0 01/28/17 00:01 38.0 88 24 142/108 (119) 97 Nasal Cannula 2.0 01/27/17 20:00 Nasal Cannula 2.0 01/27/17 16:26 100 127/58 01/27/17 16:00 Mechanical Ventilator 40 01/27/17 14:18 38.4 110 92 157/78 (104) Nasal Cannula 5.0 Laboratory Results: Last 24 Hours Test 01/27/17 14:30 01/27/17 16:00 01/27/17 19:56 01/27/17 23:55 Bedside Venous pH 7.33 Bedside Venous pCO2 44 mmHg Bedside Venous pO2 40 mmHg Bedside Venous HCO3 23 meq/L Bedside Venous Blood Total CO2 24 mEq/l Bedside Venous Blood O2 Saturation 68.0 % Bedside Venous Blood Base Excess -3.0 meq/L Bedside Glucose 155 mg/dl 120 mg/dl 91 mg/dl Test 01/28/17 04:04 01/28/17 04:58 01/28/17 07:24 01/28/17 10:01 Bedside Glucose 73 mg/dl 84 mg/dl White Blood Count 9.03 K/uL Red Blood Count 3.95 M/uL Hemoglobin 11.4 g/dL Hematocrit 34.6 % Mean Corpuscular Volume 87.6 fL Mean Corpuscular Hemoglobin 28.9 pg Mean Corpuscular Hemoglobin Concent 32.9 g/dl Platelet Count 206 K/uL Mean Platelet Volume 11.3 fL Neutrophils (%) (Auto) 66.1 % Lymphocytes (%) (Auto) 19.2 % Monocytes (%) (Auto) 12.0 % Eosinophils (%) (Auto) 2.3 % Basophils (%) (Auto) 0.2 % Neutrophils # (Auto) 5.97 K/uL Lymphocytes # (Auto) 1.73 K/uL Monocytes # (Auto) 1.08 K/uL Eosinophils # (Auto) 0.21 K/uL Basophils # (Auto) 0.02 K/uL RDW Standard Deviation 45.3 fL RDW Coefficient of Variation 14.1 % Immature Granulocyte % (Auto) 0.2 % Immature Granulocyte # (Auto) 0.02 K/uL Sodium Level 143 mmol/L Potassium Level 3.0 mmol/L Chloride Level 108 mmol/L Carbon Dioxide Level 29 mmol/L Anion Gap 6.0 mmol/L Blood Urea Nitrogen 11 mg/dl Creatinine 0.50 mg/dl Est Creatinine Clear Calc Drug Dose 118.7 ml/min Estimated GFR () 112.9 Estimated GFR (Non- 97.4 BUN/Creatinine Ratio 22.7 Random Glucose 76 mg/dl Calcium Level 8.3 mg/dl Magnesium Level 1.4 mg/dl Blood Gas Sample Site R Radial Bedside Blood Gas pH (LAB) 7.46 Bedside Blood Gas pCO2 (LAB) 38 mmHg Bedside Blood Gas pO2 (LAB) 60 mmHg Bedside Blood Gas HCO3 (LAB) 27 meq/L Bedside Blood Gas Total CO2 28 mEq/l Bedside Blood Gas Base Excess (LAB) 3.0 meq/L Bedside Blood Gas O2 Saturation 92.0 % Dinh Test Pass Oxygen Delivery Device Room Air Test 01/28/17 10:06 01/28/17 10:07 01/28/17 11:25 01/28/17 12:35 Ammonia 30.0 umol/L Procalcitonin < 0.05 ng/ml Erythrocyte Sedimentation Rate 44 mm/hr Rheumatoid Factor < 10.0 U/mL Bedside Glucose 200 mg/dl
[2017-01-28] MEDS ORDERED: NURSING VERBAL MED ORDER STA (13:54)
[2017-01-28] MEDS ORDERED: POTASSIUM CHLR 10 MEQ / WTR 10 MEQ in PREMIXED WATER 100 ML IV ONE (14:00)
[2017-01-28] MEDS ORDERED: AMIODARONE / D5W 100 ML IV SCH (14:00)
[2017-01-28] MEDS: AcetaZOLAMIDE 250 MG TAB PO SCH ×2 (14:10→20:21)
[2017-01-28] MEDS ORDERED: AMIODARONE / D5W 200 ML IV SCH (14:15)
--- NOTE | 2017-01-28 14:37 | Cardiology Follow-Up ---
Subjective Date of Service: Jan 28, 2017. Pt evaluation today including: conversation w/ patient, conversation w/ family , lab review, review of inpatient medication list History of Present Illness Pt went into AF with a rapid HR today at around 11:15 this AM, asymptomatic. Metoprolol was increased to 25 BID and she is getting an amiodarone bolus but remains in AF with A HR about 120 average. Social History Smoking Status: Unknown if Ever Smoked Review of Systems Respiratory: + sputum (clear sputum), No cough, No shortness of breath Cardiac: No chest pain, No edema Objective Vital Signs Past 12 Hours Date Time Temp Pulse Resp B/P (MAP) Pulse Ox O2 Delivery O2 Flow Rate FiO2 01/28/17 12:33 118 115/64 01/28/17 12:00 Room Air 01/28/17 12:00 37.2 118 20 115/64 (81) 94 Room Air 01/28/17 08:00 Room Air 01/28/17 08:00 Nasal Cannula 01/28/17 08:00 36.4 78 20 127/76 (93) 93 Room Air 01/28/17 05:38 85 132/77 01/28/17 05:01 37.1 77 22 132/77 (95) 97 Nasal Cannula 2.0 01/28/17 04:01 37.3 88 17 145/79 (101) 96 Nasal Cannula 2.0 01/28/17 04:00 Nasal Cannula 2.0 01/28/17 03:01 37.5 88 24 141/73 (95) 97 Nasal Cannula 2.0 01/28/17 02:41 37.6 83 20 138/72 (94) 97 Nasal Cannula 2.0 Last Recorded Weight-Kilograms: 100.000 Intake & Output 8-Hour Column 01/28/17 01/28/17 01/29/17 15:59 23:59 07:59 Intake Total 780 ml Output Total 800 ml Balance -20 ml 24-Hour Column 01/29/17 07:59 Intake Total 780 ml Output Total 800 ml Balance -20 ml Data Laboratory Results: Last 24 Hours Test 01/27/17 16:00 01/27/17 19:56 01/27/17 23:55 01/28/17 04:04 Bedside Glucose 155 mg/dl 120 mg/dl 91 mg/dl 73 mg/dl Test 01/28/17 04:58 01/28/17 07:24 01/28/17 10:01 01/28/17 10:06 White Blood Count 9.03 K/uL Red Blood Count 3.95 M/uL Hemoglobin 11.4 g/dL Hematocrit 34.6 % Mean Corpuscular Volume 87.6 fL Mean Corpuscular Hemoglobin 28.9 pg Mean Corpuscular Hemoglobin Concent 32.9 g/dl Platelet Count 206 K/uL Mean Platelet Volume 11.3 fL Neutrophils (%) (Auto) 66.1 % Lymphocytes (%) (Auto) 19.2 % Monocytes (%) (Auto) 12.0 % Eosinophils (%) (Auto) 2.3 % Basophils (%) (Auto) 0.2 % Neutrophils # (Auto) 5.97 K/uL Lymphocytes # (Auto) 1.73 K/uL Monocytes # (Auto) 1.08 K/uL Eosinophils # (Auto) 0.21 K/uL Basophils # (Auto) 0.02 K/uL RDW Standard Deviation 45.3 fL RDW Coefficient of Variation 14.1 % Immature Granulocyte % (Auto) 0.2 % Immature Granulocyte # (Auto) 0.02 K/uL Sodium Level 143 mmol/L Potassium Level 3.0 mmol/L Chloride Level 108 mmol/L Carbon Dioxide Level 29 mmol/L Anion Gap 6.0 mmol/L Blood Urea Nitrogen 11 mg/dl Creatinine 0.50 mg/dl Est Creatinine Clear Calc Drug Dose 118.7 ml/min Estimated GFR () 112.9 Estimated GFR (Non- 97.4 BUN/Creatinine Ratio 22.7 Random Glucose 76 mg/dl Calcium Level 8.3 mg/dl Magnesium Level 1.4 mg/dl Bedside Glucose 84 mg/dl Blood Gas Sample Site R Radial Bedside Blood Gas pH (LAB) 7.46 Bedside Blood Gas pCO2 (LAB) 38 mmHg Bedside Blood Gas pO2 (LAB) 60 mmHg Bedside Blood Gas HCO3 (LAB) 27 meq/L Bedside Blood Gas Total CO2 28 mEq/l Bedside Blood Gas Base Excess (LAB) 3.0 meq/L Bedside Blood Gas O2 Saturation 92.0 % Dinh Test Pass Oxygen Delivery Device Room Air Ammonia 30.0 umol/L Test 01/28/17 10:07 01/28/17 11:25 01/28/17 12:35 Procalcitonin < 0.05 ng/ml Erythrocyte Sedimentation Rate 44 mm/hr Rheumatoid Factor < 10.0 U/mL Bedside Glucose 200 mg/dl Telemetry reviewed: AF with rapid HR starting around 11:15 this AM Assessment and Plan AF with rapid HR: Will start IV heparin and continue current beta blockade and amiodarone.
[2017-01-28] MEDS ORDERED: ALUMINUM/MAGNESIUM SUSP 30 ML UDC PO STA (14:47)
[2017-01-28] MEDS ORDERED: HEPARIN IV BOLUS 6,000 UNIT in SYRINGE 0 ML IV ONE (15:00)
[2017-01-28] MEDS ORDERED: ALUMINUM/MAGNESIUM SUSP 30 ML UDC PO PRN (15:00)
[2017-01-28] MEDS ORDERED: POTASSIUM ACETATE INJ 10 MEQ in SODIUM CHLORIDE 0.9% 100ML 100 ML IV SCH (15:00)
[2017-01-28] MEDS: HEPARIN 25,000 UNIT/500ML D5W 500 ML IV PRN (15:10)
[2017-01-28] MEDS: ACETAMINOPHEN 325 MG TAB PO PRN (16:09)
[2017-01-28] MEDS ORDERED: POTASSIUM CHLORIDE PWD 20 MEQ PACK PO SCH (18:00)
[2017-01-28] MEDS: DOCUSATE SODIUM 100 MG CAP PO SCH (20:13)
[2017-01-28] MEDS: MAGNESIUM OXIDE 400 MG TAB PO SCH (20:21)
[2017-01-28] MEDS: METOPROLOL TARTRATE 25 MG TAB PO SCH (20:21)
[2017-01-28] MEDS: AMIODARONE / D5W 200 ML IV SCH (20:26)
[2017-01-28] MEDS ORDERED: METOPROLOL TARTRATE 25 MG TAB PO SCH (21:00)
[2017-01-28 21:54] LABS: PARTIAL THROMBOPLASTIN RATIO 2.3
[2017-01-29] VITALS (8 sets, daily range): BP systolic 119–140; BP diastolic 52–80; PULSE 67–85; TEMP 36.8–37; O2SAT 94–98
[2017-01-29] MEDS: ACETAMINOPHEN 325 MG TAB PO PRN (01:31)
[2017-01-29] MEDS ORDERED: INSULIN ASPART 100 UNITS/ML 3 ML PEN SC SCH (02:00)
[2017-01-29 05:11] LABS: BASO % 0.3 %; BASO ABS # 0.03 K/uL (0-0.2); COMPLETE YES; EOS % 2.9 %; HEMATOCRIT 33.8 % (37-47); IG% 0.4 %; LYMPH % 27.1 %; LYMPH ABS # 2.75 K/uL (1.2-3.4); MEAN CELL VOLUME 87.1 fL (80-100); MEAN CORPUSCULAR HEMOGLOBIN 28.1 pg (25-34); MEAN CORPUSCULAR HGB CONC 32.2 g/dl (32-36); MEAN PLATELET VOLUME 11.1 fL (7.4-10.4); MONO % 10.1 %; NEUT % 59.2 %; PLATELET COUNT 248 K/uL (130-400); RED BLOOD COUNT 3.88 M/uL (4.2-5.4); WHITE BLOOD COUNT 10.15 K/uL (4.8-10.8)
[2017-01-29 05:34] LABS: PARTIAL THROMBOPLASTIN RATIO 2.4
[2017-01-29 05:40] LABS: BUN/CREATININE RATIO 16.4 (10-20); CALCIUM 8.6 mg/dl (8.5-10.1); CREATININE 0.51 mg/dl (0.60-1.20); POTASSIUM 3.6 mmol/L (3.5-5.1)
[2017-01-29] MEDS ORDERED: MIDAZOLAM HCL 5 MG/ML 2ML VIAL IV ONE (07:08)
[2017-01-29] MEDS ORDERED: KETAMINE HCL INJ 50 MG/ML 10 ML VIAL IV ONE (07:08)
[2017-01-29] MEDS ORDERED: SUCCINYLCHOLINE CHLORIDE 20 MG/ML 10 ML VIAL IV ONE (07:08)
[2017-01-29] MEDS: AcetaZOLAMIDE 250 MG TAB PO SCH (07:29)
[2017-01-29] MEDS: CLOPIDOGREL BISULFATE 75 MG TAB PO SCH (07:29)
[2017-01-29] MEDS: METOPROLOL TARTRATE 25 MG TAB PO SCH ×2 (07:29→20:45)
[2017-01-29] MEDS: DOCUSATE SODIUM 100 MG CAP PO SCH ×2 (07:29→19:34)
[2017-01-29] MEDS: LISINOPRIL 10 MG TAB PO SCH (07:29)
[2017-01-29] MEDS: LANSOPRAZOLE SOLUTAB 30 MG NG SCH (07:29)
[2017-01-29] MEDS: INSULIN GLARGINE SOLOSTAR 100 UNITS/ML 3 ML PEN SC SCH ×2 (07:30→20:46)
[2017-01-29] MEDS: AMIODARONE / D5W 200 ML IV SCH ×2 (07:32→19:33)
[2017-01-29] MEDS: INSULIN ASPART 100 UNITS/ML 3 ML PEN SC SCH ×4 (07:34→20:44)
--- NOTE | 2017-01-29 09:08 | DIAGNOSTIC IMAGING REPORT ---
CHEST 2 VIEWS ROUTINE HISTORY: 72 years-old Female pna? Acute cough and sepsis with possible pneumonia COMPARISON: Chest radiograph 01/24/2017, CT chest 01/24/2017 TECHNIQUE: Portable upright AP and lateral views of the chest FINDINGS: There has been interval removal of the previously seen endotracheal and enteric tubes. Cardiac silhouette is mildly enlarged. Prior median sternotomy. Atherosclerosis of the aorta. No pneumothorax or focal airspace consolidation. There are small bilateral pleural effusions with fluid tracking along the fissures. No overt pulmonary edema. Bones of the chest are grossly intact. Right-sided PICC terminates in the region of the superior cavoatrial junction. IMPRESSION: 1. Cardiomegaly without overt pulmonary edema. 2. Small bilateral pleural effusions without lobar airspace consolidation to suggest pneumonia. 2. Right-sided PICC terminates in the region of the superior cavoatrial junction. The above report was generated using voice recognition software. It may contain grammatical, syntax or spelling errors. Electronically signed by: Kevan Parra M.D. 01/29/2017 9:07 AM Dictated Date/Time: 01/29/2017 9:04 AM
--- NOTE | 2017-01-29 09:22 | DIAGNOSTIC IMAGING REPORT ---
ULTRASOUND VENOUS DOPPLER LWR EXT BILA CLINICAL HISTORY: Leg swelling. COMPARISON STUDY: No previous studies for comparison. FINDINGS: Real-time and color flow Doppler imaging were performed. Flow was seen within the femoral, popliteal and calf veins with no intraluminal thrombus demonstrated. The saphenous vein is patent. IMPRESSION: No evidence of lower extremity DVT. Electronically signed by: Nemesio Wright M.D. 01/29/2017 9:21 AM Dictated Date/Time: 01/29/2017 9:18 AM
--- NOTE | 2017-01-29 09:37 | CARDIOLOGY PROGRESS NOTE ---
DATE: 01/29/2017 SUBJECTIVE: Mrs. Gr is resting comfortably in bed without complaints of chest pain, dyspnea, or palpitations. Converted to sinus rhythm after a bolus of amiodarone yesterday. OBJECTIVE: VITAL SIGNS: Blood pressure 130/60 with a regular pulse of 67. Respiratory rate is 18 and the patient is afebrile at 36.8 degrees Celsius. Saturation is 95% on room air. NECK: Supple with full carotid upstrokes. There are no carotid bruits. Jugular venous pressure is flat at 90 degrees. There is no thyromegaly. CARDIOVASCULAR: Reveals a regular rhythm with distant heart sounds. No obvious murmurs. No S3. LUNGS: Clear without rales, rhonchi, or wheezes. ABDOMEN: Obese without bruits. EXTREMITIES: Reveal intact radial artery pulses bilaterally. Trace pretibial edema is noted. LABORATORY DATA: CBC notes hemoglobin of 10.9, hematocrit 33.8, white count 10.1, platelet count 248,000. Electrolytes note a sodium of 141, potassium 3.6, chloride 108, bicarb 25, BUN 8, creatinine 0.5, glucose 109. PTT is 61.1. patient monitor notes sinus rhythm. IMPRESSION AND PLAN: 1. Sepsis syndrome -- patient continues to improve. Workup is still in progress to identify a source. Lower extremity Dopplers to rule out DVT. 2. Hypotension -- resolved. 3. Paroxysmal atrial fibrillation -- converted to sinus rhythm on intravenous amiodarone. Would consider switching to oral dosing at 200 mg daily. She seems to be a good candidate for long-term anticoagulation as this arrhythmia did occur following her bypass surgery 3 years ago. 4. Coronary artery disease -- status post coronary artery bypass graft x3 in January 2014. 5. Mild left ventricular dysfunction -- ejection fraction was 45-50% soon after admission. Suspect this was related to her critical illness. We will reassess as an outpatient. 6. Hypercholesterolemia. 7. Diabetes mellitus. 8. Gastroesophageal reflux disease. 9. Peripheral neuropathy.
[2017-01-29] MEDS: CEFTRIAXONE SOD INJ 2000 MG in DEXTROSE 5% 50ML IV SCH (10:13)
[2017-01-29] MEDS: FUROSEMIDE 20 MG TAB PO SCH (10:13)
[2017-01-29] MEDS: HEPARIN 25,000 UNIT/500ML D5W 500 ML IV PRN (10:28)
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
--- NOTE | 2017-01-29 13:49 | Progress Note ---
Subjective Date of Service: Jan 29, 2017. Subjective pt awaiting transfer to medical floor afebrile overnight. blood, urine and csf cultures all negative. no overnight events. Remains on emperic ctx. tolerating well. Objective Vital Signs Date Time Temp Pulse Resp B/P (MAP) Pulse Ox O2 Delivery O2 Flow Rate FiO2 01/29/17 12:00 Room Air 01/29/17 12:00 37.0 70 16 140/76 (97) 94 Room Air 01/29/17 08:00 Room Air 01/29/17 08:00 67 17 133/61 (85) 95 Room Air 01/29/17 04:00 36.8 74 17 135/60 (85) 96 Room Air 01/29/17 04:00 96 Room Air 01/29/17 00:00 97 Room Air 01/29/17 00:00 37.0 70 20 119/52 (74) 97 Room Air 01/28/17 21:47 65 94 30 01/28/17 20:00 Room Air 01/28/17 20:00 37.2 72 20 116/62 (80) 93 Room Air 95.0 01/28/17 16:00 37.2 72 20 127/100 (109) 93 Room Air 01/28/17 16:00 Room Air Laboratory Results Item Value Date Time Gram Stain - Final Complete 01/26/17 1600 Cerebral Spinal Fluid Urine Culture - Final Complete 01/24/17 1045 Urine,Catheterized NO GROWTH - LESS THAN 1,000 COLONIES/ML Blood Culture - Final Complete 01/24/17 0321 Blood NO GROWTH Blood Culture - Final Complete 01/24/17 0310 Blood NO GROWTH Last 24 Hours Test 01/28/17 15:14 01/28/17 20:00 01/28/17 21:20 01/29/17 01:37 Bedside Glucose 149 mg/dl 121 mg/dl 117 mg/dl Activated Partial Thromboplast Time 59.0 SECONDS Partial Thromboplastin Ratio 2.3 Test 01/29/17 04:57 01/29/17 06:29 01/29/17 08:17 01/29/17 11:25 White Blood Count 10.15 K/uL Red Blood Count 3.88 M/uL Hemoglobin 10.9 g/dL Hematocrit 33.8 % Mean Corpuscular Volume 87.1 fL Mean Corpuscular Hemoglobin 28.1 pg Mean Corpuscular Hemoglobin Concent 32.2 g/dl Platelet Count 248 K/uL Mean Platelet Volume 11.1 fL Neutrophils (%) (Auto) 59.2 % Lymphocytes (%) (Auto) 27.1 % Monocytes (%) (Auto) 10.1 % Eosinophils (%) (Auto) 2.9 % Basophils (%) (Auto) 0.3 % Neutrophils # (Auto) 6.01 K/uL Lymphocytes # (Auto) 2.75 K/uL Monocytes # (Auto) 1.03 K/uL Eosinophils # (Auto) 0.29 K/uL Basophils # (Auto) 0.03 K/uL RDW Standard Deviation 45.1 fL RDW Coefficient of Variation 14.5 % Immature Granulocyte % (Auto) 0.4 % Immature Granulocyte # (Auto) 0.04 K/uL Activated Partial Thromboplast Time 61.1 SECONDS Partial Thromboplastin Ratio 2.4 Sodium Level 141 mmol/L Potassium Level 3.6 mmol/L Chloride Level 108 mmol/L Carbon Dioxide Level 25 mmol/L Anion Gap 8.0 mmol/L Blood Urea Nitrogen 8 mg/dl Creatinine 0.51 mg/dl Est Creatinine Clear Calc Drug Dose 116.3 ml/min Estimated GFR () 112.1 Estimated GFR (Non- 96.7 BUN/Creatinine Ratio 16.4 Random Glucose 109 mg/dl Calcium Level 8.6 mg/dl Magnesium Level 2.0 mg/dl Bedside Glucose 109 mg/dl 121 mg/dl 143 mg/dl Assessment and Plan (1) Sepsis Assessment & Plan: ? pulm source, would give 7 days abx for ? aspiration, if pt to be d/c home prior to completion would change to augmentin to complete course. All cultures negative, afebrile. No new ID recs. Continued [facility] stay due to: multiple IV medications needed Discharge planning: home
[2017-01-29] MEDS: MAGNESIUM OXIDE 400 MG TAB PO SCH (20:45)
[2017-01-30] MEDS ORDERED: NURSING VERBAL MED ORDER ONE (00:30)
[2017-01-30] MEDS: BENZONATATE 100MG CAP PO PRN (00:58)
[2017-01-30 03:48] VITALS: BP 125/75; PULSE 90; TEMP 36.7; O2SAT 95
[2017-01-30 04:03] VITALS: BP 153/85; PULSE 96; TEMP 36.7; O2SAT 93
[2017-01-30 04:52] LABS: BASO % 0.4 %; BASO ABS # 0.04 K/uL (0-0.2); COMPLETE YES; EOS % 3.9 %; HEMATOCRIT 36.2 % (37-47); IG% 0.5 %; LYMPH % 23.7 %; LYMPH ABS # 2.19 K/uL (1.2-3.4); MEAN CELL VOLUME 86.4 fL (80-100); MEAN CORPUSCULAR HEMOGLOBIN 28.6 pg (25-34); MEAN CORPUSCULAR HGB CONC 33.1 g/dl (32-36); MEAN PLATELET VOLUME 11.3 fL (7.4-10.4); MONO % 9.5 %; PLATELET COUNT 271 K/uL (130-400); RED BLOOD COUNT 4.19 M/uL (4.2-5.4); WHITE BLOOD COUNT 9.26 K/uL (4.8-10.8)
[2017-01-30 05:06] LABS: PARTIAL THROMBOPLASTIN RATIO 1.8
[2017-01-30 05:17] LABS: BUN/CREATININE RATIO 14.6 (10-20); CREATININE 0.59 mg/dl (0.60-1.20); MAGNESIUM 1.9 mg/dl (1.8-2.4); POTASSIUM 3.5 mmol/L (3.5-5.1)
[2017-01-30] MEDS ORDERED: HEPARIN IV BOLUS 3,000 UNIT in SYRINGE 0 ML IV ONE (05:45)
[2017-01-30] MEDS: HEPARIN 25,000 UNIT/500ML D5W 500 ML IV PRN (06:03)
[2017-01-30] MEDS: METOPROLOL TARTRATE 25 MG TAB PO SCH ×2 (07:40→20:14)
[2017-01-30] MEDS: FAMOTIDINE 20 MG TAB PO SCH (07:41)
[2017-01-30] MEDS: AMIODARONE / D5W 200 ML IV SCH ×2 (07:42→19:46)
[2017-01-30] MEDS: INSULIN ASPART 100 UNITS/ML 3 ML PEN SC SCH ×4 (07:43→20:18)
[2017-01-30] MEDS: INSULIN GLARGINE SOLOSTAR 100 UNITS/ML 3 ML PEN SC SCH ×2 (07:44→20:19)
[2017-01-30] MEDS: DOCUSATE SODIUM 100 MG CAP PO SCH ×2 (08:12→20:14)
[2017-01-30] MEDS: FUROSEMIDE 20 MG TAB PO SCH (08:12)
[2017-01-30 08:13] VITALS: BP 132/83; PULSE 108; TEMP 36.9; O2SAT 97
[2017-01-30] MEDS: CLOPIDOGREL BISULFATE 75 MG TAB PO SCH (08:13)
[2017-01-30] MEDS: LISINOPRIL 10 MG TAB PO SCH (08:13)
--- NOTE | 2017-01-30 09:42 | CARDIOLOGY PROGRESS NOTE ---
DATE: 01/30/2017 SUBJECTIVE: Ms. Gr is resting comfortably at the bedside without complaints of chest pain, dyspnea, or palpitations. OBJECTIVE: VITAL SIGNS: Blood pressure 132/83 with a regular pulse of 100. Respiratory rate is 20. The patient is afebrile at 36.9 degrees Celsius. Saturations 97% on room air. NECK: Supple with full carotid upstrokes. No carotid bruits. Jugular venous pressure is flat at 90 degrees. There is no thyromegaly. CARDIOVASCULAR: Reveals tachycardic but regular rhythm. Heart sounds are distant. No obvious murmurs. No S3. LUNGS: Clear without rales, rhonchi, or wheezes. ABDOMEN: Obese without bruits. EXTREMITIES: Reveal intact radial pulses bilaterally. Trace pretibial edema is noted. LABORATORY DATA: CBC notes hemoglobin of 12.0, hematocrit 36.2, white count 9.2, platelet count 271,000. Electrolytes note a sodium of 142, potassium 3.5, chloride 111, bicarbonate 24, BUN 9, creatinine 0.6, glucose 140. PTT is 46.6. ekg monitor notes paroxysms of atrial fibrillation with a rapid ventricular response. IMPRESSION AND PLAN: 1. Sepsis syndrome -- has resolved. Presumptive diagnosis of an aspiration pneumonia as a potential source. Remains on intravenous antibiotics. 2. Paroxysmal atrial fibrillation -- has been in and out of atrial fibrillation. Remains on intravenous amiodarone and heparin. Would continue those medications for now. May increase dose of beta shannon. 3. Coronary artery disease -- status post coronary artery bypass graft x3 in January 2014. 4. Mild left ventricular dysfunction -- ejection fraction of 45-50% at time of presentation. Suspect this is related to her critical illness. 5. Hypercholesterolemia. 6. Diabetes mellitus. 7. Gastroesophageal reflux disease. 8. Peripheral neuropathy.
[2017-01-30 11:09] VITALS: BP 148/85; PULSE 70; TEMP 36.7; O2SAT 99
[2017-01-30] MEDS ORDERED: CITALOPRAM 20 MG TAB PO ONE (11:15)
[2017-01-30] MEDS: AMOXICILLIN/CLAVULANATE TAB 875 MG TAB PO SCH ×2 (12:06→15:46)
[2017-01-30 12:42] LABS: PARTIAL THROMBOPLASTIN RATIO 2.6
[2017-01-30 16:02] VITALS: BP 143/84; PULSE 103; TEMP 37.1; O2SAT 97
[2017-01-30 16:12] VITALS: Ht 162.6 cm; Wt 96.0 kg
[2017-01-30 19:32] VITALS: BP 146/88; PULSE 120; TEMP 36.9; O2SAT 98
--- NOTE | 2017-01-30 20:11 | Family Medicine Progress Note ---
Progress Note Date of Service Jan 30, 2017. Subjective Pt evaluation today including: conversation w/ patient, physical exam, chart review, lab review, review of studies Pain: pt denies PO Intake: adequate Voiding: no voiding problems Pt tearful upon interview today, saying she's not sure she will survive this, and worried about what caused her illness in the first place. Reassured patient that her health is improving. Pt denies suicidality, although does have h/o depression and has not been given her citalopram since admission. Pt also states that she has numerous cats that she is "getting rid of" because they scratch her so much and she can't take care of them. Pt says her coughing is keeping her up at night, and that she is not able to sleep well, says she didn' t fall asleep until 6 am this morning. Pt states she would like to go home. Also discussed her use of Clifford, pt states she uses it for headaches. Constitutional: No fever, No chills, No sweats Respiratory: + cough, + sputum (gil in color), No dyspnea on exertion Cardiovascular: No chest pain, No orthopnea, No palpitations Abdomen: No pain, No nausea, No vomiting, No diarrhea, No constipation Musculoskeletal: No joint pain Medications Current Inpatient Medications Medications (Trade) Dose Ordered Sig/Clint Route Start Time Stop Time Status Last Admin Dose Admin Lorazepam 1 mg/ Syringe 1 ml @ 0.5 mls/min Q4H PRN IV 01/24/17 02:00 02/23/17 01:59 Miscellaneous Information (Consult Glycemic Management Pharmacy) 1 ea DAILY PRN N/A 01/24/17 02:06 02/23/17 02:05 Lorazepam (Ativan Inj) 1 mg Q4H PRN IV 01/24/17 03:00 02/23/17 02:59 01/24/17 14:38 1 MG Clopidogrel Bisulfate (plAVix TAB) 75 mg QAM PO 01/25/17 09:00 02/24/17 08:59 01/30/17 08:13 75 MG Heparin Sodium (Porcine) (Heparin 10 Unit/ ml 5 ml Flush) 5 ml PRN PRN FLUSH 01/25/17 00:15 02/24/17 00:14 Miconazole Nitrate (Desenex Powder) 1 appln BID PRN EXT 01/25/17 13:15 02/24/17 13:14 Insulin Glargine (Lantus Solostar Pen) SEE PROTOCOL Q12 SC 01/25/17 18:00 02/24/17 17:59 01/30/17 07:44 8 UNITS Ketorolac Tromethamine (Toradol Inj) 15 mg Q6H PRN IV. 01/28/17 01:15 02/02/17 01:14 01/29/17 17:00 15 MG Acetaminophen (Tylenol Tab) 650 mg Q4H PRN PO 01/28/17 03:15 02/27/17 03:14 01/29/17 01:31 650 MG Lisinopril (Zestril Tab) 10 mg QAM PO 01/29/17 09:00 02/28/17 08:59 01/30/17 08:13 10 MG Magnesium Oxide (Mag-Ox Tab) 400 mg HS PO 01/28/17 21:00 02/27/17 20:59 01/29/17 20:45 400 MG Senna/Docusate Sodium (Senokot S Tab) 1 tab BID PRN PO 01/28/17 10:15 02/27/17 10:14 Insulin Aspart (novoLOG ASPART) SLIDING SCALE G... ACHS SC 01/28/17 12:00 02/27/17 11:59 01/30/17 16:45 1 UNITS Docusate Sodium (coLACE CAP) 100 mg BID PO 01/28/17 21:00 02/27/17 20:59 01/30/17 08:12 100 MG Polyethylene (Miralax Powder Packet) 17 gm DAILY PRN PO 01/28/17 11:15 02/27/17 11:14 Metoprolol Tartrate (Lopressor Tab) 25 mg BID PO 01/28/17 21:00 02/27/17 20:59 01/30/17 07:40 25 MG Amiodarone HCL/ Dextrose 200 ml @ 16.7 mls/hr [id number] IV 01/28/17 20:15 02/27/17 20:14 01/30/17 19:46 16.7 MLS/HR Heparin Sodium/ Dextrose 500 ml @ 29 mls/hr [id number] PRN IV 01/28/17 15:00 02/27/17 14:59 01/30/17 06:03 29 MLS/HR Al Hydroxide/Mg Hydroxide (Maalox Susp) 15 ml Q6H PRN PO 01/28/17 15:00 02/27/17 14:59 Furosemide (Lasix Tab) 20 mg QAM PO 01/29/17 09:00 02/28/17 08:59 01/30/17 08:12 20 MG Famotidine (Pepcid Tab) 40 mg QAM PO 01/30/17 09:00 03/01/17 08:59 01/30/17 07:41 40 MG Benzonatate (Tessalon Perles Cap) 100 mg Q8H PRN PO 01/30/17 00:45 03/01/17 00:44 01/30/17 00:58 100 MG Citalopram Hydrobromide (celeXA TAB) 20 mg QAM PO 01/31/17 09:00 03/02/17 08:59 Amoxicillin/ Clavulanate Potassium (Augmentin Tab) 875 mg BIDM PO 01/30/17 11:00 02/06/17 10:59 01/30/17 15:46 875 MG Objective Physical Exam General Appearance: WD/WN, + moderate distress, + obese, + pertinent finding ( tearful) Eyes: normal inspection, EOMI Respiratory/Chest: chest non-tender, lungs clear, normal breath sounds, no respiratory distress, no accessory muscle use Cardiovascular: regular rate, rhythm, no edema, no gallop, no JVD, no murmur Abdomen: normal bowel sounds, non tender, soft Extremities: normal range of motion, non-tender, + pertinent finding (numerous scratch bernardo on lower extremities b/l) Neurologic/Psychiatric: + depressed affect Skin: normal color, warm/dry Laboratory Results 01/30/17 04:29 Red Blood Count 4.19, Mean Corpuscular Volume 86.4, Mean Corpuscular Hemoglobin 28.6, Mean Corpuscular Hemoglobin Concent 33.1, Mean Platelet Volume 11.3, Neutrophils (%) (Auto) 62.0, Lymphocytes (%) (Auto) 23.7, Monocytes (%) (Auto) 9.5, Eosinophils (%) (Auto) 3.9, Basophils (%) (Auto) 0.4, Neutrophils # (Auto) 5.74, Lymphocytes # (Auto) 2.19, Monocytes # (Auto) 0.88, Eosinophils # (Auto) 0.36, Basophils # (Auto) 0.04 01/30/17 04:29 Test 01/30/17 04:29 01/30/17 12:11 01/30/17 16:08 White Blood Count 9.26 K/uL (4.8-10.8) Red Blood Count 4.19 M/uL (4.2-5.4) Hemoglobin 12.0 g/dL (12.0-16.0) Hematocrit 36.2 % (37-47) Mean Corpuscular Volume 86.4 fL (80-100) Mean Corpuscular Hemoglobin 28.6 pg (25-34) Mean Corpuscular Hemoglobin Concent 33.1 g/dl (32-36) Platelet Count 271 K/uL (130-400) Mean Platelet Volume 11.3 fL (7.4-10.4) Neutrophils (%) (Auto) 62.0 % Lymphocytes (%) (Auto) 23.7 % Monocytes (%) (Auto) 9.5 % Eosinophils (%) (Auto) 3.9 % Basophils (%) (Auto) 0.4 % Neutrophils # (Auto) 5.74 K/uL (1.4-6.5) Lymphocytes # (Auto) 2.19 K/uL (1.2-3.4) Monocytes # (Auto) 0.88 K/uL (0.11-0.59) Eosinophils # (Auto) 0.36 K/uL (0-0.5) Basophils # (Auto) 0.04 K/uL (0-0.2) RDW Standard Deviation 44.7 fL (36.4-46.3) RDW Coefficient of Variation 14.5 % (11.5-14.5) Immature Granulocyte % (Auto) 0.5 % Immature Granulocyte # (Auto) 0.05 K/uL (0.00-0.02) Anion Gap 7.0 mmol/L (3-11) Est Creatinine Clear Calc Drug Dose 98.2 ml/min Estimated GFR () 106.9 Estimated GFR (Non- 92.2 BUN/Creatinine Ratio 14.6 (10-20) Calcium Level 9.0 mg/dl (8.5-10.1) Magnesium Level 1.9 mg/dl (1.8-2.4) Activated Partial Thromboplast Time 67.1 SECONDS (21.0-31.0) Partial Thromboplastin Ratio 2.6 Bedside Glucose 151 mg/dl (70-90) Assessment and Plan 72 F here for sepsis and metabolic encephalopathy, fever of unknown origin. Pt' s son (Norberto) and daughter (Zandra) brought her in their car to hospital from home in [place], after other son (who lives with patient, as does pt's ) called them for help saying that mom was not acting like herself. Norberto and Zandra say that their mom was incoherent, and had vomited brown liquid when they' d arrived, and was agitated. Hospital day: day 6 (01/30) Fever of an unknown source/Metabolic encephalopathy of unknown origin/Agitation - afebrile for >48 hours now. - elevation of troponin 12, 9.19, possible source of fever may be cardiac. Subendocardial Stress Ischemia vs. RI - hx of CAD/CABG - source not likely rheumatological (RF negative, MATTHEW and dsDNA also negative. ESR elevated 44) - blood cx, urine, and CSF negative for growth. UA showed ++WBC, RBC, and uric acid. - Urine tox + benzos and opiates - home Clifford - perhaps source is aspiration? CXR shows no consolidation. - Finished 5 days of IV Rocephin mono therapy - Switched today to PO Augmentin. ID recommends 7 day course total. - Agitation improved, stable. - Repeat CXR shows small basilar pleural effusions, no larger in size when compared to study done 01/24. Venous dopplers show no DVTs. - Pt has multiple scratches on her skin (lower extremities) which she says are from her cats. Possible bartonella infection with encephalopathy, however treatment is adequate to cover. Pt states she is getting rid of these cats because she can't "take care of them anymore". PAF - Runs of atrial fibrillation with rapid ventricular response. On amiodarone drip, per Cardio. Continue beta blockade. - Will switch to Amiodarone 200 mg PO daily when appropriate, and on discharge. - per cardio, will need anticoagulation. On heparin now. Will switch to PO Xarelto when appropriate. (Case mgmt says copay is $0 for it.) Cough - continue Tessalon perles daily DMII - ISS, glycemic consult on board - BSG controlled 80s HTN /CAD/CABG - continue Clopidogrel Bisulfate (plAVix TAB) 75 mg - continue Metoprolol Tartrate 25 mg BID, Lisinopril 10mg daily. - Restarted home Lasix 20 mg dose. DC'ed diamox. Depression/ anxiety - Pt tearful today, restarted home Citalopram 20 mg. - Alprazolam held. Given risk of aspiration pneumonia, consider discontinuing on discharge. Neuropathy - Takes Gabapentin at home - will restart when appropriate - Takes Clifford at home - Urine tox + for opiates and benzos. Monitor for s/s opiate/benzo withdrawal. GERD - Takes pepcid at home. - Given maalox here. Prophylaxis: SCD, Heparin Dispo: Transfer to TELE. PT/OT eval once clinically improved for discharge planning. Daughter Zandra primary decision maker Code: FULL Continued [facility] stay due to: multiple IV medications needed Discharge planning: home Resident Tracking Resident Involvement: Resident Care Provided Care Provided: [facility] Medicine Addendum: Oneal Henderson MD, PhD on 01/29/17 @ 18:28 Addendum Section Attending Resident Physician Supervision Note: I independently interviewed and examined the patient and verified the kruger history and physical, reviewed labs and image studies, discussed the case with the resident and agree with the findings and care plan. Fever of an unknown source/Metabolic encephalopathy of unknown origin/Agitation source may be pulmonary or else, such as rheumatological RF negative, MATTHEW/ dsDNA pending. ESR elevated 44., ID recommends 7 day course total. AF with rapid HR yesterday - Amiodarone drip added, heparin drip started , per cardio, seems to be a good candidate for long-term anticoagulation as this arrhythmia did occur following her bypass surgery 3 years ago. will talk to cardio, and then decide Continued [facility] stay due to: abnormal vital signs Discharge planning: home Resident Tracking Resident Involvement: Resident Care Provided Care Provided: Adult Hospital Medicine
[2017-01-30] MEDS: MAGNESIUM OXIDE 400 MG TAB PO SCH (20:15)
[2017-01-31] VITALS (8 sets, daily range): BP systolic 121–176; BP diastolic 66–80; PULSE 66–96; TEMP 36.9–37.1; O2SAT 96–99
[2017-01-31] MEDS: HEPARIN 25,000 UNIT/500ML D5W 500 ML IV PRN (00:35)
[2017-01-31 05:02] LABS: BUN/CREATININE RATIO 15.9 (10-20); CALCIUM 8.4 mg/dl (8.5-10.1); CREATININE 0.55 mg/dl (0.60-1.20); POTASSIUM 3.4 mmol/L (3.5-5.1)
[2017-01-31 05:06] LABS: PARTIAL THROMBOPLASTIN RATIO 2.2
[2017-01-31 07:38] LABS: BASO % 0.5 %; BASO ABS # 0.04 K/uL (0-0.2); COMPLETE YES; EOS % 3.8 %; HEMATOCRIT 37.1 % (37-47); IG% 0.5 %; LYMPH % 24.3 %; LYMPH ABS # 2.04 K/uL (1.2-3.4); MEAN CELL VOLUME 86.9 fL (80-100); MEAN CORPUSCULAR HEMOGLOBIN 28.1 pg (25-34); MEAN CORPUSCULAR HGB CONC 32.3 g/dl (32-36); MEAN PLATELET VOLUME 11.4 fL (7.4-10.4); MONO % 10.9 %; PLATELET COUNT 332 K/uL (130-400); RED BLOOD COUNT 4.27 M/uL (4.2-5.4); WHITE BLOOD COUNT 8.41 K/uL (4.8-10.8)
[2017-01-31] MEDS ORDERED: POTASSIUM CHLORIDE 20 MEQ TABCR PO STA (07:46)
[2017-01-31] MEDS: METOPROLOL TARTRATE 25 MG TAB PO SCH ×2 (08:03→21:48)
[2017-01-31] MEDS: DOCUSATE SODIUM 100 MG CAP PO SCH ×2 (08:04→21:49)
[2017-01-31] MEDS: LISINOPRIL 10 MG TAB PO SCH (08:04)
[2017-01-31] MEDS: FAMOTIDINE 20 MG TAB PO SCH (08:04)
[2017-01-31] MEDS: FUROSEMIDE 20 MG TAB PO SCH (08:04)
[2017-01-31] MEDS: CITALOPRAM 20 MG TAB PO SCH (08:05)
[2017-01-31] MEDS: CLOPIDOGREL BISULFATE 75 MG TAB PO SCH (08:05)
[2017-01-31] MEDS: AMIODARONE / D5W 200 ML IV SCH (08:08)
[2017-01-31] MEDS: INSULIN ASPART 100 UNITS/ML 3 ML PEN SC SCH ×4 (08:11→21:00)
[2017-01-31] MEDS: INSULIN GLARGINE SOLOSTAR 100 UNITS/ML 3 ML PEN SC SCH ×2 (08:12→21:54)
--- NOTE | 2017-01-31 09:40 | CARDIOLOGY PROGRESS NOTE ---
DATE: 01/31/2017 SUBJECTIVE: Ms. Gr is resting comfortably at the bedside without complaints of chest pain, dyspnea, or palpitations. OBJECTIVE: VITAL SIGNS: Blood pressure 150/70 with a regular pulse of 76. Respiratory rate is 18. The patient is afebrile at 36.9 degrees Celsius. Saturation is 99% on 3 liters nasal cannula. NECK: Supple with full carotid upstrokes. There are no carotid bruits. Jugular venous pressure is flat at 90 degrees. There is no thyromegaly. CARDIOVASCULAR: Reveals a regular rhythm with normal S1 and S2. Heart sounds are distant. No obvious murmurs. LUNGS: Clear without rales, rhonchi, or wheezes. ABDOMEN: Obese without bruits. EXTREMITIES: Reveal intact radial artery pulses bilaterally. There is no peripheral edema. LABORATORY DATA: CBC notes a hemoglobin of 12.0, hematocrit 37.1, white count 8.4, and platelet count 332,000. Electrolytes note a sodium of 142, potassium 3.4, chloride 110, bicarbonate 25, BUN 9, creatinine 0.55, and glucose 174. PTT is 56.9. sink maker noted conversion to sinus rhythm at approximately 12:30 a.m. today. IMPRESSION AND PLAN: 1. Sepsis syndrome -- resolved. Presumptive diagnosis of an aspiration pneumonia. 2. Paroxysmal atrial fibrillation -- has converted to sinus rhythm earlier this morning. Remains on intravenous amiodarone and heparin. Could transition to oral medications. Would use amiodarone at 200 mg b.i.d. Consider use of one of the newer anticoagulants. 3. Coronary artery disease -- status post coronary artery bypass graft x3 in January 2014. 4. Mild left ventricle dysfunction -- ejection fraction of 45%-50% at time of presentation. Suspect social related to her critical illness. 5. Hypercholesterolemia. 6. Diabetes mellitus. 7. Gastroesophageal reflux disease. 8. Peripheral neuropathy.
[2017-01-31] MEDS: AMOXICILLIN/CLAVULANATE TAB 875 MG TAB PO SCH ×2 (09:44→17:43)
--- NOTE | 2017-01-31 10:42 | Family Medicine Progress Note ---
Progress Note Date of Service Jan 31, 2017. Subjective Pt evaluation today including: conversation w/ patient, physical exam, chart review, lab review, review of studies Voiding: no voiding problems Pt reports continuing to be unrested as she struggles to sleep in the hospital, but apparently this is a chronic issue for her. Pt reports that the coughing can keep her up at night, but otherwise has no complaints. Pt reports she is not as sad as she felt yesterday, denies chest pain or shortness of breath. Pt states she will go and stay with her son Norberto on discharge, and that he is in the process of getting rid of her cats. Pt motivated to return home, discussed that xarelto will be no copay per case mgmt. Constitutional: No fever, No chills Respiratory: + cough, + sputum, No shortness of breath, No dyspnea on exertion Cardiovascular: No chest pain, No orthopnea, No edema Abdomen: No pain, No nausea, No vomiting, No constipation Medications Current Inpatient Medications Medications (Trade) Dose Ordered Sig/Clint Route Start Time Stop Time Status Last Admin Dose Admin Lorazepam 1 mg/ Syringe 1 ml @ 0.5 mls/min Q4H PRN IV 01/24/17 02:00 02/23/17 01:59 Miscellaneous Information (Consult Glycemic Management Pharmacy) 1 ea DAILY PRN N/A 01/24/17 02:06 02/23/17 02:05 Lorazepam (Ativan Inj) 1 mg Q4H PRN IV 01/24/17 03:00 02/23/17 02:59 01/24/17 14:38 1 MG Clopidogrel Bisulfate (plAVix TAB) 75 mg QAM PO 01/25/17 09:00 02/24/17 08:59 01/31/17 08:05 75 MG Heparin Sodium (Porcine) (Heparin 10 Unit/ ml 5 ml Flush) 5 ml PRN PRN FLUSH 01/25/17 00:15 02/24/17 00:14 Miconazole Nitrate (Desenex Powder) 1 appln BID PRN EXT 01/25/17 13:15 02/24/17 13:14 Ketorolac Tromethamine (Toradol Inj) 15 mg Q6H PRN IV. 01/28/17 01:15 02/02/17 01:14 01/29/17 17:00 15 MG Acetaminophen (Tylenol Tab) 650 mg Q4H PRN PO 01/28/17 03:15 02/27/17 03:14 01/29/17 01:31 650 MG Lisinopril (Zestril Tab) 10 mg QAM PO 01/29/17 09:00 02/28/17 08:59 01/31/17 08:04 10 MG Magnesium Oxide (Mag-Ox Tab) 400 mg HS PO 01/28/17 21:00 02/27/17 20:59 01/30/17 20:15 400 MG Senna/Docusate Sodium (Senokot S Tab) 1 tab BID PRN PO 01/28/17 10:15 02/27/17 10:14 Insulin Aspart (novoLOG ASPART) SLIDING SCALE G... ACHS SC 01/28/17 12:00 02/27/17 11:59 01/31/17 08:11 6 UNITS Docusate Sodium (coLACE CAP) 100 mg BID PO 01/28/17 21:00 02/27/17 20:59 01/30/17 20:14 100 MG Polyethylene (Miralax Powder Packet) 17 gm DAILY PRN PO 01/28/17 11:15 02/27/17 11:14 Metoprolol Tartrate (Lopressor Tab) 25 mg BID PO 01/28/17 21:00 02/27/17 20:59 01/31/17 08:03 25 MG Amiodarone HCL/ Dextrose 200 ml @ 16.7 mls/hr [id number] IV 01/28/17 20:15 02/27/17 20:14 01/31/17 08:08 16.7 MLS/HR Heparin Sodium/ Dextrose 500 ml @ 29 mls/hr [id number] PRN IV 01/28/17 15:00 02/27/17 14:59 01/31/17 00:35 29 MLS/HR Al Hydroxide/Mg Hydroxide (Maalox Susp) 15 ml Q6H PRN PO 01/28/17 15:00 02/27/17 14:59 Furosemide (Lasix Tab) 20 mg QAM PO 01/29/17 09:00 02/28/17 08:59 01/31/17 08:04 20 MG Famotidine (Pepcid Tab) 40 mg QAM PO 01/30/17 09:00 03/01/17 08:59 01/31/17 08:04 40 MG Benzonatate (Tessalon Perles Cap) 100 mg Q8H PRN PO 01/30/17 00:45 03/01/17 00:44 01/30/17 00:58 100 MG Citalopram Hydrobromide (celeXA TAB) 20 mg QAM PO 01/31/17 09:00 03/02/17 08:59 01/31/17 08:05 20 MG Amoxicillin/ Clavulanate Potassium (Augmentin Tab) 875 mg BIDM PO 01/30/17 11:00 02/06/17 10:59 01/30/17 15:46 875 MG Insulin Glargine (Lantus Solostar Pen) 10 units Q12 SC 01/31/17 09:00 03/02/17 08:59 01/31/17 08:12 10 UNITS Objective Physical Exam General Appearance: WD/WN, no apparent distress Eyes: normal inspection, EOMI Respiratory/Chest: chest non-tender, lungs clear, normal breath sounds, no respiratory distress, no accessory muscle use Cardiovascular: regular rate, rhythm, no edema, no gallop, no JVD Abdomen: normal bowel sounds, non tender, soft Extremities: normal range of motion, non-tender, no pedal edema Neurologic/Psychiatric: alert, normal mood/affect, oriented x 3 Skin: normal color, warm/dry, no rash Assessment and Plan 72 F here for sepsis and metabolic encephalopathy, fever of unknown origin. Pt' s son (Norberto) and daughter (Zandra) brought her in their car to hospital from home in [place], after other son (who lives with patient, as does pt's ) called them for help saying that mom was not acting like herself. Norberto and Zandra say that their mom was incoherent, and had vomited brown liquid when they' d arrived, and was agitated. Hospital day: day 7 (01/31) Fever of an unknown source/Metabolic encephalopathy of unknown origin/Agitation , likely 2/2 aspiration pneumonia - s/o aspiration pna: urine drug screen + benzodiazepines and opiates, pt apparently takes [place] for her head aches, and unknown reasons for benzodiazepines. - afebrile for >48 hours now. Agitation improved, stable. - elevation of troponin 12, 9.19, possible source of fever may be cardiac. Subendocardial Stress Ischemia vs. NE - hx of CAD/CABG - blood cx, urine, and CSF negative for growth. UA showed ++WBC, RBC, and uric acid. - Finished 5 days of IV Rocephin mono therapy - Switched today to PO Augmentin. ID recommends 7 day course total. - Repeat CXR shows small basilar pleural effusions, no larger in size when compared to study done 01/24. Venous dopplers show no DVTs. - Pt has multiple scratches on her skin (lower extremities) which she says are from her cats. Possible bartonella infection with encephalopathy, however treatment is adequate to cover. Pt states she is getting rid of these cats because she can't "take care of them anymore". HTN /CAD/CABG - status post coronary artery bypass graft x3 in January 2014. - continue Clopidogrel Bisulfate (plAVix TAB) 75 mg - continue Metoprolol Tartrate 25 mg BID, Lisinopril 10mg daily. - Restarted home Lasix 20 mg dose. DC'ed diamox. - Mild left ventricle dysfunction - ejection fraction of 45%-50% at time of presentation. PAF - converted to NSR overnight, rate is 60-70s with PVC's. - cardio recommends switch to PO Amiodarone 200 mg BID with follow up. Started. - Continue beta blockade. - per cardio, will need anticoagulation. On heparin now. Discussed with pt risks /benefits, and pt agrees to trying newer generation. On PO Xarelto now. (Case mgmt says copay is $0 for it.) Hypokalemia, hypomagnesemia - K was 3.4, ordered repletion 20 meq, now 3.7, - Mg was 1.9, now 1.7. Will continue to replete and recheck AM tomorrow. Cough - continue Tessalon perles daily DMII - ISS, glycemic consult on board Depression/ anxiety - Pt tearful yesterday, restarted home Citalopram 20 mg. Improved mood today. - Alprazolam held. Given risk of aspiration pneumonia, consider discontinuing on discharge. Neuropathy - Takes Gabapentin at home - will restart when appropriate - Takes [place] at home - Urine tox + for opiates and benzos. Monitor for s/s opiate/benzo withdrawal. GERD - Takes pepcid at home. - Given maalox here. Prophylaxis: SCD, Heparin Dispo: Tele. Likely DC tomorrow. PT/OT evals say home an option - pt wants to go stay with son Norberto after discharge, with home health. Case mgmt checking with Daughter Zandra who is primary decision maker Code: FULL Continued [facility] stay due to: abnormal vital signs Discharge planning: home with home health Resident Tracking Resident Involvement: Resident Care Provided Care Provided: Adult Hospital Medicine
--- NOTE | 2017-01-31 11:16 | Pharmacy Progress Note ---
Glycemic: Assessment & Plan Date of Service Jan 31, 2017. Assessment & Plan ASSESSMENT: 01/30/17 * See progress note from 01/25/17 for more background info, in short: * Pt receiving SQ basal bolus insulin regimen for hyperglycemia secondary to baseline DM (outpatient regimen on hold - unknown insulin doses), stress/ infection * Pt was started on Peptamen bariatric over the weekend, which was advanced to goal, and BSGs were unchanged * Per ICU rounds this AM - plan is to discontinue feeds and advance diet to clears * Changes needed to insulin regimen: * AM Fasting BSG = 84 mg/dl. This is slightly below goal range for a patient in the ICU. Regimen is obviously basal heavy as patient has received 1 unit of Novolog over the past 72 hours. Reduce Lantus by 50% now that tube feeds are off and re-evaluate tomorrow. * Post-prandial BSGs are in range however CF/CR hasn't been utilized since admission. Loosen to wt based/stress of 2 and continue to monitor closely with Q 4 checks. 01/31/17 * Over the past 48 hours patients BSGs have remained stable with a total daily dose of 30-35 units of insulin * Only changes I plan to make today is that since patient has been so stable, she no longer requires a Lantus scale - I will schedule doses * Will continue to follow and considering signing off if patient remains stable over next 24 hours PLAN FOR INPATIENT GLYCEMIC CONTROL: * Oral Agents * Continue to hold outpatient oral diabetes medications. * Basal insulin * Lantus 10 units BID * Bolus insulin * NovoLog per scale ACHS * Goal Range: Low 120 mg/dL - High 150 mg/dL * Correction Factor: 20 mg/dL/unit * Nutritional / Prandial insulin per carb ratio of 1 unit per 7 grams CHO consumed * Please note that the plan above was derived based on current level of insulin resistance and hospital stress. These recommendations are appropriate for inpatient admission only. Plan of care upon discharge will need to be reassessed to avoid potential outpatient hypo/hyperglycemia. Thank you.
[2017-01-31] MEDS ORDERED: RIVAROXABAN 20 MG TAB PO ONE (13:32)
[2017-01-31 14:37] LABS: BUN/CREATININE RATIO 14.1 (10-20); CALCIUM 8.8 mg/dl (8.5-10.1); CREATININE 0.73 mg/dl (0.60-1.20); MAGNESIUM 1.7 mg/dl (1.8-2.4); PHOSPHORUS 2.4 mg/dl (2.5-4.9); POTASSIUM 3.7 mmol/L (3.5-5.1)
--- NOTE | 2017-01-31 17:18 | Progress Note ---
Post ICU Progress Note Date & Time Jan 31, 2017 at 17:09 Vital Signs Vital Signs Past 12 Hours Date Time Temp Pulse Resp B/P (MAP) Pulse Ox O2 Delivery O2 Flow Rate FiO2 01/31/17 16:00 Room Air 01/31/17 15:58 36.9 71 18 150/71 (97) 97 Room Air 01/31/17 12:00 Room Air 01/31/17 11:46 37.0 66 20 130/75 (93) 97 Room Air 01/31/17 08:00 Room Air 01/31/17 07:47 36.9 76 19 154/73 (100) 99 Room Air Notes Patient admitted for acute mental status changes. Found to be hypercapnic and placed on BiPAP. Patient then further declined and required endotracheal intubation with mechanical ventilation. She was treated with antibiotics and improved over the next few days. She auto-extubated and did not require re- intubation. A PICC line was placed and the patient's femoral line was removed with difficulty or bleeding. She did well and was transferred to the telemetry unit on 01/28. She was seen at bedside today with her daughter present. She had no acute complaints and was eating lunch at the time of my visit. Vital signs are stable and oxygenation was adequate with no signs of distress. She had no complaints and hopes to be discharged soon. Repeat imaging needed: None Follow up cultures: None Reviewed progress notes, labs, and inpatient medication list Continue current management Additional recommendations: Right brachial PICC line in place. Will need followed Critical care medicine will sign off at this time. Please feel free to reconsult as needed. Thank you for including us in the care of this patient Consults & Procedures Consultants: Help Desk Analyst Cardiology - [facility] [place] on 01/25/2017 for elevated Troponins and EKG changes. Procedures: R. femoral central venous catheter. Lumbar puncture Endotracheal intubation Right brachial PICC line Infusion of IV antibiotics and IV Fluid
[2017-01-31] MEDS: MAGNESIUM OXIDE 400 MG TAB PO SCH (21:48)
[2017-01-31] MEDS: AMIODARONE 200 MG TAB PO SCH (21:49)
[2017-01-31] MEDS: LORAZEPAM 2 MG/ML 1 ML VIAL IV PRN (22:03)
[2017-01-31] MEDS: BENZONATATE 100MG CAP PO PRN (22:04)
[2017-02-01] VITALS: O2SAT 97
[2017-02-01 04:00] VITALS: O2SAT 96
[2017-02-01 05:19] LABS: BASO % 0.7 %; BASO ABS # 0.05 K/uL (0-0.2); COMPLETE YES; EOS % 3.7 %; HEMATOCRIT 35.7 % (37-47); IG% 0.4 %; LYMPH % 21.7 %; LYMPH ABS # 1.64 K/uL (1.2-3.4); MEAN CELL VOLUME 87.7 fL (80-100); MEAN CORPUSCULAR HEMOGLOBIN 28.7 pg (25-34); MEAN CORPUSCULAR HGB CONC 32.8 g/dl (32-36); MEAN PLATELET VOLUME 10.7 fL (7.4-10.4); MONO % 10.3 %; NEUT % 63.2 %; PLATELET COUNT 296 K/uL (130-400); RED BLOOD COUNT 4.07 M/uL (4.2-5.4); WHITE BLOOD COUNT 7.56 K/uL (4.8-10.8)
[2017-02-01 05:29] LABS: PARTIAL THROMBOPLASTIN RATIO 1.1
[2017-02-01 05:46] LABS: BUN/CREATININE RATIO 15.8 (10-20); CALCIUM 8.5 mg/dl (8.5-10.1); CREATININE 0.5 mg/dl (0.60-1.20); MAGNESIUM 1.8 mg/dl (1.8-2.4); POTASSIUM 3.9 mmol/L (3.5-5.1)
[2017-02-01] MEDS: INSULIN ASPART 100 UNITS/ML 3 ML PEN SC SCH ×2 (07:00→12:25)
[2017-02-01] MEDS: CITALOPRAM 20 MG TAB PO SCH (07:40)
[2017-02-01] MEDS: AMIODARONE 200 MG TAB PO SCH (07:40)
[2017-02-01] MEDS: DOCUSATE SODIUM 100 MG CAP PO SCH (07:40)
[2017-02-01] MEDS: CLOPIDOGREL BISULFATE 75 MG TAB PO SCH (07:40)
[2017-02-01] MEDS: AMOXICILLIN/CLAVULANATE TAB 875 MG TAB PO SCH (07:41)
[2017-02-01] MEDS: METOPROLOL TARTRATE 25 MG TAB PO SCH (07:41)
[2017-02-01] MEDS: FUROSEMIDE 20 MG TAB PO SCH (07:41)
[2017-02-01] MEDS: LISINOPRIL 10 MG TAB PO SCH (07:41)
[2017-02-01] MEDS: FAMOTIDINE 20 MG TAB PO SCH (07:42)
[2017-02-01] MEDS: INSULIN GLARGINE SOLOSTAR 100 UNITS/ML 3 ML PEN SC SCH (07:52)
[2017-02-01 08:00] VITALS: O2SAT 97
[2017-02-01 08:09] VITALS: BP 124/71; PULSE 74; TEMP 36.9; O2SAT 98
--- NOTE | 2017-02-01 09:12 | CARDIOLOGY PROGRESS NOTE ---
DATE: 02/01/2017 SUBJECTIVE: Mrs. Gr is resting comfortably in bed without complaints of chest pain, dyspnea, or palpitations. OBJECTIVE: VITAL SIGNS: Blood pressure 124/70 with a regular pulse of 74. Respiratory rate is 18. The patient is afebrile at 36.9 degrees Celsius. Saturation is 98% on room air. NECK: Supple with full carotid upstrokes. There are no carotid bruits. Jugular venous pressure is flat at 90 degrees. There is no thyromegaly. CARDIOVASCULAR: Reveals a regular rhythm with normal S1 and S2. Heart sounds are distant. No obvious murmurs. LUNGS: Clear without rales, rhonchi, or wheezes. ABDOMEN: Obese without bruits. EXTREMITIES: Reveal intact radial artery pulses bilaterally. There is no peripheral edema. LABORATORY DATA: CBC notes a hemoglobin of 11.7, hematocrit 35.7, white count 7.5, and platelet count 296,000. Electrolytes note a sodium of 142, potassium 3.9, chloride 110, bicarbonate 25, BUN 8, creatinine 0.5, and glucose 130. PTT is 28.5. civilian jail officer notes sinus rhythm. IMPRESSION AND PLAN: 1. Paroxysmal atrial fibrillation - the patient is now stable on amiodarone 200 mg b.i.d. Would continue at that dose for 2-4 weeks. Could then decrease to 200 mg daily. Tolerating Xarelto without difficulty. She will continue to follow up with Dr. Roe in [place]. 2. Coronary artery disease -- status post CABG x3 in January 2014. 3. Mild left ventricular dysfunction -- ejection fraction of 45%-50% at the time of presentation. Suspect this was related to her critical illness. Can be rechecked as an outpatient. 4. Hypercholesterolemia. 5. Diabetes mellitus. 6. Gastroesophageal reflux disease. 7. Peripheral neuropathy. 8. Sepsis syndrome -- resolved. 9. Disposition -- stable for hospital discharge.
[2017-02-01] MEDS: BENZONATATE 100MG CAP PO PRN (09:27)
[2017-02-01 11:50] VITALS: BP 158/78; PULSE 69; TEMP 36.3; O2SAT 96
[2017-02-01] MEDS ORDERED: LSN10 PO (13:56)
[2017-02-01] MEDS ORDERED: AMOX1TAB43 PO (13:56)
[2017-02-01] MEDS ORDERED: CRD200 PO (13:56)
[2017-02-01] MEDS ORDERED: METO25TA3 PO (13:56)
--- NOTE | 2017-02-01 14:02 | Pharmacy Progress Note ---
Pharmacy Glycemic Sign Off Nt Date of Service Feb 01, 2017. Assessment & Plan ASSESSMENT: * Pharmacy was consulted by Dr Wagner on 01/24/17 for glycemic control and to write orders per [facility] inpatient glycemic control protocol. * Patient has been receiving/requiring ~35 units of insulin per day for adequate glycemic control * BSGs ranging 121 - 166 mg/dl, past 48hr * Regimen has only required minor adjustments over the past 48hrs to achieve this level of control * Do not anticipate further changes in patient status that would quickly deteriorate glycemic control (i.e. patient to be NPO for upcoming procedure, steroids tapering, starting tube feedings, etc). * Please see recommendations for outpatient antidiabetic regimen below. PLAN FOR INPATIENT GLYCEMIC CONTROL: No changes needed to current regimen. * Continue basal insulin with Lantus 10 units SQ BID * Continue NovoLog per scale ACHS/Q6hrs while NPO * Goal range = 120 - 150 mg/dl * CF = 20 mg/dl/unit * CR = 1 unit for ever 7 g CHO consumed * A1c added to discharge instructions to be communicated to PCP. * Pharmacy is signing off of glycemic consult and will no longer be making adjustments to inpatient regimen. Please feel free to re-consult if needed. Thank you. DISCHARGE RECOMMENDATIONS: * A1c 9.3% on 01/25/17, which indicates sub-optimal glycemic control * Patient's insulin doses would benefit from titration after discharge, until goal A1c is reached. Patient requires more insulin than she has been using.
--- NOTE | 2017-02-01 14:17 | Discharge Instructions ---
Discharge Instructions Date of Service Feb 01, 2017. Admission Reason for Admission: Sepsis Discharge Discharge Diagnosis / Problem: Sepsis, Atrial Fibrillation Discharge Goals Goal(s): Decrease discomfort, Improve function, Increase independence, Improve disease control, Learn about illness, Diagnostic testing, Therapeutic intervention, Prevent Disease Progression Activity Recommendations Activity Limitations: as noted below Lifting Limitations: gradually increase as tolerated Exercise/Sports Limitations: as tolerated May Resume Sexual Activity: when tolerated Shower/Bathe: no limitations . Instructions / Follow-Up Instructions / Follow-Up You were admitted due to developing sepsis, likely due to an infection in your lungs. We treated you with antibiotics, both IV and now you are going home on tablet form of antibiotic. Please complete this medication as directed. While your blood tests and urine tests could not pinpoint a specific source for the infection, the antibiotics helped make vast improvement. Sometimes lung infections can come from when our breathing function is decreased - that is why we recommend you no longer take the [place] medication if you are not in need of it for your pain. Please take Tylenol instead, it can be very effective. You seem to have issues with your sleep, and we recommend that you discuss with your primary care doctor at your next follow up appointment. Currently it appears you are taking alprazolam for this, however, alprazolam, especially when combined with [place], greatly decreases your breathing function, and could lead to more lung infections. Please discuss this with your doctor. While you were here, you developed an electrical rhythm disorder called atrial fibrillation. As discussed with the dry placer machine operator, this rhythm will come and go, likely for the rest of your life. It is not something you will likely even notice day to day, although some people do, but in order to help control the fast rate it can cause on your heart, we are sending you home on some new medications. Amiodarone is one of them, please take as directed. Atrial fibrillation can cause blood clots to form in your heart, which can then spread to your brain and cause a stroke - with your moderately high risk, you are being sent home on Xarelto (a blood thinning medication) in order to prevent this from happening in the future. If you have any further questions about your heart, or your heart medications, please discuss this with your dry placer machine operator or primary care doctor. Lastly, you have high blood pressure which needs medicating - we are sending you home on Metoprolol and Lisinopril in low doses, two drugs that help lower your high blood pressure, and also have good benefits for your kidneys and your heart. Please take these as prescribed and discuss with your primary care doctor for future treatment. As always, continue to hydrate your body with plenty of water, low fat, low salt foods and vegetables, and light daily exercise. Taking care of your body day to day can help prevent infection and decrease stress and anxiety. Thank you for allowing us to participate in your care and we wish you good health. Current Hospital Diet Patient's current hospital diet: Diabetes Type 2 Diet, AHA Diet (Heart Healthy) Discharge Diet Recommended Diet: AHA Diet (Heart Healthy), Low Sodium Diet (2gm Na), Diabetes Type 2 Diet Pending Studies Studies pending at discharge: no Laboratory Results Hemoglobin A1c Test 01/25/17 05:17 Range/Units Estimated Average Glucose 220 mg/dl Hemoglobin A1c 9.3 H 4.5-5.6 % Medical Emergencies . Who to Call and When: Medical Emergencies: If at any time you feel your situation is an emergency, please call 911 immediately. . Non-Emergent Contact Non-Emergency issues call your: Primary Care Provider, Project Economist . . "Provider Documentation" section prepared by Maryan Owen. . VTE Core Measure Inpt VTE Proph given/why not?: Unfractionated heparin SQ, SCD's Resident Tracking Resident Involvement: Resident Care Provided Care Provided: Adult Hospital Medicine
[2017-02-01] MEDS ORDERED: RIVA1TAB4 PO (14:20)
[2017-02-01 14:51] VITALS: BP 158/78; PULSE 69; TEMP 36.3; O2SAT 96
[2017-02-01] MEDS ORDERED: RIVAROXABAN 20 MG TAB PO SCH (16:45)
--- NOTE | 2017-02-02 11:56 | Discharge Summary ---
Discharge Summary Date of Service Feb 02, 2017. Discharge Summary Admission Date: Jan 24, 2017 at 01:49 Discharge Date: Feb 01, 2017 Discharge Disposition: Home with services Principal Diagnosis: Sepsis, fever of unknown origin Immunizations: Have You Had Influenza Vaccine: Unknown History of Tetanus Vaccine?: Unknown History of Pneumococcal: Unknown History of Hepatitis B Vaccine: Unknown Medication Reconciliation New Medications: Metoprolol Succ (Toprol Xl) (Toprol-Xl) 25 Mg Tabcr 25 MG PO DAILY, #30 TAB Rivaroxaban (Xarelto) 20 Mg Tab 1 TAB PO DAILY for 30 Days, #30 TAB Amiodarone HCl (Amiodarone HCl) 200 Mg Tab 200 MG PO BID for 30 Days, #60 TAB Amoxicillin & Pot Clavulanate (Amoxicillin/Clavulanate P) 1 Tab Tab 875 MG PO BIDM for 2 Days, #4 TAB Lisinopril (Zestril) 10 Mg Tab 10 MG PO QAM for 30 Days, #30 TAB Continued Medications: Alprazolam (Alprazolam) 0.5 Mg Tab 1 TAB PO DAILY for 30 Days, #30 TAB Atorvastatin (Lipitor) 40 Mg Tab 1 TAB PO DAILY for 30 Days, #30 TAB 5 Refills Citalopram Hydrobromide (Citalopram Hydrobromide) 20 Mg Tab 1 TAB PO DAILY for 30 Days, #30 TAB 5 Refills Clopidogrel (Plavix) 75 Mg Tab 75 MG PO DAILY, TAB Famotidine (Pepcid) 40 Mg Tab 40 MG PO DAILY, TAB Folic Acid (Folvite) 1 Mg Tab 1 TAB PO DAILY for 90 Days, #90 TAB 1 Refill Furosemide (Lasix) 20 Mg Tab 1 TAB PO DAILY for 90 Days, #90 TAB 1 Refill Gabapentin (Neurontin) 100 Mg Cap 100 MG PO BID, CAP Glipizide (Glucotrol) 10 Mg Tab 1 TAB PO BID for 30 Days, #60 TAB 5 Refills Insulin Human NPH (Humulin N) 100 Units/Ml Susp DAILY Insulin Lispro (Human) (Humalog Kwikpen) 100 Unit/Ml Inj SC Discontinued Medications: Hydrocodone/Acetaminophen 10MG/325MG ([place] 10MG/325MG) Tab 1 TAB PO BID PRN for Pain for 30 Days, #60 TAB PRN PAIN Discharge Exam Review of Systems: Constitutional: No fever, No chills, No sweats Respiratory: + cough, No sputum, No wheezing, No shortness of breath, No dyspnea on exertion, No dyspnea at rest Cardiovascular: No chest pain, No orthopnea, No edema, No palpitations Abdomen: No pain, No nausea, No vomiting, No diarrhea, No constipation, No GI bleeding Genitourinary - Female: No dysuria Neurologic: No paralysis, No numbness/tingling Integumentary: No rash, No itch Hospital Course Reason for admission: Ms. Gr is a 72 year old female admitted to [facility] for sepsis and metabolic encephalopathy, as well as fever of unknown origin. Summary/course: Her hospital course was a total of 8 days (01/24/17 - 02/01/17). Before admission, patient's son (Norberto) and daughter (Zandra) brought her here in their car from her home in [place], after her other son (who lives with patient, as does pt's ) called them for help, saying that mom was not acting like herself. Norberto and Zandra say that upon arrival, their mom was very agitated and incoherent, complaining that everything hurt, and also vomited brown fluid. Ms. Gr has no recollection of this, nor her transit to hospital. Her hospital course was a total of 8 days (01/24/17 - 02/01/17), and included time in the ICU initially and then transitioned to telemetry for the latter part. She did require intubation and sedation in the ICU, however improved after 2 days and was extubated. We treated Ms. Gr empirically for infection of the lung, as suspicion for aspiration pneumonia as cause due to Ms. Horne's urine tox report which showed benzodiazepines and opiates. For this reason we have discontinued Ms. Horne's norco on her medication list, as it appears she would take it for headaches only, but did not need any during her admission here. It seems she is still in need of sleep aids, and so I leave it up to your primary care to decide the best way forward with her nightly alprazolam. We as her care team discussed this at length with her, as her main concern was why this sepsis and infection occurred in the first place. Other thoughts included possible bartonella infection due to the fact that she had numerous scratches on her legs from her cats, which she says she has now gotten rid of. Bartonella antibodies were not confirmed, as her clinical condition improved on empiric treatment. Her cardiac enzymes were also elevated on admission, and cardiac source of fever was considered, and is discussed at length below. For this and for her new onset of atrial fibrillation, Ms. Gr was consulted by Cardiology. She is going home on amiodarone and xarelto for anticoagulation, and was in normal sinus rhythm on day of discharge. Ms. Gr is aware of the risks and benefits of treatment, and will follow with her big data platform architect for this from now on. Further details of her stay are below. We appreciate the opportunity to be a part of her care here at [facility]. Relevant Labs: Lyme, hep C, influenza all negative. Urine tox + benzodiazepines, opiates. Troponin elevated (see cardiology notes below) elevated lactate, CRP, ESR. Electrolytes stable, WCC 15 on admission, normalized by 3rd day. CSF, Blood, Urine cultures: all negative for growth. MRSA negative nasal swab. Imaging: CT abdomen: (01/24) No evidence of bowel obstruction. No evidence of free air. No acute inflammatory changes CT head: (01/24) No acute intracranial abnormality. Mild atrophy with chronic microvascular ischemic changes. CT angio chest/thorax: (01/24) No pulmonary emboli identified. No evidence of focal pulmonary consolidation. Cardiomegaly CXR x3: Cardiomegaly without overt pulmonary edema. Small bilateral pleural effusions without lobar airspace consolidation to suggest pneumonia. Fever of an unknown source/Metabolic encephalopathy of unknown origin/Agitation , likely 2/2 aspiration pneumonia - s/o aspiration pna: urine drug screen + benzodiazepines and opiates, pt apparently takes [place] for her head aches, and unknown reasons for benzodiazepines. - afebrile since 01/28 till day of discharge. Agitation and altered state resolved. - elevation of troponin 12, 9.19, possible source of fever may be cardiac. Subendocardial Stress Ischemia vs. WA - hx of CAD/CABG - blood cx, urine, and CSF negative for growth. UA showed ++WBC, RBC, and uric acid. - Finished 5 days of IV Rocephin mono therapy - Switched to PO Augmentin. ID recommends 7 day course total. - Repeat CXR shows small basilar pleural effusions, no larger in size when compared to study done 01/24. Venous dopplers show no DVTs. - Pt has multiple scratches on her skin (lower extremities) which she says are from her cats. Possible bartonella infection with encephalopathy, however treatment is adequate to cover. Pt states she is getting rid of these cats because she can't "take care of them anymore". HTN /CAD/CABG - status post coronary artery bypass graft x3 in January 2014. - Elevated troponins on admission, peaking at 12. Inferior injury pattern on EKG. New vs old, likely present on the initial tracing done in [place]. - Cardiology consulted: echocardiogram shows borderline to mild left ventricular dysfunction with global hypokinesis and no distinct wall motion abnormality. Per cardio, elevated troponin is related to her critical illness in the face of left ventricular hypertrophy and possible subendocardial ischemia. Treated medically, controlled blood pressures. - continue Clopidogrel Bisulfate (plAVix TAB) 75 mg - continue Metoprolol Tartrate 25 mg BID, Lisinopril 10mg daily. - Diuresis in ICU with Diamox daily. While on telemetry unit, restarted home Lasix 20 mg dose. PAF, new onset - converted to NSR overnight, rate is 60-70s with PVC's. - cardio recommends switch to PO Amiodarone 200 mg BID with follow up. Started. - Continue beta blockade. - per cardio, will need anticoagulation. On heparin now. Discussed with pt risks /benefits, and pt agrees to trying newer generation. On PO Xarelto now. (Case mgmt says copay is $0 for it.) Hypokalemia, hypomagnesemia - Repleted, followed during admission, resolved on day of discharge. Cough - Persistent dry cough since day of admission, keeps pt up at night. - Treated with Tessalon perles daily, will continue on discharge. DMII - ISS, glycemic consult on board Depression/ anxiety - Pt tearful yesterday, restarted home Citalopram 20 mg. Improved mood today. - Home Alprazolam held. Given risk of aspiration pneumonia, consider discontinuing on discharge. Neuropathy - Takes Gabapentin at home - will restart when appropriate - Takes [place] at home - Urine tox + for opiates and benzos. Monitor for s/s opiate/benzo withdrawal. GERD - Takes pepcid at home. - Given maalox here. Total Time Spent: Greater than 30 minutes This includes examination of the patient, discharge planning, medication reconciliation, and communication with other providers. Discharge Instructions Please refer to the electronic Patient Visit Report (Discharge Instructions) for additional information. Additional Copies To IMANI URIARTE M.D.; CHATO WONG; Chato Wong M.D. Resident Tracking Resident Involvement: Resident Care Provided Care Provided: Adult Hospital Medicine
== END 2017-02-01 16:23 | disposition home health service (06) | DRG 871 ==
LOC: C.MSICU 01-24 01:49 → UNDOADMIN 01-24 02:01 → C.MSICU 01-24 02:01 → ENRESERV 01-29 12:58 → C.2T 01-29 14:08
PROVIDERS: ADMIT Hospitalist; ATTEND Hospitalist
PROC: 06HM33Z Insertion of Infusion Device into Right Femoral Vein, Percutaneous Approach (ICD-10-PCS; principal; 2017-01-24)
PROC: 5A1945Z Respiratory Ventilation, 24-96 Consecutive Hours (ICD-10-PCS; principal; 2017-01-24)
PROC: 0BH17EZ Insertion of Endotracheal Airway into Trachea, Via Natural or Artificial Opening (ICD-10-PCS; principal; 2017-01-24)
PROC: 0BH17EZ Insertion of Endotracheal Airway into Trachea, Via Natural or Artificial Opening (ICD-10-PCS; 2017-01-24)
PROC: 02HV33Z Insertion of Infusion Device into Superior Vena Cava, Percutaneous Approach (ICD-10-PCS; 2017-01-25)
PROC: 009U3ZX Drainage of Spinal Canal, Percutaneous Approach, Diagnostic (ICD-10-PCS; 2017-01-26)
DX: A41.9 Sepsis, unspecified organism (principal); J69.0 Pneumonitis due to inhalation of food and vomit; G93.41 Metabolic encephalopathy; J96.02 Acute respiratory failure with hypercapnia; I24.8 Other forms of acute ischemic heart disease; R65.20 Severe sepsis without septic shock; R45.1 Restlessness and agitation; I95.9 Hypotension, unspecified; I48.0 Paroxysmal atrial fibrillation; E11.65 Type 2 diabetes mellitus with hyperglycemia; E11.40 Type 2 diabetes mellitus with diabetic neuropathy, unspecified; I10 Essential (primary) hypertension; I25.10 Atherosclerotic heart disease of native coronary artery without angina pectoris; F32.9 Major depressive disorder, single episode, unspecified; F41.9 Anxiety disorder, unspecified; K21.9 Gastro-esophageal reflux disease without esophagitis; E78.5 Hyperlipidemia, unspecified; E66.9 Obesity, unspecified; Z68.34 Body mass index [BMI] 34.0-34.9, adult; I25.2 Old myocardial infarction; Z95.1 Presence of aortocoronary bypass graft; Z86.73 Personal history of transient ischemic attack (TIA), and cerebral infarction without residual deficits; Z79.02 Long term (current) use of antithrombotics/antiplatelets; Z79.4 Long term (current) use of insulin; Z79.899 Other long term (current) drug therapy